=== PATIENT | female | born 1970 | race Caucasian/White ===

== ENCOUNTER 2018-02-20 07:12 | Inpatient (IN) ==
[2018-02-20 08:09] LABS: Baso % (Auto) 1.1 % (0.0-2.0); Eos # (Auto) 0.1 th/mm3 (0.0-0.4); Eos % (Auto) 3.6 % (0.0-4.0); Hematocrit 45.4 % (35.0-46.0); Hemoglobin 15.4 gm/dL (11.6-15.3); Lymph # (Auto) 0.9 th/mm3 (1.0-4.8); Lymph % (Auto) 21.7 % (9.0-44.0); Mean Corpuscular HGB Conc 33.8 % (32.0-36.0); Mean Corpuscular Hemoglobin 35.4 pg (27.0-34.0); Mean Corpuscular Volume 104.7 fL (80.0-100.0); Mean Platelet Volume 9.6 fL (7.0-11.0); Mono # (Auto) 0.4 th/mm3 (0.0-0.9); Mono % (Auto) 10.7 % (0.0-8.0); Neut # (Auto) 2.5 th/mm3 (1.8-7.7); Neut % (Auto) 62.9 % (16.0-70.0); Platelet Count 95 th/mm3 (150-450); Red Blood Count 4.33 mil/mm3 (4.00-5.30); Red Cell Distribution Width 14.7 % (11.6-17.2)
[2018-02-20 08:24] LABS: Alanine Aminotransferase 58 U/L (10-53); Albumin 4.2 g/dL (3.4-5.0); Anion Gap 7 meq/L (5-15); Aspartate Aminotransferase 69 U/L (15-37); Blood Urea Nitrogen 9 mg/dL (7-18); Calcium 9.2 mg/dL (8.5-10.1); Carbon Dioxide 29.7 meq/L (21.0-32.0); Chloride 99 meq/L (98-107); Glomerular Filtration Rate 82 mL/min (>89); Glucose,Random 209 mg/dL (74-106); Potassium 3.8 meq/L (3.5-5.1); Sodium 136 meq/L (136-145)
[2018-02-20 08:29] LABS: Alkaline Phosphatase 94 U/L (45-117); Total Protein 9.4 g/dL (6.4-8.2)
--- NOTE | 2018-02-20 08:37 | XR ---
EXAM DATE: 02/20/2018 8:19 AM EST AGE/SEX: 48 years / Female INDICATIONS: . Chest pain, shortness of breath, vertigo, nausea, vomiting, headache, and blurred vis ion all started last night CLINICAL DATA: This is the patient's initial encounter. Patient reports that signs and symptoms have been present for 1 day and indicates a pain score of 6/10. MEDICAL/SURGICAL HISTORY: None. Abdominal aortic aneurysm repair. COMPARISON: No prior exams available for comparison. FINDINGS: PA and lateral views of the chest demonstrate the lungs to be symmetrically aerated without evidence of mass, infiltrate or effusion. The cardiomediastinal contours are unremarkable. Osseous structures are intact. CONCLUSION: Negative examination. Electronically signed by: Siddharth Zambrano MD 02/20/2018 8:36 AM EST
[2018-02-20 09:09] LABS: Platelet Morphology Normal (Normal)
[2018-02-20] MEDS ORDERED: Morphine Inj 4 MG/ML Vial IV.PUSH ONE ×3 (09:23→15:00)
--- NOTE | 2018-02-20 09:23 | ED ---
HPI General Chief Complaint: Chest Pain Stated Complaint: Dizziness/tightness in chest/blurry vision Time Seen by Provider: 02/20/18 09:22 Source: patient Mode of arrival: ambulatory Limitations: no limitations History of Present Illness MD complaint: Reports chest pain STEMI Alert: No Onset (ago): day(s) (1) Duration: intermittent Onset: during exertion Pain location: Reports substernal Severity: mild Severity scale (1-10): 4 Quality: Reports tightness and heaviness Pain radiation: Reports none Relieving factors: nothing Exacerbating factors: exertion Associated symptoms: Reports nausea, vomiting and palpitations Treatments prior to arrival chest pain: Reports none Related Data On Oral Contraceptives: No Home Medications Medication Instructions Recorded Confirmed amitriptyline 10 mg PO HS 02/20/18 02/20/18 amlodipine 5 mg PO DAILY 02/20/18 02/20/18 duloxetine 30 mg PO DAILY 02/20/18 02/20/18 gabapentin 600 mg PO HS 02/20/18 02/20/18 glimepiride 4 mg PO BID 02/20/18 02/20/18 lisinopril 20 mg PO DAILY 02/20/18 02/20/18 metformin 500 mg PO BID 02/20/18 02/20/18 Allergies Allergy/AdvReac Type Severity Reaction Status Date / Time coconut Allergy Anaphylaxis Verified 02/20/18 09:26 Review of Systems ROS: all other systems reviewed are negative PMFSH History History Provided By: Patient Medical History Medical History Diabetes (Acute) HTN (hypertension) (Acute) Hypercholesterolemia (Acute) Surgical History Surgical History No history of previous surgery (Acute) Social History Social History Substance History: No History of Abuse Second Hand Smoke Exposure: No Smoking Status: Never smoker How Often Do You Have a Drink Containing Alcohol: 4 or more times a week Recent Travel in [facility] within the Last 8 Weeks: No Recent Out of Country Travel within the Last 8 Weeks: No Exam Narrative Exam Narrative: GENERAL: Well-nourished, well-developed patient in no apparent distress. SKIN: Warm and dry. HEAD: Atraumatic. Normocephalic. EYES: Pupils equal and round. No scleral icterus. No injection or drainage. ENT: No nasal bleeding or discharge. Mucous membranes pink and moist. NECK: Trachea midline. No JVD. CARDIOVASCULAR: Regular rate and rhythm. no rubs or gallops RESPIRATORY: No accessory muscle use. Clear to auscultation. Breath sounds equal bilaterally. GASTROINTESTINAL: Abdomen soft, non-tender, nondistended. No rebound or guarding MUSCULOSKELETAL: Extremities without clubbing, cyanosis, or edema. No obvious deformities. NEUROLOGICAL: Awake and alert. No obvious cranial nerve deficits. Motor grossly within normal limits. Five out of 5 muscle strength in the arms and legs. Normal speech. PSYCHIATRIC: Appropriate mood and affect; insight and judgment normal. Course Initial Documented Vital Signs Temperature 98.6 F 02/20/18 07:19 Pulse Rate 100 H 02/20/18 07:19 Respiratory Rate 18 02/20/18 07:19 Blood Pressure 198/102 H 02/20/18 07:19 Pulse Oximetry 96 02/20/18 07:19 Last Documented Vital Signs Temperature 97.9 F 02/25/18 04:00 Pulse Rate 70 02/25/18 06:00 Respiratory Rate 16 02/25/18 04:00 Blood Pressure 147/90 H 02/25/18 04:00 Pulse Oximetry 94 L 02/25/18 04:00 Medical Decision Making MDM Narrative Medical decision making narrative: Electrodes are within normal limits with exception of a random glucose 209. Kidney functions normal First set of troponin negative Mildly elevated total bilirubin 1.5 AST of 69 ALT of 58 No leukocytosis, hemoglobin 15 hematocrit 45, megaloblastic ptosis of 105 MCV, decreased platelet count of 95,000 no left shift Chest x-ray read as negative examination by radiologist Case discussed with Dr. Terry for [facility] who recommended chest pain center Medical Screen Exam Complete: Yes Emergency Medical Condition: Yes Differential Diagnosis Differential Diagnosis: nonstemi versus STEMI versus DKA versus pna Medical Records Medical records reviewed: Yes I reviewed the patient's medical records. Lab Data Result diagrams: 02/25/18 04:55 02/25/18 04:55 POC Results POC Urine Results Negative Lab Results 02/20/18 02/20/18 02/20/18 Range/Units 07:42 07:42 07:42 WBC 4.0 (4.0-11.0) th/mm3 RBC 4.33 (4.00-5.30) mil/mm3 Hgb 15.4 H (11.6-15.3) gm/dL Hct 45.4 (35.0-46.0) % MCV 104.7 H (80.0-100.0) fL MCH 35.4 H (27.0-34.0) pg MCHC 33.8 (32.0-36.0) % RDW 14.7 (11.6-17.2) % Plt Count 95 L (150-450) th/mm3 MPV 9.6 (7.0-11.0) fL Prelim Diff (Auto) Slide review pending Neut % (Auto) 62.9 (16.0-70.0) % Lymph % (Auto) 21.7 (9.0-44.0) % [place] % (Auto) 10.7 H (0.0-8.0) % Eos % (Auto) 3.6 (0.0-4.0) % Baso % (Auto) 1.1 (0.0-2.0) % Neut # (Auto) 2.5 (1.8-7.7) th/mm3 Lymph # (Auto) 0.9 L (1.0-4.8) th/mm3 [place] # (Auto) 0.4 (0.0-0.9) th/mm3 Eos # (Auto) 0.1 (0.0-0.4) th/mm3 Baso # (Auto) 0.0 (0.0-0.2) th/mm3 WBC Differential . Diff Scan Auto diff confirmed Seg Neuts % (Manual) (16-70) % Band Neuts % (Manual) (0-6) % Lymphocytes % (Manual) (9-44) % Monocytes % (Manual) (0-8) % Eosinophils % (Manual) (0-4) % Basophils % (Manual) (0-2) % Metamyelocytes % (Man) (0-1) % Blast Cells % (Manual) (0-0) % Abs Neuts (Manual) (1.8-7.7) th/mm3 Differential Comment . Platelet Estimate Low L (Normal) Platelet Morphology Normal (Normal) Smear Path Review Retic Count (0.4-3.0) % Absolute Retic (20.0-150.0) mil/L PT (9.8-11.6) sec INR Ratio APTT (23.4-31.7) sec Thrombin Time Fibrinogen (227-377) mg/dL D-Dimer Quant (PE/DVT) (0.00-0.50) mg/L FEU Lupus Anticoagulant (NOT DETECTED) Lupus Anticoag aPTT (< OR = 40) seconds Dil Sebastián Viper Venom (< OR = 45) seconds dRVVT Confirm Interp dRVVT Mix Pat/Norm 1:1 dRVVT Mix Interpret Hexagonal Phase Confirm Sodium 136 (136-145) meq/L Potassium 3.8 (3.5-5.1) meq/L Chloride 99 (98-107) meq/L Carbon Dioxide 29.7 (21.0-32.0) meq/L Anion Gap 7 (5-15) meq/L BUN 9 (7-18) mg/dL Creatinine 0.76 (0.50-1.00) mg/dL Estimated GFR 82 L (>89) mL/min POC Glucose (68-110) mg/dl Random Glucose 209 H (74-106) mg/dL Hemoglobin A1c (4.3-6.0) % Calcium 9.2 (8.5-10.1) mg/dL Total Bilirubin 1.5 H (0.2-1.0) mg/dL AST 69 H (15-37) U/L ALT 58 H (10-53) U/L Alkaline Phosphatase 94 (45-117) U/L Lactate Dehydrogenase (84-246) U/L Total Creatine Kinase (26-192) U/L CK-MB (CK-2) (0.5-3.6) ng/mL CK-MB (CK-2) % (0.0-4.0) % Troponin I Less than 0.02 L (0.02-0.05) ng/mL Total Protein 9.4 H (6.4-8.2) g/dL Albumin 4.2 (3.4-5.0) g/dL Triglycerides (42-150) mg/dL Cholesterol (120-200) mg/dL LDL Cholesterol, Calc (0-99) mg/dL HDL Cholesterol (40.0-60.0) mg/dL Cholesterol/HDL Ratio Ratio Lipase 242 (73-393) U/L Vitamin B12 (193-986) pg/mL Folate (3.1-17.5) ng/mL Beta HCG, Quant (0-5) mIU/mL Urine Color (Yellw/Straw) Urine Clarity (Clear) Urine pH (5.0-8.5) Ur Specific [place] (1.002-1.035) Urine Protein (Neg-Trace) mg/dL Urine Glucose (UA) (Negative) mg/dL Urine Ketones (Negative) mg/dL Urine Occult Blood (Negative) Urine Nitrate (Negative) Urine Bilirubin (Negative) Urine Urobilinogen (Less than 2) mg/dL Ur Leukocyte Esterase (Negative) Urine WBC (0-5) /hpf Ur Squamous Epith Cells (0-5) /hpf Micro UA Comment Ur Microscopic Review Urine Culture Comments Nasal Screen MRSA (PCR) (Negative) Beta-2-GPI IgG Ab (< OR = 20) SGU Beta-2-GPI IgA Ab (< OR = 20) ZENA Beta-2-GPI IgM Ab (< OR = 20) [facility] Heparin Dep Plt Ab OD (0.000-1.0) U/mL Hep-Induced Plt Ab Trisha (Negative) Anti-Cardiolipin IgG Ab (0-14) GPL U/mL Anti-Cardiolipin IgA Ab (0-11) APL U/mL Anti-Cardiolipin IgM Ab (0-12) MPL U/mL Blood Type Antibody Screen MTS Gel Crossmatch 02/20/18 02/20/18 02/20/18 Range/Units 07:42 11:55 12:01 WBC (4.0-11.0) th/mm3 RBC (4.00-5.30) mil/mm3 Hgb (11.6-15.3) gm/dL Hct (35.0-46.0) % MCV (80.0-100.0) fL MCH (27.0-34.0) pg MCHC (32.0-36.0) % RDW (11.6-17.2) % Plt Count (150-450) th/mm3 MPV (7.0-11.0) fL Prelim Diff (Auto) Neut % (Auto) (16.0-70.0) % Lymph % (Auto) (9.0-44.0) % [place] % (Auto) (0.0-8.0) % Eos % (Auto) (0.0-4.0) % Baso % (Auto) (0.0-2.0) % Neut # (Auto) (1.8-7.7) th/mm3 Lymph # (Auto) (1.0-4.8) th/mm3 [place] # (Auto) (0.0-0.9) th/mm3 Eos # (Auto) (0.0-0.4) th/mm3 Baso # (Auto) (0.0-0.2) th/mm3 WBC Differential Diff Scan Seg Neuts % (Manual) (16-70) % Band Neuts % (Manual) (0-6) % Lymphocytes % (Manual) (9-44) % Monocytes % (Manual) (0-8) % Eosinophils % (Manual) (0-4) % Basophils % (Manual) (0-2) % Metamyelocytes % (Man) (0-1) % Blast Cells % (Manual) (0-0) % Abs Neuts (Manual) (1.8-7.7) th/mm3 Differential Comment Platelet Estimate (Normal) Platelet Morphology (Normal) Smear Path Review Retic Count (0.4-3.0) % Absolute Retic (20.0-150.0) mil/L PT (9.8-11.6) sec INR Ratio APTT (23.4-31.7) sec Thrombin Time Fibrinogen (227-377) mg/dL D-Dimer Quant (PE/DVT) (0.00-0.50) mg/L FEU Lupus Anticoagulant (NOT DETECTED) Lupus Anticoag aPTT (< OR = 40) seconds Dil Sebastián Viper Venom (< OR = 45) seconds dRVVT Confirm Interp dRVVT Mix Pat/Norm 1:1 dRVVT Mix Interpret Hexagonal Phase Confirm Sodium (136-145) meq/L Potassium (3.5-5.1) meq/L Chloride (98-107) meq/L Carbon Dioxide (21.0-32.0) meq/L Anion Gap (5-15) meq/L BUN (7-18) mg/dL Creatinine (0.50-1.00) mg/dL Estimated GFR (>89) mL/min POC Glucose 178 H (68-110) mg/dl Random Glucose (74-106) mg/dL Hemoglobin A1c 10.1 H (4.3-6.0) % Calcium (8.5-10.1) mg/dL Total Bilirubin (0.2-1.0) mg/dL AST (15-37) U/L ALT (10-53) U/L Alkaline Phosphatase (45-117) U/L Lactate Dehydrogenase (84-246) U/L Total Creatine Kinase 176 (26-192) U/L CK-MB (CK-2) (0.5-3.6) ng/mL CK-MB (CK-2) % (0.0-4.0) % Troponin I Less than 0.02 L (0.02-0.05) ng/mL Total Protein (6.4-8.2) g/dL Albumin (3.4-5.0) g/dL Triglycerides (42-150) mg/dL Cholesterol (120-200) mg/dL LDL Cholesterol, Calc (0-99) mg/dL HDL Cholesterol (40.0-60.0) mg/dL Cholesterol/HDL Ratio Ratio Lipase (73-393) U/L Vitamin B12 (193-986) pg/mL Folate (3.1-17.5) ng/mL Beta HCG, Quant (0-5) mIU/mL Urine Color (Yellw/Straw) Urine Clarity (Clear) Urine pH (5.0-8.5) Ur Specific [place] (1.002-1.035) Urine Protein (Neg-Trace) mg/dL Urine Glucose (UA) (Negative) mg/dL Urine Ketones (Negative) mg/dL Urine Occult Blood (Negative) Urine Nitrate (Negative) Urine Bilirubin (Negative) Urine Urobilinogen (Less than 2) mg/dL Ur Leukocyte Esterase (Negative) Urine WBC (0-5) /hpf Ur Squamous Epith Cells (0-5) /hpf Micro UA Comment Ur Microscopic Review Urine Culture Comments Nasal Screen MRSA (PCR) (Negative) Beta-2-GPI IgG Ab (< OR = 20) SGU Beta-2-GPI IgA Ab (< OR = 20) ZENA Beta-2-GPI IgM Ab (< OR = 20) [facility] Heparin Dep Plt Ab OD (0.000-1.0) U/mL Hep-Induced Plt Ab Trisha (Negative) Anti-Cardiolipin IgG Ab (0-14) GPL U/mL Anti-Cardiolipin IgA Ab (0-11) APL U/mL Anti-Cardiolipin IgM Ab (0-12) MPL U/mL Blood Type Antibody Screen MTS Gel Crossmatch 02/20/18 02/20/18 02/21/18 Range/Units 14:10 17:49 08:14 WBC (4.0-11.0) th/mm3 RBC (4.00-5.30) mil/mm3 Hgb (11.6-15.3) gm/dL Hct (35.0-46.0) % MCV (80.0-100.0) fL MCH (27.0-34.0) pg MCHC (32.0-36.0) % RDW (11.6-17.2) % Plt Count (150-450) th/mm3 MPV (7.0-11.0) fL Prelim Diff (Auto) Neut % (Auto) (16.0-70.0) % Lymph % (Auto) (9.0-44.0) % [place] % (Auto) (0.0-8.0) % Eos % (Auto) (0.0-4.0) % Baso % (Auto) (0.0-2.0) % Neut # (Auto) (1.8-7.7) th/mm3 Lymph # (Auto) (1.0-4.8) th/mm3 [place] # (Auto) (0.0-0.9) th/mm3 Eos # (Auto) (0.0-0.4) th/mm3 Baso # (Auto) (0.0-0.2) th/mm3 WBC Differential Diff Scan Seg Neuts % (Manual) (16-70) % Band Neuts % (Manual) (0-6) % Lymphocytes % (Manual) (9-44) % Monocytes % (Manual) (0-8) % Eosinophils % (Manual) (0-4) % Basophils % (Manual) (0-2) % Metamyelocytes % (Man) (0-1) % Blast Cells % (Manual) (0-0) % Abs Neuts (Manual) (1.8-7.7) th/mm3 Differential Comment Platelet Estimate (Normal) Platelet Morphology (Normal) Smear Path Review Retic Count (0.4-3.0) % Absolute Retic (20.0-150.0) mil/L PT (9.8-11.6) sec INR Ratio APTT (23.4-31.7) sec Thrombin Time Fibrinogen (227-377) mg/dL D-Dimer Quant (PE/DVT) (0.00-0.50) mg/L FEU Lupus Anticoagulant (NOT DETECTED) Lupus Anticoag aPTT (< OR = 40) seconds Dil Sebastián Viper Venom (< OR = 45) seconds dRVVT Confirm Interp dRVVT Mix Pat/Norm 1:1 dRVVT Mix Interpret Hexagonal Phase Confirm Sodium (136-145) meq/L Potassium (3.5-5.1) meq/L Chloride (98-107) meq/L Carbon Dioxide (21.0-32.0) meq/L Anion Gap (5-15) meq/L BUN (7-18) mg/dL Creatinine (0.50-1.00) mg/dL Estimated GFR (>89) mL/min POC Glucose 154 H 162 H (68-110) mg/dl Random Glucose (74-106) mg/dL Hemoglobin A1c (4.3-6.0) % Calcium (8.5-10.1) mg/dL Total Bilirubin (0.2-1.0) mg/dL AST (15-37) U/L ALT (10-53) U/L Alkaline Phosphatase (45-117) U/L Lactate Dehydrogenase (84-246) U/L Total Creatine Kinase 196 H (26-192) U/L CK-MB (CK-2) 1.7 (0.5-3.6) ng/mL CK-MB (CK-2) % 0.9 (0.0-4.0) % Troponin I Less than 0.02 L (0.02-0.05) ng/mL Total Protein (6.4-8.2) g/dL Albumin (3.4-5.0) g/dL Triglycerides (42-150) mg/dL Cholesterol (120-200) mg/dL LDL Cholesterol, Calc (0-99) mg/dL HDL Cholesterol (40.0-60.0) mg/dL Cholesterol/HDL Ratio Ratio Lipase (73-393) U/L Vitamin B12 (193-986) pg/mL Folate (3.1-17.5) ng/mL Beta HCG, Quant (0-5) mIU/mL Urine Color (Yellw/Straw) Urine Clarity (Clear) Urine pH (5.0-8.5) Ur Specific [place] (1.002-1.035) Urine Protein (Neg-Trace) mg/dL Urine Glucose (UA) (Negative) mg/dL Urine Ketones (Negative) mg/dL Urine Occult Blood (Negative) Urine Nitrate (Negative) Urine Bilirubin (Negative) Urine Urobilinogen (Less than 2) mg/dL Ur Leukocyte Esterase (Negative) Urine WBC (0-5) /hpf Ur Squamous Epith Cells (0-5) /hpf Micro UA Comment Ur Microscopic Review Urine Culture Comments Nasal Screen MRSA (PCR) (Negative) Beta-2-GPI IgG Ab (< OR = 20) SGU Beta-2-GPI IgA Ab (< OR = 20) ZENA Beta-2-GPI IgM Ab (< OR = 20) [facility] Heparin Dep Plt Ab OD (0.000-1.0) U/mL Hep-Induced Plt Ab Trisha (Negative) Anti-Cardiolipin IgG Ab (0-14) GPL U/mL Anti-Cardiolipin IgA Ab (0-11) APL U/mL Anti-Cardiolipin IgM Ab (0-12) MPL U/mL Blood Type Antibody Screen MTS Gel Crossmatch 02/21/18 02/21/18 02/21/18 Range/Units 09:48 09:48 09:48 WBC 3.6 L (4.0-11.0) th/mm3 RBC 3.86 L (4.00-5.30) mil/mm3 Hgb 13.8 (11.6-15.3) gm/dL Hct 40.6 (35.0-46.0) % MCV 105.0 H (80.0-100.0) fL MCH 35.7 H (27.0-34.0) pg MCHC 34.0 (32.0-36.0) % RDW 14.0 (11.6-17.2) % Plt Count 69 L (150-450) th/mm3 MPV 9.9 (7.0-11.0) fL Prelim Diff (Auto) Slide review pending Neut % (Auto) 59.9 (16.0-70.0) % Lymph % (Auto) 20.7 (9.0-44.0) % [place] % (Auto) 11.5 H (0.0-8.0) % Eos % (Auto) 6.7 H (0.0-4.0) % Baso % (Auto) 1.2 (0.0-2.0) % Neut # (Auto) 2.1 (1.8-7.7) th/mm3 Lymph # (Auto) 0.7 L (1.0-4.8) th/mm3 [place] # (Auto) 0.4 (0.0-0.9) th/mm3 Eos # (Auto) 0.2 (0.0-0.4) th/mm3 Baso # (Auto) 0.0 (0.0-0.2) th/mm3 WBC Differential Manual diff final Diff Scan Seg Neuts % (Manual) 53 (16-70) % Band Neuts % (Manual) 3 (0-6) % Lymphocytes % (Manual) 23 (9-44) % Monocytes % (Manual) 7 (0-8) % Eosinophils % (Manual) 9 H (0-4) % Basophils % (Manual) 3 H (0-2) % Metamyelocytes % (Man) 1 (0-1) % Blast Cells % (Manual) 1 H (0-0) % Abs Neuts (Manual) 2.1 (1.8-7.7) th/mm3 Differential Comment . Platelet Estimate Low L (Normal) Platelet Morphology Normal (Normal) Smear Path Review Retic Count (0.4-3.0) % Absolute Retic (20.0-150.0) mil/L PT (9.8-11.6) sec INR Ratio APTT (23.4-31.7) sec Thrombin Time Fibrinogen (227-377) mg/dL D-Dimer Quant (PE/DVT) (0.00-0.50) mg/L FEU Lupus Anticoagulant (NOT DETECTED) Lupus Anticoag aPTT (< OR = 40) seconds Dil Sebastián Viper Venom (< OR = 45) seconds dRVVT Confirm Interp dRVVT Mix Pat/Norm 1:1 dRVVT Mix Interpret Hexagonal Phase Confirm Sodium 137 (136-145) meq/L Potassium 3.8 (3.5-5.1) meq/L Chloride 102 (98-107) meq/L Carbon Dioxide 27.2 (21.0-32.0) meq/L Anion Gap 8 (5-15) meq/L BUN 9 (7-18) mg/dL Creatinine 0.61 (0.50-1.00) mg/dL Estimated GFR Greater than 89 (>89) mL/min POC Glucose (68-110) mg/dl Random Glucose 173 H (74-106) mg/dL Hemoglobin A1c 10.1 H (4.3-6.0) % Calcium 8.2 L D (8.5-10.1) mg/dL Total Bilirubin 1.2 H (0.2-1.0) mg/dL AST 117 H (15-37) U/L ALT 64 H (10-53) U/L Alkaline Phosphatase 70 (45-117) U/L Lactate Dehydrogenase (84-246) U/L Total Creatine Kinase (26-192) U/L CK-MB (CK-2) (0.5-3.6) ng/mL CK-MB (CK-2) % (0.0-4.0) % Troponin I (0.02-0.05) ng/mL Total Protein 7.8 D (6.4-8.2) g/dL Albumin 3.5 D (3.4-5.0) g/dL Triglycerides 140 (42-150) mg/dL Cholesterol 209 H (120-200) mg/dL LDL Cholesterol, Calc 145 H (0-99) mg/dL HDL Cholesterol 36.5 L (40.0-60.0) mg/dL Cholesterol/HDL Ratio 5.72 Ratio Lipase (73-393) U/L Vitamin B12 (193-986) pg/mL Folate (3.1-17.5) ng/mL Beta HCG, Quant (0-5) mIU/mL Urine Color (Yellw/Straw) Urine Clarity (Clear) Urine pH (5.0-8.5) Ur Specific [place] (1.002-1.035) Urine Protein (Neg-Trace) mg/dL Urine Glucose (UA) (Negative) mg/dL Urine Ketones (Negative) mg/dL Urine Occult Blood (Negative) Urine Nitrate (Negative) Urine Bilirubin (Negative) Urine Urobilinogen (Less than 2) mg/dL Ur Leukocyte Esterase (Negative) Urine WBC (0-5) /hpf Ur Squamous Epith Cells (0-5) /hpf Micro UA Comment Ur Microscopic Review Urine Culture Comments Nasal Screen MRSA (PCR) (Negative) Beta-2-GPI IgG Ab (< OR = 20) [facility]U Beta-2-GPI IgA Ab (< OR = 20) ZENA Beta-2-GPI IgM Ab (< OR = 20) [facility] Heparin Dep Plt Ab OD (0.000-1.0) U/mL Hep-Induced Plt Ab Trisha (Negative) Anti-Cardiolipin IgG Ab (0-14) GPL U/mL Anti-Cardiolipin IgA Ab (0-11) APL U/mL Anti-Cardiolipin IgM Ab (0-12) MPL U/mL Blood Type Antibody Screen MTS Gel Crossmatch 02/21/18 02/21/18 02/21/18 Range/Units 12:06 13:45 13:55 WBC (4.0-11.0) th/mm3 RBC (4.00-5.30) mil/mm3 Hgb (11.6-15.3) gm/dL Hct (35.0-46.0) % MCV (80.0-100.0) fL MCH (27.0-34.0) pg MCHC (32.0-36.0) % RDW (11.6-17.2) % Plt Count (150-450) th/mm3 MPV (7.0-11.0) fL Prelim Diff (Auto) Neut % (Auto) (16.0-70.0) % Lymph % (Auto) (9.0-44.0) % [place] % (Auto) (0.0-8.0) % Eos % (Auto) (0.0-4.0) % Baso % (Auto) (0.0-2.0) % Neut # (Auto) (1.8-7.7) th/mm3 Lymph # (Auto) (1.0-4.8) th/mm3 [place] # (Auto) (0.0-0.9) th/mm3 Eos # (Auto) (0.0-0.4) th/mm3 Baso # (Auto) (0.0-0.2) th/mm3 WBC Differential Diff Scan Seg Neuts % (Manual) (16-70) % Band Neuts % (Manual) (0-6) % Lymphocytes % (Manual) (9-44) % Monocytes % (Manual) (0-8) % Eosinophils % (Manual) (0-4) % Basophils % (Manual) (0-2) % Metamyelocytes % (Man) (0-1) % Blast Cells % (Manual) (0-0) % Abs Neuts (Manual) (1.8-7.7) th/mm3 Differential Comment Platelet Estimate (Normal) Platelet Morphology (Normal) Smear Path Review Retic Count (0.4-3.0) % Absolute Retic (20.0-150.0) mil/L PT 13.7 H (9.8-11.6) sec INR 1.4 Ratio APTT 34.3 H (23.4-31.7) sec Thrombin Time Fibrinogen 272 (227-377) mg/dL D-Dimer Quant (PE/DVT) 0.93 H (0.00-0.50) mg/L FEU Lupus Anticoagulant (NOT DETECTED) Lupus Anticoag aPTT (< OR = 40) seconds Dil Sebastián Viper Venom (< OR = 45) seconds dRVVT Confirm Interp dRVVT Mix Pat/Norm 1:1 dRVVT Mix Interpret Hexagonal Phase Confirm Sodium (136-145) meq/L Potassium (3.5-5.1) meq/L Chloride (98-107) meq/L Carbon Dioxide (21.0-32.0) meq/L Anion Gap (5-15) meq/L BUN (7-18) mg/dL Creatinine (0.50-1.00) mg/dL Estimated GFR (>89) mL/min POC Glucose 214 H (68-110) mg/dl Random Glucose (74-106) mg/dL Hemoglobin A1c (4.3-6.0) % Calcium (8.5-10.1) mg/dL Total Bilirubin (0.2-1.0) mg/dL AST (15-37) U/L ALT (10-53) U/L Alkaline Phosphatase (45-117) U/L Lactate Dehydrogenase (84-246) U/L Total Creatine Kinase (26-192) U/L CK-MB (CK-2) (0.5-3.6) ng/mL CK-MB (CK-2) % (0.0-4.0) % Troponin I (0.02-0.05) ng/mL Total Protein (6.4-8.2) g/dL Albumin (3.4-5.0) g/dL Triglycerides (42-150) mg/dL Cholesterol (120-200) mg/dL LDL Cholesterol, Calc (0-99) mg/dL HDL Cholesterol (40.0-60.0) mg/dL Cholesterol/HDL Ratio Ratio Lipase (73-393) U/L Vitamin B12 (193-986) pg/mL Folate (3.1-17.5) ng/mL Beta HCG, Quant (0-5) mIU/mL Urine Color Yellow (Yellw/Straw) Urine Clarity Hazy H (Clear) Urine pH 6.0 (5.0-8.5) Ur Specific [place] Greater than 1.060 H (1.002-1.035) Urine Protein Negative (Neg-Trace) mg/dL Urine Glucose (UA) Negative (Negative) mg/dL Urine Ketones 20 (Negative) mg/dL Urine Occult Blood Negative (Negative) Urine Nitrate Negative (Negative) Urine Bilirubin Negative (Negative) Urine Urobilinogen 0.2 (Less than 2) mg/dL Ur Leukocyte Esterase Large H (Negative) Urine WBC 1 (0-5) /hpf Ur Squamous Epith Cells 16 (0-5) /hpf Micro UA Comment Culture not ind Ur Microscopic Review Not Reportable Urine Culture Comments Culture not ind Nasal Screen MRSA (PCR) (Negative) Beta-2-GPI IgG Ab (< OR = 20) [facility] Beta-2-GPI IgA Ab (< OR = 20) [facility] Beta-2-GPI IgM Ab (< OR = 20) [facility] Heparin Dep Plt Ab OD (0.000-1.0) U/mL Hep-Induced Plt Ab Trisha (Negative) Anti-Cardiolipin IgG Ab (0-14) GPL U/mL Anti-Cardiolipin IgA Ab (0-11) APL U/mL Anti-Cardiolipin IgM Ab (0-12) MPL U/mL Blood Type Antibody Screen MTS Gel Crossmatch 02/21/18 02/21/18 02/21/18 Range/Units 13:55 13:55 13:57 WBC (4.0-11.0) th/mm3 RBC (4.00-5.30) mil/mm3 Hgb (11.6-15.3) gm/dL Hct (35.0-46.0) % MCV (80.0-100.0) fL MCH (27.0-34.0) pg MCHC (32.0-36.0) % RDW (11.6-17.2) % Plt Count (150-450) th/mm3 MPV (7.0-11.0) fL Prelim Diff (Auto) Neut % (Auto) (16.0-70.0) % Lymph % (Auto) (9.0-44.0) % [place] % (Auto) (0.0-8.0) % Eos % (Auto) (0.0-4.0) % Baso % (Auto) (0.0-2.0) % Neut # (Auto) (1.8-7.7) th/mm3 Lymph # (Auto) (1.0-4.8) th/mm3 [place] # (Auto) (0.0-0.9) th/mm3 Eos # (Auto) (0.0-0.4) th/mm3 Baso # (Auto) (0.0-0.2) th/mm3 WBC Differential Diff Scan Seg Neuts % (Manual) (16-70) % Band Neuts % (Manual) (0-6) % Lymphocytes % (Manual) (9-44) % Monocytes % (Manual) (0-8) % Eosinophils % (Manual) (0-4) % Basophils % (Manual) (0-2) % Metamyelocytes % (Man) (0-1) % Blast Cells % (Manual) (0-0) % Abs Neuts (Manual) (1.8-7.7) th/mm3 Differential Comment Platelet Estimate (Normal) Platelet Morphology (Normal) Smear Path Review Retic Count (0.4-3.0) % Absolute Retic (20.0-150.0) mil/L PT (9.8-11.6) sec INR Ratio APTT (23.4-31.7) sec Thrombin Time Fibrinogen Cancelled (227-377) mg/dL D-Dimer Quant (PE/DVT) Cancelled (0.00-0.50) mg/L FEU Lupus Anticoagulant (NOT DETECTED) Lupus Anticoag aPTT (< OR = 40) seconds Dil Sebastián Viper Venom (< OR = 45) seconds dRVVT Confirm Interp dRVVT Mix Pat/Norm 1:1 dRVVT Mix Interpret Hexagonal Phase Confirm Sodium (136-145) meq/L Potassium (3.5-5.1) meq/L Chloride (98-107) meq/L Carbon Dioxide (21.0-32.0) meq/L Anion Gap (5-15) meq/L BUN (7-18) mg/dL Creatinine (0.50-1.00) mg/dL Estimated GFR (>89) mL/min POC Glucose (68-110) mg/dl Random Glucose (74-106) mg/dL Hemoglobin A1c (4.3-6.0) % Calcium (8.5-10.1) mg/dL Total Bilirubin (0.2-1.0) mg/dL AST (15-37) U/L ALT (10-53) U/L Alkaline Phosphatase (45-117) U/L Lactate Dehydrogenase (84-246) U/L Total Creatine Kinase (26-192) U/L CK-MB (CK-2) (0.5-3.6) ng/mL CK-MB (CK-2) % (0.0-4.0) % Troponin I (0.02-0.05) ng/mL Total Protein (6.4-8.2) g/dL Albumin (3.4-5.0) g/dL Triglycerides (42-150) mg/dL Cholesterol (120-200) mg/dL LDL Cholesterol, Calc (0-99) mg/dL HDL Cholesterol (40.0-60.0) mg/dL Cholesterol/HDL Ratio Ratio Lipase (73-393) U/L Vitamin B12 (193-986) pg/mL Folate (3.1-17.5) ng/mL Beta HCG, Quant Less than 1 (0-5) mIU/mL Urine Color (Yellw/Straw) Urine Clarity (Clear) Urine pH (5.0-8.5) Ur Specific [place] (1.002-1.035) Urine Protein (Neg-Trace) mg/dL Urine Glucose (UA) (Negative) mg/dL Urine Ketones (Negative) mg/dL Urine Occult Blood (Negative) Urine Nitrate (Negative) Urine Bilirubin (Negative) Urine Urobilinogen (Less than 2) mg/dL Ur Leukocyte Esterase (Negative) Urine WBC (0-5) /hpf Ur Squamous Epith Cells (0-5) /hpf Micro UA Comment Ur Microscopic Review Urine Culture Comments Nasal Screen MRSA (PCR) Not detected (Negative) Beta-2-GPI IgG Ab (< OR = 20) [facility] Beta-2-GPI IgA Ab (< OR = 20) [facility] Beta-2-GPI IgM Ab (< OR = 20) [facility] Heparin Dep Plt Ab OD (0.000-1.0) U/mL Hep-Induced Plt Ab Trisha (Negative) Anti-Cardiolipin IgG Ab (0-14) GPL U/mL Anti-Cardiolipin IgA Ab (0-11) APL U/mL Anti-Cardiolipin IgM Ab (0-12) MPL U/mL Blood Type Antibody Screen MTS Gel Crossmatch 02/21/18 02/21/18 02/21/18 Range/Units 15:01 18:57 21:31 WBC (4.0-11.0) th/mm3 RBC (4.00-5.30) mil/mm3 Hgb (11.6-15.3) gm/dL Hct (35.0-46.0) % MCV (80.0-100.0) fL MCH (27.0-34.0) pg MCHC (32.0-36.0) % RDW (11.6-17.2) % Plt Count (150-450) th/mm3 MPV (7.0-11.0) fL Prelim Diff (Auto) Neut % (Auto) (16.0-70.0) % Lymph % (Auto) (9.0-44.0) % [place] % (Auto) (0.0-8.0) % Eos % (Auto) (0.0-4.0) % Baso % (Auto) (0.0-2.0) % Neut # (Auto) (1.8-7.7) th/mm3 Lymph # (Auto) (1.0-4.8) th/mm3 [place] # (Auto) (0.0-0.9) th/mm3 Eos # (Auto) (0.0-0.4) th/mm3 Baso # (Auto) (0.0-0.2) th/mm3 WBC Differential Diff Scan Seg Neuts % (Manual) (16-70) % Band Neuts % (Manual) (0-6) % Lymphocytes % (Manual) (9-44) % Monocytes % (Manual) (0-8) % Eosinophils % (Manual) (0-4) % Basophils % (Manual) (0-2) % Metamyelocytes % (Man) (0-1) % Blast Cells % (Manual) (0-0) % Abs Neuts (Manual) (1.8-7.7) th/mm3 Differential Comment Platelet Estimate (Normal) Platelet Morphology (Normal) Smear Path Review Retic Count (0.4-3.0) % Absolute Retic (20.0-150.0) mil/L PT (9.8-11.6) sec INR Ratio APTT (23.4-31.7) sec Thrombin Time Fibrinogen (227-377) mg/dL D-Dimer Quant (PE/DVT) (0.00-0.50) mg/L FEU Lupus Anticoagulant (NOT DETECTED) Lupus Anticoag aPTT (< OR = 40) seconds Dil Sebastián Viper Venom (< OR = 45) seconds dRVVT Confirm Interp dRVVT Mix Pat/Norm 1:1 dRVVT Mix Interpret Hexagonal Phase Confirm Sodium (136-145) meq/L Potassium (3.5-5.1) meq/L Chloride (98-107) meq/L Carbon Dioxide (21.0-32.0) meq/L Anion Gap (5-15) meq/L BUN (7-18) mg/dL Creatinine (0.50-1.00) mg/dL Estimated GFR (>89) mL/min POC Glucose 195 H 191 H (68-110) mg/dl Random Glucose (74-106) mg/dL Hemoglobin A1c (4.3-6.0) % Calcium (8.5-10.1) mg/dL Total Bilirubin (0.2-1.0) mg/dL AST (15-37) U/L ALT (10-53) U/L Alkaline Phosphatase (45-117) U/L Lactate Dehydrogenase (84-246) U/L Total Creatine Kinase (26-192) U/L CK-MB (CK-2) (0.5-3.6) ng/mL CK-MB (CK-2) % (0.0-4.0) % Troponin I (0.02-0.05) ng/mL Total Protein (6.4-8.2) g/dL Albumin (3.4-5.0) g/dL Triglycerides (42-150) mg/dL Cholesterol (120-200) mg/dL LDL Cholesterol, Calc (0-99) mg/dL HDL Cholesterol (40.0-60.0) mg/dL Cholesterol/HDL Ratio Ratio Lipase (73-393) U/L Vitamin B12 (193-986) pg/mL Folate (3.1-17.5) ng/mL Beta HCG, Quant (0-5) mIU/mL Urine Color (Yellw/Straw) Urine Clarity (Clear) Urine pH (5.0-8.5) Ur Specific [place] (1.002-1.035) Urine Protein (Neg-Trace) mg/dL Urine Glucose (UA) (Negative) mg/dL Urine Ketones (Negative) mg/dL Urine Occult Blood (Negative) Urine Nitrate (Negative) Urine Bilirubin (Negative) Urine Urobilinogen (Less than 2) mg/dL Ur Leukocyte Esterase (Negative) Urine WBC (0-5) /hpf Ur Squamous Epith Cells (0-5) /hpf Micro UA Comment Ur Microscopic Review Urine Culture Comments Nasal Screen MRSA (PCR) (Negative) Beta-2-GPI IgG Ab (< OR = 20) [facility] Beta-2-GPI IgA Ab (< OR = 20) ZENA Beta-2-GPI IgM Ab (< OR = 20) [facility] Heparin Dep Plt Ab OD 0.484 (0.000-1.0) U/mL Hep-Induced Plt Ab Trisha Negative (Negative) Anti-Cardiolipin IgG Ab (0-14) GPL U/mL Anti-Cardiolipin IgA Ab (0-11) APL U/mL Anti-Cardiolipin IgM Ab (0-12) MPL U/mL Blood Type Antibody Screen MTS Gel Crossmatch 02/22/18 02/22/18 02/22/18 Range/Units 05:59 05:59 05:59 WBC 3.8 L (4.0-11.0) th/mm3 RBC 3.86 L (4.00-5.30) mil/mm3 Hgb 13.8 (11.6-15.3) gm/dL Hct 39.6 (35.0-46.0) % MCV 102.5 H (80.0-100.0) fL MCH 35.6 H (27.0-34.0) pg MCHC 34.8 (32.0-36.0) % RDW 14.0 (11.6-17.2) % Plt Count 73 L (150-450) th/mm3 MPV 10.3 (7.0-11.0) fL Prelim Diff (Auto) Neut % (Auto) (16.0-70.0) % Lymph % (Auto) (9.0-44.0) % [place] % (Auto) (0.0-8.0) % Eos % (Auto) (0.0-4.0) % Baso % (Auto) (0.0-2.0) % Neut # (Auto) (1.8-7.7) th/mm3 Lymph # (Auto) (1.0-4.8) th/mm3 [place] # (Auto) (0.0-0.9) th/mm3 Eos # (Auto) (0.0-0.4) th/mm3 Baso # (Auto) (0.0-0.2) th/mm3 WBC Differential Diff Scan Seg Neuts % (Manual) (16-70) % Band Neuts % (Manual) (0-6) % Lymphocytes % (Manual) (9-44) % Monocytes % (Manual) (0-8) % Eosinophils % (Manual) (0-4) % Basophils % (Manual) (0-2) % Metamyelocytes % (Man) (0-1) % Blast Cells % (Manual) (0-0) % Abs Neuts (Manual) (1.8-7.7) th/mm3 Differential Comment Platelet Estimate (Normal) Platelet Morphology (Normal) Smear Path Review Retic Count (0.4-3.0) % Absolute Retic (20.0-150.0) mil/L PT 12.7 H (9.8-11.6) sec INR 1.3 Ratio APTT 28.2 (23.4-31.7) sec Thrombin Time Fibrinogen (227-377) mg/dL D-Dimer Quant (PE/DVT) (0.00-0.50) mg/L FEU Lupus Anticoagulant (NOT DETECTED) Lupus Anticoag aPTT (< OR = 40) seconds Dil Sebastián Viper Venom (< OR = 45) seconds dRVVT Confirm Interp dRVVT Mix Pat/Norm 1:1 dRVVT Mix Interpret Hexagonal Phase Confirm Sodium 134 L (136-145) meq/L Potassium 3.7 (3.5-5.1) meq/L Chloride 101 (98-107) meq/L Carbon Dioxide 27.7 (21.0-32.0) meq/L Anion Gap 5 (5-15) meq/L BUN 11 (7-18) mg/dL Creatinine 0.69 (0.50-1.00) mg/dL Estimated GFR Greater than 89 (>89) mL/min POC Glucose (68-110) mg/dl Random Glucose 219 H (74-106) mg/dL Hemoglobin A1c (4.3-6.0) % Calcium 8.3 L (8.5-10.1) mg/dL Total Bilirubin 0.8 (0.2-1.0) mg/dL AST 72 H (15-37) U/L ALT 58 H (10-53) U/L Alkaline Phosphatase 90 (45-117) U/L Lactate Dehydrogenase 247 H (84-246) U/L Total Creatine Kinase (26-192) U/L CK-MB (CK-2) (0.5-3.6) ng/mL CK-MB (CK-2) % (0.0-4.0) % Troponin I (0.02-0.05) ng/mL Total Protein 7.7 (6.4-8.2) g/dL Albumin 3.4 (3.4-5.0) g/dL Triglycerides (42-150) mg/dL Cholesterol (120-200) mg/dL LDL Cholesterol, Calc (0-99) mg/dL HDL Cholesterol (40.0-60.0) mg/dL Cholesterol/HDL Ratio Ratio Lipase (73-393) U/L Vitamin B12 719 (193-986) pg/mL Folate 8.3 (3.1-17.5) ng/mL Beta HCG, Quant (0-5) mIU/mL Urine Color (Yellw/Straw) Urine Clarity (Clear) Urine pH (5.0-8.5) Ur Specific [place] (1.002-1.035) Urine Protein (Neg-Trace) mg/dL Urine Glucose (UA) (Negative) mg/dL Urine Ketones (Negative) mg/dL Urine Occult Blood (Negative) Urine Nitrate (Negative) Urine Bilirubin (Negative) Urine Urobilinogen (Less than 2) mg/dL Ur Leukocyte Esterase (Negative) Urine WBC (0-5) /hpf Ur Squamous Epith Cells (0-5) /hpf Micro UA Comment Ur Microscopic Review Urine Culture Comments Nasal Screen MRSA (PCR) (Negative) Beta-2-GPI IgG Ab (< OR = 20) [facility] Beta-2-GPI IgA Ab (< OR = 20) ZENA Beta-2-GPI IgM Ab (< OR = 20) [facility] Heparin Dep Plt Ab OD (0.000-1.0) U/mL Hep-Induced Plt Ab Trisha (Negative) Anti-Cardiolipin IgG Ab (0-14) GPL U/mL Anti-Cardiolipin IgA Ab (0-11) APL U/mL Anti-Cardiolipin IgM Ab (0-12) MPL U/mL Blood Type Antibody Screen MTS Gel Crossmatch 02/22/18 02/22/18 02/22/18 Range/Units 05:59 05:59 08:08 WBC (4.0-11.0) th/mm3 RBC (4.00-5.30) mil/mm3 Hgb (11.6-15.3) gm/dL Hct (35.0-46.0) % MCV (80.0-100.0) fL MCH (27.0-34.0) pg MCHC (32.0-36.0) % RDW (11.6-17.2) % Plt Count (150-450) th/mm3 MPV (7.0-11.0) fL Prelim Diff (Auto) Neut % (Auto) (16.0-70.0) % Lymph % (Auto) (9.0-44.0) % [place] % (Auto) (0.0-8.0) % Eos % (Auto) (0.0-4.0) % Baso % (Auto) (0.0-2.0) % Neut # (Auto) (1.8-7.7) th/mm3 Lymph # (Auto) (1.0-4.8) th/mm3 [place] # (Auto) (0.0-0.9) th/mm3 Eos # (Auto) (0.0-0.4) th/mm3 Baso # (Auto) (0.0-0.2) th/mm3 WBC Differential Diff Scan Seg Neuts % (Manual) (16-70) % Band Neuts % (Manual) (0-6) % Lymphocytes % (Manual) (9-44) % Monocytes % (Manual) (0-8) % Eosinophils % (Manual) (0-4) % Basophils % (Manual) (0-2) % Metamyelocytes % (Man) (0-1) % Blast Cells % (Manual) (0-0) % Abs Neuts (Manual) (1.8-7.7) th/mm3 Differential Comment Platelet Estimate (Normal) Platelet Morphology (Normal) Smear Path Review Retic Count 1.1 (0.4-3.0) % Absolute Retic 44.0 (20.0-150.0) mil/L PT (9.8-11.6) sec INR Ratio APTT (23.4-31.7) sec Thrombin Time ND Fibrinogen (227-377) mg/dL D-Dimer Quant (PE/DVT) (0.00-0.50) mg/L FEU Lupus Anticoagulant (NOT DETECTED) Lupus Anticoag aPTT 36.0 (< OR = 40) seconds Dil Sebastián Viper Venom 42.0 (< OR = 45) seconds dRVVT Confirm Interp ND dRVVT Mix Pat/Norm 1:1 ND dRVVT Mix Interpret ND Hexagonal Phase Confirm ND Sodium (136-145) meq/L Potassium (3.5-5.1) meq/L Chloride (98-107) meq/L Carbon Dioxide (21.0-32.0) meq/L Anion Gap (5-15) meq/L BUN (7-18) mg/dL Creatinine (0.50-1.00) mg/dL Estimated GFR (>89) mL/min POC Glucose 227 H (68-110) mg/dl Random Glucose (74-106) mg/dL Hemoglobin A1c (4.3-6.0) % Calcium (8.5-10.1) mg/dL Total Bilirubin (0.2-1.0) mg/dL AST (15-37) U/L ALT (10-53) U/L Alkaline Phosphatase (45-117) U/L Lactate Dehydrogenase (84-246) U/L Total Creatine Kinase (26-192) U/L CK-MB (CK-2) (0.5-3.6) ng/mL CK-MB (CK-2) % (0.0-4.0) % Troponin I (0.02-0.05) ng/mL Total Protein (6.4-8.2) g/dL Albumin (3.4-5.0) g/dL Triglycerides (42-150) mg/dL Cholesterol (120-200) mg/dL LDL Cholesterol, Calc (0-99) mg/dL HDL Cholesterol (40.0-60.0) mg/dL Cholesterol/HDL Ratio Ratio Lipase (73-393) U/L Vitamin B12 (193-986) pg/mL Folate (3.1-17.5) ng/mL Beta HCG, Quant (0-5) mIU/mL Urine Color (Yellw/Straw) Urine Clarity (Clear) Urine pH (5.0-8.5) Ur Specific [place] (1.002-1.035) Urine Protein (Neg-Trace) mg/dL Urine Glucose (UA) (Negative) mg/dL Urine Ketones (Negative) mg/dL Urine Occult Blood (Negative) Urine Nitrate (Negative) Urine Bilirubin (Negative) Urine Urobilinogen (Less than 2) mg/dL Ur Leukocyte Esterase (Negative) Urine WBC (0-5) /hpf Ur Squamous Epith Cells (0-5) /hpf Micro UA Comment Ur Microscopic Review Urine Culture Comments Nasal Screen MRSA (PCR) (Negative) Beta-2-GPI IgG Ab Less than 9.0 (< OR = 20) [facility] Beta-2-GPI IgA Ab Less than 9.0 (< OR = 20) ZENA Beta-2-GPI IgM Ab Less than 9.0 (< OR = 20) [facility] Heparin Dep Plt Ab OD (0.000-1.0) U/mL Hep-Induced Plt Ab Trisha (Negative) Anti-Cardiolipin IgG Ab Less than 14.0 (0-14) GPL U/mL Anti-Cardiolipin IgA Ab Less than 11.0 (0-11) APL U/mL Anti-Cardiolipin IgM Ab Less than 12.0 (0-12) MPL U/mL Blood Type Antibody Screen MTS Gel Crossmatch 02/22/18 02/22/18 02/22/18 Range/Units 11:37 16:39 21:41 WBC (4.0-11.0) th/mm3 RBC (4.00-5.30) mil/mm3 Hgb (11.6-15.3) gm/dL Hct (35.0-46.0) % MCV (80.0-100.0) fL MCH (27.0-34.0) pg MCHC (32.0-36.0) % RDW (11.6-17.2) % Plt Count (150-450) th/mm3 MPV (7.0-11.0) fL Prelim Diff (Auto) Neut % (Auto) (16.0-70.0) % Lymph % (Auto) (9.0-44.0) % [place] % (Auto) (0.0-8.0) % Eos % (Auto) (0.0-4.0) % Baso % (Auto) (0.0-2.0) % Neut # (Auto) (1.8-7.7) th/mm3 Lymph # (Auto) (1.0-4.8) th/mm3 [place] # (Auto) (0.0-0.9) th/mm3 Eos # (Auto) (0.0-0.4) th/mm3 Baso # (Auto) (0.0-0.2) th/mm3 WBC Differential Diff Scan Seg Neuts % (Manual) (16-70) % Band Neuts % (Manual) (0-6) % Lymphocytes % (Manual) (9-44) % Monocytes % (Manual) (0-8) % Eosinophils % (Manual) (0-4) % Basophils % (Manual) (0-2) % Metamyelocytes % (Man) (0-1) % Blast Cells % (Manual) (0-0) % Abs Neuts (Manual) (1.8-7.7) th/mm3 Differential Comment Platelet Estimate (Normal) Platelet Morphology (Normal) Smear Path Review Retic Count (0.4-3.0) % Absolute Retic (20.0-150.0) mil/L PT (9.8-11.6) sec INR Ratio APTT (23.4-31.7) sec Thrombin Time Fibrinogen (227-377) mg/dL D-Dimer Quant (PE/DVT) (0.00-0.50) mg/L FEU Lupus Anticoagulant (NOT DETECTED) Lupus Anticoag aPTT (< OR = 40) seconds Dil Sebastián Viper Venom (< OR = 45) seconds dRVVT Confirm Interp dRVVT Mix Pat/Norm 1:1 dRVVT Mix Interpret Hexagonal Phase Confirm Sodium (136-145) meq/L Potassium (3.5-5.1) meq/L Chloride (98-107) meq/L Carbon Dioxide (21.0-32.0) meq/L Anion Gap (5-15) meq/L BUN (7-18) mg/dL Creatinine (0.50-1.00) mg/dL Estimated GFR (>89) mL/min POC Glucose 226 H 207 H 191 H (68-110) mg/dl Random Glucose (74-106) mg/dL Hemoglobin A1c (4.3-6.0) % Calcium (8.5-10.1) mg/dL Total Bilirubin (0.2-1.0) mg/dL AST (15-37) U/L ALT (10-53) U/L Alkaline Phosphatase (45-117) U/L Lactate Dehydrogenase (84-246) U/L Total Creatine Kinase (26-192) U/L CK-MB (CK-2) (0.5-3.6) ng/mL CK-MB (CK-2) % (0.0-4.0) % Troponin I (0.02-0.05) ng/mL Total Protein (6.4-8.2) g/dL Albumin (3.4-5.0) g/dL Triglycerides (42-150) mg/dL Cholesterol (120-200) mg/dL LDL Cholesterol, Calc (0-99) mg/dL HDL Cholesterol (40.0-60.0) mg/dL Cholesterol/HDL Ratio Ratio Lipase (73-393) U/L Vitamin B12 (193-986) pg/mL Folate (3.1-17.5) ng/mL Beta HCG, Quant (0-5) mIU/mL Urine Color (Yellw/Straw) Urine Clarity (Clear) Urine pH (5.0-8.5) Ur Specific [place] (1.002-1.035) Urine Protein (Neg-Trace) mg/dL Urine Glucose (UA) (Negative) mg/dL Urine Ketones (Negative) mg/dL Urine Occult Blood (Negative) Urine Nitrate (Negative) Urine Bilirubin (Negative) Urine Urobilinogen (Less than 2) mg/dL Ur Leukocyte Esterase (Negative) Urine WBC (0-5) /hpf Ur Squamous Epith Cells (0-5) /hpf Micro UA Comment Ur Microscopic Review Urine Culture Comments Nasal Screen MRSA (PCR) (Negative) Beta-2-GPI IgG Ab (< OR = 20) [facility] Beta-2-GPI IgA Ab (< OR = 20) ZENA Beta-2-GPI IgM Ab (< OR = 20) [facility] Heparin Dep Plt Ab OD (0.000-1.0) U/mL Hep-Induced Plt Ab Trisha (Negative) Anti-Cardiolipin IgG Ab (0-14) GPL U/mL Anti-Cardiolipin IgA Ab (0-11) APL U/mL Anti-Cardiolipin IgM Ab (0-12) MPL U/mL Blood Type Antibody Screen MTS Gel Crossmatch 02/23/18 02/23/18 02/23/18 Range/Units 07:29 08:26 11:30 WBC 5.0 (4.0-11.0) th/mm3 RBC 4.09 (4.00-5.30) mil/mm3 Hgb 14.5 (11.6-15.3) gm/dL Hct 42.4 (35.0-46.0) % MCV 103.6 H (80.0-100.0) fL MCH 35.5 H (27.0-34.0) pg MCHC 34.2 (32.0-36.0) % RDW 14.1 (11.6-17.2) % Plt Count 85 L (150-450) th/mm3 MPV 10.4 (7.0-11.0) fL Prelim Diff (Auto) Neut % (Auto) (16.0-70.0) % Lymph % (Auto) (9.0-44.0) % [place] % (Auto) (0.0-8.0) % Eos % (Auto) (0.0-4.0) % Baso % (Auto) (0.0-2.0) % Neut # (Auto) (1.8-7.7) th/mm3 Lymph # (Auto) (1.0-4.8) th/mm3 [place] # (Auto) (0.0-0.9) th/mm3 Eos # (Auto) (0.0-0.4) th/mm3 Baso # (Auto) (0.0-0.2) th/mm3 WBC Differential Diff Scan Seg Neuts % (Manual) (16-70) % Band Neuts % (Manual) (0-6) % Lymphocytes % (Manual) (9-44) % Monocytes % (Manual) (0-8) % Eosinophils % (Manual) (0-4) % Basophils % (Manual) (0-2) % Metamyelocytes % (Man) (0-1) % Blast Cells % (Manual) (0-0) % Abs Neuts (Manual) (1.8-7.7) th/mm3 Differential Comment Platelet Estimate (Normal) Platelet Morphology (Normal) Smear Path Review Retic Count (0.4-3.0) % Absolute Retic (20.0-150.0) mil/L PT (9.8-11.6) sec INR Ratio APTT (23.4-31.7) sec Thrombin Time Fibrinogen (227-377) mg/dL D-Dimer Quant (PE/DVT) (0.00-0.50) mg/L FEU Lupus Anticoagulant (NOT DETECTED) Lupus Anticoag aPTT (< OR = 40) seconds Dil Sebastián Viper Venom (< OR = 45) seconds dRVVT Confirm Interp dRVVT Mix Pat/Norm 1:1 dRVVT Mix Interpret Hexagonal Phase Confirm Sodium (136-145) meq/L Potassium (3.5-5.1) meq/L Chloride (98-107) meq/L Carbon Dioxide (21.0-32.0) meq/L Anion Gap (5-15) meq/L BUN (7-18) mg/dL Creatinine (0.50-1.00) mg/dL Estimated GFR (>89) mL/min POC Glucose 206 H 276 H (68-110) mg/dl Random Glucose (74-106) mg/dL Hemoglobin A1c (4.3-6.0) % Calcium (8.5-10.1) mg/dL Total Bilirubin (0.2-1.0) mg/dL AST (15-37) U/L ALT (10-53) U/L Alkaline Phosphatase (45-117) U/L Lactate Dehydrogenase (84-246) U/L Total Creatine Kinase (26-192) U/L CK-MB (CK-2) (0.5-3.6) ng/mL CK-MB (CK-2) % (0.0-4.0) % Troponin I (0.02-0.05) ng/mL Total Protein (6.4-8.2) g/dL Albumin (3.4-5.0) g/dL Triglycerides (42-150) mg/dL Cholesterol (120-200) mg/dL LDL Cholesterol, Calc (0-99) mg/dL HDL Cholesterol (40.0-60.0) mg/dL Cholesterol/HDL Ratio Ratio Lipase (73-393) U/L Vitamin B12 (193-986) pg/mL Folate (3.1-17.5) ng/mL Beta HCG, Quant (0-5) mIU/mL Urine Color (Yellw/Straw) Urine Clarity (Clear) Urine pH (5.0-8.5) Ur Specific [place] (1.002-1.035) Urine Protein (Neg-Trace) mg/dL Urine Glucose (UA) (Negative) mg/dL Urine Ketones (Negative) mg/dL Urine Occult Blood (Negative) Urine Nitrate (Negative) Urine Bilirubin (Negative) Urine Urobilinogen (Less than 2) mg/dL Ur Leukocyte Esterase (Negative) Urine WBC (0-5) /hpf Ur Squamous Epith Cells (0-5) /hpf Micro UA Comment Ur Microscopic Review Urine Culture Comments Nasal Screen MRSA (PCR) (Negative) Beta-2-GPI IgG Ab (< OR = 20) [facility] Beta-2-GPI IgA Ab (< OR = 20) ZENA Beta-2-GPI IgM Ab (< OR = 20) [facility] Heparin Dep Plt Ab OD (0.000-1.0) U/mL Hep-Induced Plt Ab Trisha (Negative) Anti-Cardiolipin IgG Ab (0-14) GPL U/mL Anti-Cardiolipin IgA Ab (0-11) APL U/mL Anti-Cardiolipin IgM Ab (0-12) MPL U/mL Blood Type Antibody Screen MTS Gel Crossmatch 02/23/18 02/23/18 02/24/18 Range/Units 17:02 20:27 03:36 WBC 4.8 (4.0-11.0) th/mm3 RBC 4.09 (4.00-5.30) mil/mm3 Hgb 14.1 (11.6-15.3) gm/dL Hct 42.2 (35.0-46.0) % MCV 103.1 H (80.0-100.0) fL MCH 34.4 H (27.0-34.0) pg MCHC 33.4 (32.0-36.0) % RDW 13.9 (11.6-17.2) % Plt Count 92 L (150-450) th/mm3 MPV 10.6 (7.0-11.0) fL Prelim Diff (Auto) Neut % (Auto) (16.0-70.0) % Lymph % (Auto) (9.0-44.0) % [place] % (Auto) (0.0-8.0) % Eos % (Auto) (0.0-4.0) % Baso % (Auto) (0.0-2.0) % Neut # (Auto) (1.8-7.7) th/mm3 Lymph # (Auto) (1.0-4.8) th/mm3 [place] # (Auto) (0.0-0.9) th/mm3 Eos # (Auto) (0.0-0.4) th/mm3 Baso # (Auto) (0.0-0.2) th/mm3 WBC Differential Diff Scan Seg Neuts % (Manual) (16-70) % Band Neuts % (Manual) (0-6) % Lymphocytes % (Manual) (9-44) % Monocytes % (Manual) (0-8) % Eosinophils % (Manual) (0-4) % Basophils % (Manual) (0-2) % Metamyelocytes % (Man) (0-1) % Blast Cells % (Manual) (0-0) % Abs Neuts (Manual) (1.8-7.7) th/mm3 Differential Comment Platelet Estimate (Normal) Platelet Morphology (Normal) Smear Path Review Retic Count (0.4-3.0) % Absolute Retic (20.0-150.0) mil/L PT (9.8-11.6) sec INR Ratio APTT (23.4-31.7) sec Thrombin Time Fibrinogen (227-377) mg/dL D-Dimer Quant (PE/DVT) (0.00-0.50) mg/L FEU Lupus Anticoagulant (NOT DETECTED) Lupus Anticoag aPTT (< OR = 40) seconds Dil Sebastián Viper Venom (< OR = 45) seconds dRVVT Confirm Interp dRVVT Mix Pat/Norm 1:1 dRVVT Mix Interpret Hexagonal Phase Confirm Sodium (136-145) meq/L Potassium (3.5-5.1) meq/L Chloride (98-107) meq/L Carbon Dioxide (21.0-32.0) meq/L Anion Gap (5-15) meq/L BUN (7-18) mg/dL Creatinine (0.50-1.00) mg/dL Estimated GFR (>89) mL/min POC Glucose 180 H 174 H (68-110) mg/dl Random Glucose (74-106) mg/dL Hemoglobin A1c (4.3-6.0) % Calcium (8.5-10.1) mg/dL Total Bilirubin (0.2-1.0) mg/dL AST (15-37) U/L ALT (10-53) U/L Alkaline Phosphatase (45-117) U/L Lactate Dehydrogenase (84-246) U/L Total Creatine Kinase (26-192) U/L CK-MB (CK-2) (0.5-3.6) ng/mL CK-MB (CK-2) % (0.0-4.0) % Troponin I (0.02-0.05) ng/mL Total Protein (6.4-8.2) g/dL Albumin (3.4-5.0) g/dL Triglycerides (42-150) mg/dL Cholesterol (120-200) mg/dL LDL Cholesterol, Calc (0-99) mg/dL HDL Cholesterol (40.0-60.0) mg/dL Cholesterol/HDL Ratio Ratio Lipase (73-393) U/L Vitamin B12 (193-986) pg/mL Folate (3.1-17.5) ng/mL Beta HCG, Quant (0-5) mIU/mL Urine Color (Yellw/Straw) Urine Clarity (Clear) Urine pH (5.0-8.5) Ur Specific [place] (1.002-1.035) Urine Protein (Neg-Trace) mg/dL Urine Glucose (UA) (Negative) mg/dL Urine Ketones (Negative) mg/dL Urine Occult Blood (Negative) Urine Nitrate (Negative) Urine Bilirubin (Negative) Urine Urobilinogen (Less than 2) mg/dL Ur Leukocyte Esterase (Negative) Urine WBC (0-5) /hpf Ur Squamous Epith Cells (0-5) /hpf Micro UA Comment Ur Microscopic Review Urine Culture Comments Nasal Screen MRSA (PCR) (Negative) Beta-2-GPI IgG Ab (< OR = 20) [facility] Beta-2-GPI IgA Ab (< OR = 20) ZENA Beta-2-GPI IgM Ab (< OR = 20) [facility] Heparin Dep Plt Ab OD (0.000-1.0) U/mL Hep-Induced Plt Ab Trisha (Negative) Anti-Cardiolipin IgG Ab (0-14) GPL U/mL Anti-Cardiolipin IgA Ab (0-11) APL U/mL Anti-Cardiolipin IgM Ab (0-12) MPL U/mL Blood Type Antibody Screen MTS Gel Crossmatch 02/24/18 02/24/18 02/24/18 Range/Units 03:36 08:41 12:42 WBC (4.0-11.0) th/mm3 RBC (4.00-5.30) mil/mm3 Hgb (11.6-15.3) gm/dL Hct (35.0-46.0) % MCV (80.0-100.0) fL MCH (27.0-34.0) pg MCHC (32.0-36.0) % RDW (11.6-17.2) % Plt Count (150-450) th/mm3 MPV (7.0-11.0) fL Prelim Diff (Auto) Neut % (Auto) (16.0-70.0) % Lymph % (Auto) (9.0-44.0) % [place] % (Auto) (0.0-8.0) % Eos % (Auto) (0.0-4.0) % Baso % (Auto) (0.0-2.0) % Neut # (Auto) (1.8-7.7) th/mm3 Lymph # (Auto) (1.0-4.8) th/mm3 [place] # (Auto) (0.0-0.9) th/mm3 Eos # (Auto) (0.0-0.4) th/mm3 Baso # (Auto) (0.0-0.2) th/mm3 WBC Differential Diff Scan Seg Neuts % (Manual) (16-70) % Band Neuts % (Manual) (0-6) % Lymphocytes % (Manual) (9-44) % Monocytes % (Manual) (0-8) % Eosinophils % (Manual) (0-4) % Basophils % (Manual) (0-2) % Metamyelocytes % (Man) (0-1) % Blast Cells % (Manual) (0-0) % Abs Neuts (Manual) (1.8-7.7) th/mm3 Differential Comment Platelet Estimate (Normal) Platelet Morphology (Normal) Smear Path Review Retic Count (0.4-3.0) % Absolute Retic (20.0-150.0) mil/L PT (9.8-11.6) sec INR Ratio APTT (23.4-31.7) sec Thrombin Time Fibrinogen (227-377) mg/dL D-Dimer Quant (PE/DVT) (0.00-0.50) mg/L FEU Lupus Anticoagulant (NOT DETECTED) Lupus Anticoag aPTT (< OR = 40) seconds Dil Sebastián Viper Venom (< OR = 45) seconds dRVVT Confirm Interp dRVVT Mix Pat/Norm 1:1 dRVVT Mix Interpret Hexagonal Phase Confirm Sodium (136-145) meq/L Potassium (3.5-5.1) meq/L Chloride (98-107) meq/L Carbon Dioxide (21.0-32.0) meq/L Anion Gap (5-15) meq/L BUN (7-18) mg/dL Creatinine (0.50-1.00) mg/dL Estimated GFR (>89) mL/min POC Glucose 143 H 211 H (68-110) mg/dl Random Glucose (74-106) mg/dL Hemoglobin A1c (4.3-6.0) % Calcium (8.5-10.1) mg/dL Total Bilirubin (0.2-1.0) mg/dL AST (15-37) U/L ALT (10-53) U/L Alkaline Phosphatase (45-117) U/L Lactate Dehydrogenase (84-246) U/L Total Creatine Kinase (26-192) U/L CK-MB (CK-2) (0.5-3.6) ng/mL CK-MB (CK-2) % (0.0-4.0) % Troponin I (0.02-0.05) ng/mL Total Protein (6.4-8.2) g/dL Albumin (3.4-5.0) g/dL Triglycerides 175 H (42-150) mg/dL Cholesterol 209 H (120-200) mg/dL LDL Cholesterol, Calc 145 H (0-99) mg/dL HDL Cholesterol 28.8 L (40.0-60.0) mg/dL Cholesterol/HDL Ratio 7.25 Ratio Lipase (73-393) U/L Vitamin B12 (193-986) pg/mL Folate (3.1-17.5) ng/mL Beta HCG, Quant (0-5) mIU/mL Urine Color (Yellw/Straw) Urine Clarity (Clear) Urine pH (5.0-8.5) Ur Specific [place] (1.002-1.035) Urine Protein (Neg-Trace) mg/dL Urine Glucose (UA) (Negative) mg/dL Urine Ketones (Negative) mg/dL Urine Occult Blood (Negative) Urine Nitrate (Negative) Urine Bilirubin (Negative) Urine Urobilinogen (Less than 2) mg/dL Ur Leukocyte Esterase (Negative) Urine WBC (0-5) /hpf Ur Squamous Epith Cells (0-5) /hpf Micro UA Comment Ur Microscopic Review Urine Culture Comments Nasal Screen MRSA (PCR) (Negative) Beta-2-GPI IgG Ab (< OR = 20) [facility] Beta-2-GPI IgA Ab (< OR = 20) ZENA Beta-2-GPI IgM Ab (< OR = 20) [facility] Heparin Dep Plt Ab OD (0.000-1.0) U/mL Hep-Induced Plt Ab Trisha (Negative) Anti-Cardiolipin IgG Ab (0-14) GPL U/mL Anti-Cardiolipin IgA Ab (0-11) APL U/mL Anti-Cardiolipin IgM Ab (0-12) MPL U/mL Blood Type Antibody Screen MTS Gel Crossmatch 02/24/18 02/24/18 02/25/18 Range/Units 16:46 20:17 04:55 WBC (4.0-11.0) th/mm3 RBC (4.00-5.30) mil/mm3 Hgb (11.6-15.3) gm/dL Hct (35.0-46.0) % MCV (80.0-100.0) fL MCH (27.0-34.0) pg MCHC (32.0-36.0) % RDW (11.6-17.2) % Plt Count (150-450) th/mm3 MPV (7.0-11.0) fL Prelim Diff (Auto) Neut % (Auto) (16.0-70.0) % Lymph % (Auto) (9.0-44.0) % [place] % (Auto) (0.0-8.0) % Eos % (Auto) (0.0-4.0) % Baso % (Auto) (0.0-2.0) % Neut # (Auto) (1.8-7.7) th/mm3 Lymph # (Auto) (1.0-4.8) th/mm3 [place] # (Auto) (0.0-0.9) th/mm3 Eos # (Auto) (0.0-0.4) th/mm3 Baso # (Auto) (0.0-0.2) th/mm3 WBC Differential Diff Scan Seg Neuts % (Manual) (16-70) % Band Neuts % (Manual) (0-6) % Lymphocytes % (Manual) (9-44) % Monocytes % (Manual) (0-8) % Eosinophils % (Manual) (0-4) % Basophils % (Manual) (0-2) % Metamyelocytes % (Man) (0-1) % Blast Cells % (Manual) (0-0) % Abs Neuts (Manual) (1.8-7.7) th/mm3 Differential Comment Platelet Estimate (Normal) Platelet Morphology (Normal) Smear Path Review Retic Count (0.4-3.0) % Absolute Retic (20.0-150.0) mil/L PT (9.8-11.6) sec INR Ratio APTT (23.4-31.7) sec Thrombin Time Fibrinogen (227-377) mg/dL D-Dimer Quant (PE/DVT) (0.00-0.50) mg/L FEU Lupus Anticoagulant (NOT DETECTED) Lupus Anticoag aPTT (< OR = 40) seconds Dil Sebastián Viper Venom (< OR = 45) seconds dRVVT Confirm Interp dRVVT Mix Pat/Norm 1:1 dRVVT Mix Interpret Hexagonal Phase Confirm Sodium (136-145) meq/L Potassium (3.5-5.1) meq/L Chloride (98-107) meq/L Carbon Dioxide (21.0-32.0) meq/L Anion Gap (5-15) meq/L BUN (7-18) mg/dL Creatinine (0.50-1.00) mg/dL Estimated GFR (>89) mL/min POC Glucose 178 H 250 H (68-110) mg/dl Random Glucose (74-106) mg/dL Hemoglobin A1c (4.3-6.0) % Calcium (8.5-10.1) mg/dL Total Bilirubin (0.2-1.0) mg/dL AST (15-37) U/L ALT (10-53) U/L Alkaline Phosphatase (45-117) U/L Lactate Dehydrogenase (84-246) U/L Total Creatine Kinase (26-192) U/L CK-MB (CK-2) (0.5-3.6) ng/mL CK-MB (CK-2) % (0.0-4.0) % Troponin I (0.02-0.05) ng/mL Total Protein (6.4-8.2) g/dL Albumin (3.4-5.0) g/dL Triglycerides (42-150) mg/dL Cholesterol (120-200) mg/dL LDL Cholesterol, Calc (0-99) mg/dL HDL Cholesterol (40.0-60.0) mg/dL Cholesterol/HDL Ratio Ratio Lipase (73-393) U/L Vitamin B12 (193-986) pg/mL Folate (3.1-17.5) ng/mL Beta HCG, Quant (0-5) mIU/mL Urine Color (Yellw/Straw) Urine Clarity (Clear) Urine pH (5.0-8.5) Ur Specific [place] (1.002-1.035) Urine Protein (Neg-Trace) mg/dL Urine Glucose (UA) (Negative) mg/dL Urine Ketones (Negative) mg/dL Urine Occult Blood (Negative) Urine Nitrate (Negative) Urine Bilirubin (Negative) Urine Urobilinogen (Less than 2) mg/dL Ur Leukocyte Esterase (Negative) Urine WBC (0-5) /hpf Ur Squamous Epith Cells (0-5) /hpf Micro UA Comment Ur Microscopic Review Urine Culture Comments Nasal Screen MRSA (PCR) (Negative) Beta-2-GPI IgG Ab (< OR = 20) SGU Beta-2-GPI IgA Ab (< OR = 20) ZENA Beta-2-GPI IgM Ab (< OR = 20) [facility] Heparin Dep Plt Ab OD (0.000-1.0) U/mL Hep-Induced Plt Ab Trisha (Negative) Anti-Cardiolipin IgG Ab (0-14) GPL U/mL Anti-Cardiolipin IgA Ab (0-11) APL U/mL Anti-Cardiolipin IgM Ab (0-12) MPL U/mL Blood Type AB Positive Antibody Screen Negative MTS Gel Crossmatch See Detail 02/25/18 02/25/18 02/25/18 Range/Units 04:55 04:55 04:55 WBC 4.5 (4.0-11.0) th/mm3 RBC 3.90 L (4.00-5.30) mil/mm3 Hgb 14.0 (11.6-15.3) gm/dL Hct 39.4 (35.0-46.0) % MCV 101.1 H (80.0-100.0) fL MCH 35.8 H (27.0-34.0) pg MCHC 35.4 (32.0-36.0) % RDW 14.1 (11.6-17.2) % Plt Count 98 L (150-450) th/mm3 MPV 10.7 (7.0-11.0) fL Prelim Diff (Auto) Slide review pending Neut % (Auto) 53.9 (16.0-70.0) % Lymph % (Auto) 23.5 (9.0-44.0) % [place] % (Auto) 16.0 H (0.0-8.0) % Eos % (Auto) 5.8 H (0.0-4.0) % Baso % (Auto) 0.8 (0.0-2.0) % Neut # (Auto) 2.4 (1.8-7.7) th/mm3 Lymph # (Auto) 1.1 (1.0-4.8) th/mm3 [place] # (Auto) 0.7 (0.0-0.9) th/mm3 Eos # (Auto) 0.3 (0.0-0.4) th/mm3 Baso # (Auto) 0.0 (0.0-0.2) th/mm3 WBC Differential . Diff Scan Auto diff confirmed Seg Neuts % (Manual) (16-70) % Band Neuts % (Manual) (0-6) % Lymphocytes % (Manual) (9-44) % Monocytes % (Manual) (0-8) % Eosinophils % (Manual) (0-4) % Basophils % (Manual) (0-2) % Metamyelocytes % (Man) (0-1) % Blast Cells % (Manual) (0-0) % Abs Neuts (Manual) (1.8-7.7) th/mm3 Differential Comment . Platelet Estimate Low L (Normal) Platelet Morphology Enlarged H (Normal) Smear Path Review Retic Count (0.4-3.0) % Absolute Retic (20.0-150.0) mil/L PT 12.0 H (9.8-11.6) sec INR 1.2 Ratio APTT (23.4-31.7) sec Thrombin Time Fibrinogen (227-377) mg/dL D-Dimer Quant (PE/DVT) (0.00-0.50) mg/L FEU Lupus Anticoagulant (NOT DETECTED) Lupus Anticoag aPTT (< OR = 40) seconds Dil Sebastián Viper Venom (< OR = 45) seconds dRVVT Confirm Interp dRVVT Mix Pat/Norm 1:1 dRVVT Mix Interpret Hexagonal Phase Confirm Sodium 135 L (136-145) meq/L Potassium 4.0 (3.5-5.1) meq/L Chloride 101 (98-107) meq/L Carbon Dioxide 26.1 (21.0-32.0) meq/L Anion Gap 8 (5-15) meq/L BUN 12 (7-18) mg/dL Creatinine 0.61 (0.50-1.00) mg/dL Estimated GFR Greater than 89 (>89) mL/min POC Glucose (68-110) mg/dl Random Glucose 211 H (74-106) mg/dL Hemoglobin A1c (4.3-6.0) % Calcium 8.7 (8.5-10.1) mg/dL Total Bilirubin 0.5 (0.2-1.0) mg/dL AST 59 H (15-37) U/L ALT 65 H (10-53) U/L Alkaline Phosphatase 106 (45-117) U/L Lactate Dehydrogenase (84-246) U/L Total Creatine Kinase (26-192) U/L CK-MB (CK-2) (0.5-3.6) ng/mL CK-MB (CK-2) % (0.0-4.0) % Troponin I (0.02-0.05) ng/mL Total Protein 7.8 (6.4-8.2) g/dL Albumin 3.4 (3.4-5.0) g/dL Triglycerides (42-150) mg/dL Cholesterol (120-200) mg/dL LDL Cholesterol, Calc (0-99) mg/dL HDL Cholesterol (40.0-60.0) mg/dL Cholesterol/HDL Ratio Ratio Lipase (73-393) U/L Vitamin B12 (193-986) pg/mL Folate (3.1-17.5) ng/mL Beta HCG, Quant (0-5) mIU/mL Urine Color (Yellw/Straw) Urine Clarity (Clear) Urine pH (5.0-8.5) Ur Specific [place] (1.002-1.035) Urine Protein (Neg-Trace) mg/dL Urine Glucose (UA) (Negative) mg/dL Urine Ketones (Negative) mg/dL Urine Occult Blood (Negative) Urine Nitrate (Negative) Urine Bilirubin (Negative) Urine Urobilinogen (Less than 2) mg/dL Ur Leukocyte Esterase (Negative) Urine WBC (0-5) /hpf Ur Squamous Epith Cells (0-5) /hpf Micro UA Comment Ur Microscopic Review Urine Culture Comments Nasal Screen MRSA (PCR) (Negative) Beta-2-GPI IgG Ab (< OR = 20) SGU Beta-2-GPI IgA Ab (< OR = 20) ZENA Beta-2-GPI IgM Ab (< OR = 20) [facility] Heparin Dep Plt Ab OD (0.000-1.0) U/mL Hep-Induced Plt Ab Trisha (Negative) Anti-Cardiolipin IgG Ab (0-14) GPL U/mL Anti-Cardiolipin IgA Ab (0-11) APL U/mL Anti-Cardiolipin IgM Ab (0-12) MPL U/mL Blood Type Antibody Screen MTS Gel Crossmatch Imaging Data Radiologist's impression: Chest X-Ray 02/20/18 07:28 CONCLUSION: Negative examination. Gallbladder Ultrasound 02/20/18 11:54 CONCLUSION: Mild probable hepatic steatosis. Myocardial Perfusion Scan Nuc Med 02/20/18 14:59 CONCLUSION: Moderate sized moderate severity reversible anterior wall and apical perfusion abnormality. Carotid Doppler Study 02/21/18 13:57 CONCLUSION: 1. Right Internal Carotid Artery: Mild plaquing with no evidence of stenosis. 2. Left Internal Carotid Artery: Mild plaquing with no evidence of stenosis. Lower Extremity Ultrasound 02/21/18 13:57 CONCLUSION: 1. Venous mapping study as described. Venous Doppler Study 02/21/18 13:57 CONCLUSION: The study is negative for bilateral lower extremity deep venous thrombosis. Thoracic Aorta CT 02/22/18 00:00 CONCLUSION: Unremarkable CTA evaluation. Specifically no evidence of subclavian stenosis as questioned. Spleen Ultrasound 02/22/18 08:00 CONCLUSION: 1. The examination demonstrates normal echotexture with the spleen length of 12.8 cm. This is at the upper limits of normal in size. ECG Data EKG Prior to Arrival: No Attestation: I personally reviewed and interpreted this ECG as follows: Prior ECG tracings: not available for review Interpretation: Normal sinus rhythm, 79 bpm, normal intervals, normal as of any acute ST elevation TN pattern Discharge Plan Discharge Disposition Patient Disposition: 30 Still Patient Discharge Condition Condition: Stable Discharge Details Diagnosis: Chest pain, rule out acute myocardial infarction Physicians Team ED Provider: Roshan Watson Primary Care Provider: UNKNOWN, Attending Provider: Edy Mckeon Other Providers: Zay Bar ; Ashlie Velásquez ; Umm Alva Status ED Status: Left Department Discharge Information Discharge Date/Time: 02/20/18 14:05
[2018-02-20] MEDS ORDERED: Sod Chloride 0.9% Inj 1,000 ML IV.CONT SCH (10:30)
[2018-02-20] MEDS ORDERED: Dextrose 50% in Water 50 ML Vial IV.PUSH PRN ×2 (12:08→21:01)
[2018-02-20] MEDS: Insulin NovoLIN Regular Correctional Sugar Inj SQ SCH ×3 (12:15→21:14)
--- NOTE | 2018-02-20 12:25 | P.HPCA ---
History of Present Illness Primary Care Physician: UNKNOWN Chief Complaint: Chest pain History of Present Illness: This is a 48-year-old female with history of hypertension, diabetes, and family history of heart disease that presents to ED via private vehicle with complaint of chest discomfort. Patient states that she just has not been feeling well last approximately 3 weeks. States she has been vomiting quite often. States that it has been nonbloody and nonbilious. Out of the 3 weeks she has probably had 9 or 10 days of vomiting multiple times each of those days. When this occurs she may get but is not guaranteed to get a discomfort in the center/ right side of her chest radiating to the neck. The discomfort is described as a burning. She has not had the discomfort without episodes of emesis. Usually discomfort will last about 30 minutes. Resolves on its own. She at times becomes short of breath and diaphoretic. She has not taken any medication to help with it. Last night around 2 in the morning she was working with the same burning lasted about 2 hours which is longer than it has been lasting previously. She has found nothing in particular to bring on the emesis. She has had no diarrhea constipation. Denies blood in stools or black or tarry stools. Cannot recall prior cardiac workup. There is family history of heart disease. She states that her brother had stents at age 55. Both parents had MIs at age 52. Patient is diabetic and admits to not having her diabetes under the best control. Her primary care physician is Dr. Piedra. History of hypertension and diabetes. Denies known CAD. Denies hyperlipidemia. Was explained to her that she should be on statin therapy with her history of diabetes unless there is contraindication which she may need to discuss with her physician as she does have elevated LFTs. She also describes history of alcohol abuse. States she is drinking on average 4 triple margaritas per night 5-7 nights a week. Patient is a non-smoker. She drinks on average 4 triple margaritas on evenings 5-7 evenings a week. Denies illicit drug use. She is with a child. She is a schoolteacher. Family history include beginning: Her brother had stents at age 55. Both parents had MIs at age 52. - Diagnosis (1) Chest pain (2) Hypertension (3) Diabetes (4) Elevated LFTs (5) Thrombocytopenia (6) Alcohol abuse Review of Systems General: Patient denies fevers, chills, and recent travel. HEENT: Patient denies headache, sore throat, difficulty swallowing. Cardiovascular: Has the chest discomfort as mentioned above. Denies sensation of heart beating rapidly or irregularly. No syncope. Intermittent diaphoresis. Respiratory: Intermittent shortness of breath. Denies inspirational chest discomfort. Denies coughing wheezing or hemoptysis. GI: Planes of nausea and vomiting. Denies hematemesis. Patient denies diarrhea , constipation, abdominal pain, black, tarry, or bloody stools. Musculoskeletal: Patient denies joint pain or edema. Denies calf pain or edema. Neurovascular: Patient denies numbness, tingling, weakness in extremities. Denies headache. Endocrine: Denies polyuria and polydipsia. Hematologic: Denies easy bruising. Skin: Denies rash or itching. [facility] - History History Provided By: Patient - Medical History Medical History: Medical History (Last Reviewed 02/20/18 @ 09:55 by Roshan Watson) Diabetes HTN (hypertension) Hypercholesterolemia - Surgical History Surgical History: Surgical History (Last Reviewed 02/20/18 @ 09:55 by Roshan Watson) No history of previous surgery - Tobacco History Smoking Status: Never smoker - Alcohol History How Often Do You Have a Drink Containing Alcohol: 4 or more times a week - Substance Use History Substance History: No History of Abuse - Travel History Recent Travel in the [place] Within the Last 8 Weeks: No Recent Travel Out of the Country Within the Last 8 Weeks: No - Immunization History Tetanus Immunization: <5 Years Tetanus Immunization Year if Known: 2013 Medications and Allergies Active Medications: Active Medications Albuterol (Duoneb Neb (Prn)) 1 ampul NEB Q4HR NEB PRN PRN Reason: SHORTNESS OF BREATH/WHEEZING Amitriptyline HCl (Elavil) 10 mg PO HS KAMRYN Amlodipine Besylate (Norvasc) 5 mg PO DAILY KAMRYN Aspirin (Aspirin) 325 mg PO DAILY KAMRYN Dextrose (D50w Vial) 50 ml IV.PUSH UNSCH PRN PRN Reason: PER HYPOGLYCEMIA PROTOCOL Duloxetine HCl (Cymbalta) 30 mg PO DAILY KAMRYN Gabapentin (Neurontin) 600 mg PO HS KAMRYN Glucagon (Glucagon Inj) 1 mg OTHER PRN PRN PRN Reason: for Hypoglycemia Protocol Sodium Chloride (Ns Inj) 1,000 mls @ 125 mls/hr IV.CONT .Q8H KAMRYN Stop: 02/20/18 18:29 Last Admin: 02/20/18 10:49 Dose: 125 mls/hr Insulin Human Regular (Novolin R Correctional Sugar Inj) 0 units SQ ACHS KAMRYN; Protocol Lisinopril (Prinivil) 20 mg PO DAILY [facility] Ondansetron HCl (Zofran Inj) 4 mg IV.PUSH Q6H PRN PRN Reason: NAUSEA Sodium Chloride (Ns Flush) 2 ml IV.FLUSH PRN PRN PRN Reason: FLUSH AFTER USING IV ACCESS Sodium Chloride (Ns Flush) 2 ml IV.FLUSH BID [facility] Allergies Allergy/AdvReac Type Severity Reaction Status Date / Time coconut Allergy Anaphylaxis Verified 02/20/18 09:26 Home Medications Medication Instructions Recorded Confirmed Type amitriptyline 10 mg PO HS 02/20/18 02/20/18 History amlodipine 5 mg PO DAILY 02/20/18 02/20/18 History duloxetine 30 mg PO DAILY 02/20/18 02/20/18 History gabapentin 600 mg PO HS 02/20/18 02/20/18 History glimepiride 4 mg PO BID 02/20/18 02/20/18 History lisinopril 20 mg PO DAILY 02/20/18 02/20/18 History metformin 500 mg PO BID 02/20/18 02/20/18 History Exam Vital signs: Vital Signs 02/20/18 07:19 02/20/18 09:20 02/20/18 09:45 Temperature 98.6 F Pulse Rate 100 H 101 H 77 Respiratory Rate 18 18 18 Blood Pressure 198/102 H 192/91 H 162/85 H Pulse Oximetry 96 98 100 Intake & Output 02/19/18 02/20/18 02/20/18 18:59 06:59 18:59 Weight 76.204 kg Narrative: GENERAL: This is a well-nourished, well-developed patient, in no apparent distress. Patient speaks in clear complete sentences. Patient is pleasant. HEENT: Head is atraumatic and normocephalic. Neck is supple without lymphadenopathy and trachea is midline. No JVD or carotid bruits. CARDIOVASCULAR: Regular rate and rhythm without murmurs, gallops, or rubs. RESPIRATORY: Clear to auscultation. Breath sounds equal bilaterally. No wheezes , rales, or rhonchi. Chest wall is nontender. No use of accessory muscles. GASTROINTESTINAL: There is some mild right upper quadrant tenderness as well as having some comfort epigastric region. Abdomen is nondistended. Abdomen soft. No obvious pulsatile mass or bruit. No CVA tenderness. Strong femoral pulses bilaterally. Normal bowel sounds in all quadrants. MUSCULOSKELETAL: Patient is moving upper and lower extremities freely. No calf tenderness or edema, no Homans sign. Strong pulses in upper and lower extremities. NEUROLOGICAL: Patient is alert and oriented. Cranial nerves 2-12 are grossly intact. No focal deficits and speech is clear. SKIN: No rash and turgor is normal. Results 02/20/18 07:42 02/20/18 07:42 Cardiac Enzymes 02/20/18 Range/Units 07:42 AST 69 H (15-37) U/L Troponin I Less than 0.02 L (0.02-0.05) ng/mL CBC 02/20/18 Range/Units 07:42 WBC 4.0 (4.0-11.0) th/mm3 RBC 4.33 (4.00-5.30) mil/mm3 Hgb 15.4 H (11.6-15.3) gm/dL Hct 45.4 (35.0-46.0) % Plt Count 95 L (150-450) th/mm3 Neut # (Auto) 2.5 (1.8-7.7) th/mm3 Lymph # (Auto) 0.9 L (1.0-4.8) th/mm3 [place] # (Auto) 0.4 (0.0-0.9) th/mm3 Eos # (Auto) 0.1 (0.0-0.4) th/mm3 Baso # (Auto) 0.0 (0.0-0.2) th/mm3 Comprehensive Metabolic Panel 02/20/18 Range/Units 07:42 Sodium 136 (136-145) meq/L Potassium 3.8 (3.5-5.1) meq/L Chloride 99 (98-107) meq/L Carbon Dioxide 29.7 (21.0-32.0) meq/L BUN 9 (7-18) mg/dL Creatinine 0.76 (0.50-1.00) mg/dL Calcium 9.2 (8.5-10.1) mg/dL AST 69 H (15-37) U/L ALT 58 H (10-53) U/L Alkaline Phosphatase 94 (45-117) U/L Total Protein 9.4 H (6.4-8.2) g/dL Albumin 4.2 (3.4-5.0) g/dL Intake and Output 02/19/18 02/20/18 02/20/18 22:59 06:59 14:59 Other: Weight 76.204 kg Patient Weight 02/21/18 06:59 Weight 76.204 kg - Imaging and Cardiology Imaging: Impressions Chest X-Ray 02/20/18 07:28 CONCLUSION: Negative examination. EKG interpretations - EKG EKG shows: sinus rhythm (Initial EKG is sinus rhythm without significant ST segment depressions or elevations.) Caprini VTE Risk Assessment Caprini VTE Risk Assessment: No/Low Risk (score <= 1) Caprini Risk Assessment Model: Point Value = 1 Point Value = 2 Point Value = 3 Point Value = 5 Age 41-60 Minor surgery BMI > 25 kg/m2 Swollen legs Varicose veins or History of unexplained or recurrent spontaneous Oral contraceptives or hormone replacement Sepsis (< 1 month) Serious lung disease, including pneumonia (< 1 month) Abnormal pulmonary function Acute myocardial infarction Congestive heart failure (< 1 month) History of inflammatory bowel disease Medical patient at bed rest Age 61-74 Arthroscopic surgery Major open surgery (> 45 min) Laparoscopic surgery (> 45 min) Malignancy Confined to bed (> 72 hours) Immobilizing plaster cast Central venous access Age >= 75 History of VTE Family history of VTE Factor V Leiden Prothrombin [id number] Lupus anticoagulant Anticardiolipin antibodies Elevated serum homocysteine Heparin-induced thrombocytopenia Other congenital or acquired thrombophilia Stroke (< 1 month) Elective arthroplasty Hip, pelvis, or leg fracture Acute spinal cord injury (< 1 month) Prophylaxis Regimen: Total Risk Factor Score Risk Level Prophylaxis Regimen 0-1 Low Early ambulation 2 Moderate Order ONE of the following: *Sequential Compression Device (SCD) *Heparin 5000 units SQ BID 3-4 Higher Order ONE of the following medications: *Heparin 5000 units SQ TID *Enoxaparin/Lovenox 40 mg SQ daily (WT < 150 kg, CrCl > 30 mL/min) *Enoxaparin/Lovenox 30 mg SQ daily (WT < 150 kg, CrCl > 10-29 mL/min) *Enoxaparin/Lovenox 30 mg SQ BID (WT < 150 kg, CrCl > 30 mL/min) AND/OR *Sequential Compression Device (SCD) 5 or more Highest Order ONE of the following medications: *Heparin 5000 units SQ TID (Preferred with Epidurals) *Enoxaparin/Lovenox 40 mg SQ daily (WT < 150 kg, CrCl > 30 mL/min) *Enoxaparin/Lovenox 30 mg SQ daily (WT < 150 kg, CrCl > 10-29 mL/min) *Enoxaparin/Lovenox 30 mg SQ BID (WT < 150 kg, CrCl > 30 mL/min) AND *Sequential Compression Device (SCD) Assessment and Plan - Assessment (1) Chest pain Code(s): R07.9 - Chest pain, unspecified Status: Acute (2) Hypertension Code(s): I10 - Essential (primary) hypertension Status: Acute (3) Diabetes Code(s): E11.9 - Type 2 diabetes mellitus without complications Status: Acute (4) Elevated LFTs Code(s): R94.5 - Abnormal results of liver function studies Status: Acute (5) Thrombocytopenia Code(s): D69.6 - Thrombocytopenia, unspecified Status: Acute (6) Alcohol abuse Code(s): F10.10 - Alcohol abuse, uncomplicated Status: Acute - Plan * Chest pain: Her symptoms seem atypical. She will have serial cardiac enzymes and EKGs for ruling out purposes and will be seen by Dr. Ceballos of cardiology and the chest pain center. We will get a gallbladder ultrasound. Patient likely to have a stress test afterwards. She would like to be discharged home if her tests are unremarkable. She went to follow with her PCP. Return to ED for interval issues. * Hypertension: Her blood pressure was elevated however she has not taken amlodipine for a couple weeks, she starts to pick the prescription up from the pharmacy. We will restart medications. She will need follow-up with her physician. * Diabetes: Diabetic diet. She needs to discuss her diabetes with her physician as it does not sound like it is trolled which could likely be related to her diet. Sliding scale insulin coverage while in chest pain center. Resume her medication at discharge. She denies hyperlipidemia however she should be on statin therapy with history of diabetes unless contraindication and her LFTs are elevated mildly at this time. She is discussed this with her PCP. * Thrombocytopenia: Patient needs to have this follow-up with her PCP. She is to discuss her medications as some of the medications may have something to her thrombus cytopenia further evaluation will be needed by her PCP. * Alcohol abuse: Patient has been counseled importance of significantly reducing her alcohol intake if not completely discontinuing it. Patient is stable at this time. She is agreeable to this plan.
--- NOTE | 2018-02-20 13:00 | US ---
EXAM DATE: 02/20/2018 12:46 PM EST AGE/SEX: 48 years / Female INDICATIONS: Nausea and vomiting. CLINICAL DATA: This is the patient's initial encounter. Patient reports that signs and symptoms have been present for 3 weeks and indicates a pain score of 8/10. MEDICAL/SURGICAL HISTORY: Diabetes. Hypertension. Hypercholesterolemia. None. COMPARISON: No prior exams available for comparison. MEASUREMENTS: Liver:__ 18.4 cm. Common Bile Duct:__ 5mm. FINDINGS: Liver: Increased echotexture without focal lesion or ductal dilation. Portal Vein: Hepatopedal flow seen in portal vein. Common Duct: No intraluminal mass or stone visualized. Gallbladder: Demonstrates no wall thickening or pericholecystic fluid. No stones visualized. Pancreas: The visualized portions are within normal limits Right Kidney: Normal echotexture and cortical thickness. No mass or hydronephrosis. Other: None. CONCLUSION: Mild probable hepatic steatosis. Electronically signed by: Siddharth Zambrano MD 02/20/2018 12:58 PM EST
[2018-02-20] MEDS: amLODIPine 5 MG Tablet PO SCH (13:08)
[2018-02-20 13:12] LABS: Creatine Kinase 176 U/L (26-192)
[2018-02-20] MEDS ORDERED: Atropine/Scopolamine/Hyoscyamine/Phenobarb 10 ML Liq UDC PO STA (13:51)
[2018-02-20] MEDS ORDERED: Aluminum/Magnesium/Simethacone Susp 30 ML UDC PO STA (13:51)
[2018-02-20 14:46] LABS: Creatine Kinase 196 U/L (26-192)
[2018-02-20 14:58] LABS: CKMB Percent 0.9 % (0.0-4.0); Creatine Kinase MB 1.7 ng/mL (0.5-3.6)
[2018-02-20] MEDS ORDERED: Regadenoson Inj 0.4 MG/5 ML Syringe IV.PUSH ONE (15:45)
--- NOTE | 2018-02-20 16:45 | ECG ---
Date Performed: 02/20/2018 Time Performed: 12:07:44 PTAGE: 48 years EKG: Sinus rhythm NORMAL ECG Since PREVIOUS TRACING , no significant change noted PREVIOUS TRACIN02/20/2018 07.29 DOCTOR: Lawanda Ceballos Interpretating Date/Time 02/20/2018 16:45:02
--- NOTE | 2018-02-20 16:48 | TR ---
Date Performed: 02/20/2018 Time Performed: 16:05:41 DOCTOR: Lawadna Ceballos DRUG LIST: CLINICAL HISTORY: REASON FOR TEST: REASON FOR ENDING: OBSERVATION: CONCLUSION: Lexiscan stress test was performed under standard four minute protocol. Radionuclid e was injected one minute prior to ending the test. No electrocardiographic abormalities were present to suggest ischemia. Nuclear imaging and interpretation are pending. COMMENTS: Lexiscan stress test was performed under standard four minute protocol. Radionuclide was injected one minute prior to ending the test. No electrocardiographic abormalities were present t o suggest ischemia. Nuclear imaging and interpretation are pending.
--- NOTE | 2018-02-20 16:54 | ECG ---
Date Performed: 02/20/2018 Time Performed: 07:29:52 PTAGE: 48 years EKG: Sinus rhythm NORMAL ECG NO PREVIOUS TRACING DOCTOR: Lawanda Ceballos Interpretating Date/Time 02/20/2018 16:53:31
--- NOTE | 2018-02-20 17:21 | NM ---
EXAM DATE: 02/20/2018 4:46 PM EST AGE/SEX: 48 years / Female INDICATIONS:Angina. . Chest pain. CLINICAL DATA: This is the patient's initial encounter. Patient reports that signs and symptoms have been present for 3 weeks and indicates a pain score of 9/10. MEDICAL/SURGICAL HISTORY: Hypertension. Diabetes mellitus type II. None. COMPARISON: No prior exams available for comparison. DOSE: 8.2 mCi Tc 99m Myoview at rest 26.4 mCi [id number] at stress 0.4 mg Lexiscan STRESS SYMPTOMS: None. EJECTION FRACTION: >70 % TECHNIQUE: The patient underwent pharmacologic stress with infusion of prescribed dose. Continuous ECG tracing was monitored during stress. Gated SPECT imaging was performed after stress and conventi onal SPECT imaging was performed at rest. The examination was performed on a SPECT/CT scanner, both attenuation and non-corrected datasets were reviewed. FINDINGS: Distribution: The maximum perfused segment at stress is in the posterior basal wall. Perfusion Study: There is an intermediate sized area of moderately diminished relative perfusion in volving the anterior wall extending to the cardiac apex and at least mild-moderate redistribution dat dent. Gated Study: There are intact wall motion and wall thickening without hypokinetic or dyskinetic segm ents. The ejection fraction is calculated at >70%. RISK CATEGORY: Intermediate (1-3 % Annual Mortality Rate) CONCLUSION: Moderate sized moderate severity reversible anterior wall and apical perfusion abnormality. Electronically signed by: Siddharth Zambrano MD 02/20/2018 5:20 PM EST
[2018-02-20] MEDS: Metoprolol Tartrate 25 MG Tablet PO SCH (20:23)
[2018-02-20] MEDS: Amitriptyline 10 MG Tablet PO SCH (20:23)
[2018-02-20] MEDS: Gabapentin 300 MG Capsule PO SCH (20:23)
[2018-02-20] MEDS: Morphine Inj 4 MG/ML Vial IV.PUSH PRN (20:25)
--- NOTE | 2018-02-20 21:10 | P.PN ---
Subjective Interval history: [facility] regarding positive nuclear stress test. Patient reports she has been having nausea and vomiting dry. She noted some chest pain in the midsternal area which seemed to be worse last night. Chest pain was ongoing most of the night per her report. She had her 16 -year-old son drive her to the ER this morning. Cardiac enzymes were negative and no obvious ST elevation was noted on EKGs. She subsequently underwent nuclear stress test which revealed moderate sized moderate severity reversible defect in the apical and anterior myocardial rosario. Cardiology was consulted and Mr. Randell Bell spoke with Dr. Valdo Bar who agreed to see the patient in consultation but requested the patient be admitted to the medicine service. Plan is for heart catheterization tomorrow morning. It is noted the patient has poorly controlled diabetes and I have instructed her on appropriate diet and medication compliance. Patient reports that she was able to eat food earlier today and has had no vomiting since her nuclear stress test was administered. She is chest pain-free currently. Physical Exam Vital signs: Vital Signs 02/20/18 07:19 02/20/18 09:20 02/20/18 09:45 Temperature 98.6 F Pulse Rate 100 H 101 H 77 Respiratory Rate 18 18 18 Blood Pressure 198/102 H 192/91 H 162/85 H Pulse Oximetry 96 98 100 02/20/18 12:00 02/20/18 16:00 Temperature Pulse Rate 69 83 Respiratory Rate 12 16 Blood Pressure 140/81 166/95 H Pulse Oximetry 97 98 Intake & Output 02/20/18 02/20/18 02/21/18 06:59 18:59 06:59 Intake Total 1000 / 1000 Balance 1000 / 1000 Weight 76.204 kg Intake: IV 1000 / 1000 NS Inj 1,000 ML @ 125 mls/hr IV 1000 / 1000 .CONT .Q8H [facility] Rx#:[id number] Other: Weight On Admission 76.204 kg Narrative: GENERAL: Awake alert. No acute distress. Cooperative. SKIN: Warm and dry. Slightly hyperemic upper torso and face. HEAD: Normocephalic. EYES: No scleral icterus. No injection or drainage. NECK: Supple, trachea midline. No JVD or lymphadenopathy. CARDIOVASCULAR: Regular rate and rhythm without murmurs, gallops, or rubs. RESPIRATORY: Breath sounds equal bilaterally. No accessory muscle use. GASTROINTESTINAL: Abdomen soft, non-tender, nondistended. MUSCULOSKELETAL: No cyanosis, or edema. BACK: Nontender without obvious deformity. No CVA tenderness. Results - Labs CBC & Chem 7: 02/20/18 07:42 02/20/18 07:42 Laboratory Results - last 24 hr 02/20/18 02/20/18 02/20/18 07:42 07:42 07:42 WBC 4.0 RBC 4.33 Hgb 15.4 H Hct 45.4 MCV 104.7 H MCH 35.4 H MCHC 33.8 RDW 14.7 Plt Count 95 L MPV 9.6 Prelim Diff (Auto) Slide review pending Neut % (Auto) 62.9 Lymph % (Auto) 21.7 [place] % (Auto) 10.7 H Eos % (Auto) 3.6 Baso % (Auto) 1.1 Neut # (Auto) 2.5 Lymph # (Auto) 0.9 L [place] # (Auto) 0.4 Eos # (Auto) 0.1 Baso # (Auto) 0.0 WBC Differential . Diff Scan Auto diff confirmed Differential Comment . Platelet Estimate Low L Platelet Morphology Normal Sodium 136 Potassium 3.8 Chloride 99 Carbon Dioxide 29.7 Anion Gap 7 BUN 9 Creatinine 0.76 Estimated GFR 82 L POC Glucose Random Glucose 209 H Calcium 9.2 Total Bilirubin 1.5 H AST 69 H ALT 58 H Alkaline Phosphatase 94 Total Creatine Kinase CK-MB (CK-2) CK-MB (CK-2) % Troponin I Less than 0.02 L Total Protein 9.4 H Albumin 4.2 Lipase 242 02/20/18 02/20/18 02/20/18 11:55 12:01 14:10 WBC RBC Hgb Hct MCV MCH MCHC RDW Plt Count MPV Prelim Diff (Auto) Neut % (Auto) Lymph % (Auto) [place] % (Auto) Eos % (Auto) Baso % (Auto) Neut # (Auto) Lymph # (Auto) [place] # (Auto) Eos # (Auto) Baso # (Auto) WBC Differential Diff Scan Differential Comment Platelet Estimate Platelet Morphology Sodium Potassium Chloride Carbon Dioxide Anion Gap BUN Creatinine Estimated GFR POC Glucose 178 H Random Glucose Calcium Total Bilirubin AST ALT Alkaline Phosphatase Total Creatine Kinase 176 196 H CK-MB (CK-2) 1.7 CK-MB (CK-2) % 0.9 Troponin I Less than 0.02 L Less than 0.02 L Total Protein Albumin Lipase 02/20/18 17:49 WBC RBC Hgb Hct MCV MCH MCHC RDW Plt Count MPV Prelim Diff (Auto) Neut % (Auto) Lymph % (Auto) [place] % (Auto) Eos % (Auto) Baso % (Auto) Neut # (Auto) Lymph # (Auto) [place] # (Auto) Eos # (Auto) Baso # (Auto) WBC Differential Diff Scan Differential Comment Platelet Estimate Platelet Morphology Sodium Potassium Chloride Carbon Dioxide Anion Gap BUN Creatinine Estimated GFR POC Glucose 154 H Random Glucose Calcium Total Bilirubin AST ALT Alkaline Phosphatase Total Creatine Kinase CK-MB (CK-2) CK-MB (CK-2) % Troponin I Total Protein Albumin Lipase - Imaging Impressions Chest X-Ray 02/20/18 07:28 CONCLUSION: Negative examination. Gallbladder Ultrasound 02/20/18 11:54 CONCLUSION: Mild probable hepatic steatosis. Myocardial Perfusion Scan Nuc Med 02/20/18 14:59 CONCLUSION: Moderate sized moderate severity reversible anterior wall and apical perfusion abnormality. Assessment and Plan - Assessment (1) Chest pain, rule out acute myocardial infarction Code(s): R07.9 - Chest pain, unspecified Status: Acute Plan: Positive nuclear stress test as noted above. She does have poorly controlled diabetes and also has underlying hypertension. Plan for heart catheterization tomorrow morning. Dr. Bar is aware. (2) Diabetes Code(s): E11.9 - Type 2 diabetes mellitus without complications Status: Chronic Plan: Seems to have been relatively poorly controlled. A1c was 11.3 in [facility] of this year. A1c currently pending for this hospitalization. I started on Accu-Cheks and sliding scale insulin. (3) Alcohol abuse Code(s): F10.10 - Alcohol abuse, uncomplicated Status: Chronic Plan: We will monitor for any signs of withdrawal. Monitor CBC and LFTs (4) Thrombocytopenia Code(s): D69.6 - Thrombocytopenia, unspecified Status: Acute Plan: As above. - Plan Code Status: Full Discussed Condition With: Patient and Mr. Bell. (2) Diabetes Qualifiers: Diabetes mellitus type: type 2
[2018-02-20] MEDS ORDERED: Haloperidol Inj 5 MG/ML Ampul IV.PUSH PRN (21:11)
[2018-02-21] MEDS ORDERED: Metoprolol Tartrate 25 MG Tablet PO SCH (05:00)
[2018-02-21] MEDS: Insulin NovoLOG Aspart Correctional Sugar Inj SQ SCH ×4 (08:19→21:42)
[2018-02-21] MEDS: amLODIPine 5 MG Tablet PO SCH (08:20)
[2018-02-21] MEDS: Metoprolol Tartrate 25 MG Tablet PO SCH ×2 (08:20→21:20)
--- NOTE | 2018-02-21 08:21 | P.CONCA ---
History of Present Illness Service: cardiology Consult date: 02/21/18 Reason for Consult: chest pain ,abnormal lexiscan Primary Care Provider: UNKNOWN Chief Complaint: Chest pain History of Present Illness: 48 yo F with hypertension, diabetes, and family history of heart disease that presents to ED via private vehicle with complaint of chest discomfort. Patient states that she just has not been feeling well last approximately 3 weeks. States she has been vomiting quite often. Out of the 3 weeks she has probably had 9 or 10 days of vomiting multiple times each of those days. When this occurs she has a discomfort in the center/right side of her chest radiating to the neck. The discomfort is described as a burning. Usually discomfort will last about 30 minutes. Resolves on its own. She at times becomes short of breath and diaphoretic. Night before last around 2am she was working with the same burning lasted about 2 hours which is longer than it has been lasting previously. There is family history of heart disease. She states that her brother had stents at age 55. Both parents had MIs at age 52. Patient is diabetic and admits to not having her diabetes under the best control. Her primary care physician is Dr. Piedra. Patient is a non-smoker. She drinks on average 4 triple margaritas on evenings 5-7 evenings a week. Denies illicit drug use. She is with a child. She is a schoolteacher. Family history include beginning: Her brother had stents at age 55. Both parents had MIs at age 52. Review of Systems All other systems reviewed negative except as stated in HPI [facility] - History History Provided By: Patient - Medical History Medical History: Medical History (Last Reviewed 02/20/18 @ 09:55 by Roshan Watson) Diabetes HTN (hypertension) Hypercholesterolemia - Surgical History Surgical History: Surgical History (Last Reviewed 02/20/18 @ 12:25 by ARIELLE Knott) No history of previous surgery - Tobacco History Second Hand Smoke Exposure: No Tobacco Use In Past 30 Days: No Smoking Status: Never smoker - Alcohol History How Often Do You Have a Drink Containing Alcohol: 4 or more times a week - Substance Use History Substance History: No History of Abuse - Travel History Recent Travel in the [place] Within the Last 8 Weeks: No Recent Travel Out of the Country Within the Last 8 Weeks: No - Immunization History Tetanus Immunization: <5 Years Tetanus Immunization Year if Known: 2013 Medications and Allergies Allergies Allergy/AdvReac Type Severity Reaction Status Date / Time coconut Allergy Anaphylaxis Verified 02/20/18 09:26 Home Medications Medication Instructions Recorded Confirmed Type amitriptyline 10 mg PO HS 02/20/18 02/20/18 History amlodipine 5 mg PO DAILY 02/20/18 02/20/18 History duloxetine 30 mg PO DAILY 02/20/18 02/20/18 History gabapentin 600 mg PO HS 02/20/18 02/20/18 History glimepiride 4 mg PO BID 02/20/18 02/20/18 History lisinopril 20 mg PO DAILY 02/20/18 02/20/18 History metformin 500 mg PO BID 02/20/18 02/20/18 History Active Medications: Active Medications Albuterol (Duoneb Neb (Prn)) 1 ampul NEB Q4HR NEB PRN PRN Reason: SHORTNESS OF BREATH/WHEEZING Amitriptyline HCl (Elavil) 10 mg PO HS [facility] Last Admin: 02/20/18 20:23 Dose: 10 mg Amlodipine Besylate (Norvasc) 5 mg PO DAILY [facility] Last Admin: 02/20/18 13:08 Dose: 5 mg Aspirin (Aspirin) 325 mg PO DAILY [facility] Dextrose (D50w Vial) 50 ml IV.PUSH UNSCH PRN PRN Reason: PER HYPOGLYCEMIA PROTOCOL Duloxetine HCl (Cymbalta) 30 mg PO DAILY [facility] Flumazenil (Romazecon Inj) 0.2 mg IV.PUSH Q1M PRN PRN Reason: OVERSEDATION Gabapentin (Neurontin) 600 mg PO HS [facility] Last Admin: 02/20/18 20:23 Dose: 600 mg Glucagon (Glucagon Inj) 1 mg OTHER PRN PRN PRN Reason: for Hypoglycemia Protocol Haloperidol Lactate (Haldol Inj) 1 mg IV.PUSH Q15M PRN PRN Reason: for severe agitation Insulin Aspart (Novolog Insulin Correctional Sugar Inj) 0 unit SQ ACHS [facility]; Protocol Lisinopril (Prinivil) 20 mg PO DAILY [facility] Lorazepam (Ativan) 1 mg PO Q4H PRN PRN Reason: for CIWA 8-10 Lorazepam (Ativan) 2 mg PO Q2H PRN PRN Reason: for CIWA 11-14 Lorazepam (Ativan Inj) 2 mg IV.PUSH Q2H PRN PRN Reason: for CIWA 11-14 Lorazepam (Ativan Inj) 2 mg IV.PUSH Q1H PRN PRN Reason: for CIWA 15-20 Lorazepam (Ativan Inj) 2 mg IV.PUSH Q15M PRN PRN Reason: for CIWA > 20 Lorazepam (Ativan Inj) 1 mg IV.PUSH Q4H PRN PRN Reason: for CIWA 8-10 Metoprolol Tartrate (Lopressor) 25 mg PO BID [facility] Last Admin: 02/20/18 20:23 Dose: 25 mg Morphine Sulfate (Morphine Inj) 2 mg IV.PUSH Q4H PRN PRN Reason: PAIN SCALE 6 TO 10 Last Admin: 02/20/18 20:25 Dose: 2 mg Ondansetron HCl (Zofran Inj) 4 mg IV.PUSH Q6H PRN PRN Reason: NAUSEA Last Admin: 02/20/18 14:30 Dose: 4 mg Pantoprazole Sodium (Protonix) 40 mg PO DAILY [facility] Last Admin: 02/20/18 19:04 Dose: 40 mg Sodium Chloride (Ns Flush) 2 ml IV.FLUSH PRN PRN PRN Reason: FLUSH AFTER USING IV ACCESS Sodium Chloride (Ns Flush) 2 ml IV.FLUSH BID [facility] Last Admin: 02/20/18 20:24 Dose: 2 ml Exam Vital signs: Vital Signs 02/20/18 09:20 02/20/18 09:45 02/20/18 12:00 Temperature Pulse Rate 101 H 77 69 Respiratory Rate 18 18 12 Blood Pressure 192/91 H 162/85 H 140/81 Pulse Oximetry 98 100 97 02/20/18 16:00 02/20/18 20:00 02/20/18 20:15 Temperature 98.3 F Pulse Rate 83 76 72 Respiratory Rate 16 20 Blood Pressure 166/95 H 152/91 H Pulse Oximetry 98 95 02/20/18 20:30 02/21/18 00:00 02/21/18 03:31 Temperature 98.7 F 98.4 F Pulse Rate 68 69 Respiratory Rate 16 18 18 Blood Pressure 139/77 169/89 H Pulse Oximetry 67 L 94 L 02/21/18 08:03 02/21/18 08:11 Temperature 99.1 F Pulse Rate 71 Respiratory Rate 20 Blood Pressure 149/92 H Pulse Oximetry 96 97 Intake & Output 02/20/18 02/21/18 02/21/18 18:59 06:59 18:59 Intake Total 1000 / 1000 480 / 480 Balance 1000 / 1000 480 / 480 Weight 76.204 kg Intake: IV 1000 / 1000 NS Inj 1,000 ML @ 125 mls/hr IV 1000 / 1000 .CONT .Q8H [facility] Rx#:[id number] Oral 480 / 480 Other: # Voids 2 Date of Last Bowel Movement 02/20/18 Weight On Admission 76.204 kg Narrative: GENERAL: SKIN: Warm and dry. HEAD: Normocephalic. EYES: No scleral icterus. No injection or drainage. NECK: Supple, trachea midline. No JVD or lymphadenopathy. CARDIOVASCULAR: Regular rate and rhythm without murmurs, gallops, or rubs. RESPIRATORY: Breath sounds equal bilaterally. No accessory muscle use. GASTROINTESTINAL: Abdomen soft, non-tender, nondistended. MUSCULOSKELETAL: No cyanosis, or edema. Results 02/21/18 09:48 02/21/18 09:48 Cardiac Enzymes 02/20/18 02/20/18 02/20/18 Range/Units 07:42 11:55 14:10 AST 69 H (15-37) U/L CK-MB (CK-2) 1.7 (0.5-3.6) ng/mL Troponin I Less than 0.02 L Less than 0.02 L Less than 0.02 L (0.02-0.05) ng/mL CBC 02/20/18 Range/Units 07:42 WBC 4.0 (4.0-11.0) th/mm3 RBC 4.33 (4.00-5.30) mil/mm3 Hgb 15.4 H (11.6-15.3) gm/dL Hct 45.4 (35.0-46.0) % Plt Count 95 L (150-450) th/mm3 Neut # (Auto) 2.5 (1.8-7.7) th/mm3 Lymph # (Auto) 0.9 L (1.0-4.8) th/mm3 [place] # (Auto) 0.4 (0.0-0.9) th/mm3 Eos # (Auto) 0.1 (0.0-0.4) th/mm3 Baso # (Auto) 0.0 (0.0-0.2) th/mm3 Comprehensive Metabolic Panel 02/20/18 Range/Units 07:42 Sodium 136 (136-145) meq/L Potassium 3.8 (3.5-5.1) meq/L Chloride 99 (98-107) meq/L Carbon Dioxide 29.7 (21.0-32.0) meq/L BUN 9 (7-18) mg/dL Creatinine 0.76 (0.50-1.00) mg/dL Calcium 9.2 (8.5-10.1) mg/dL AST 69 H (15-37) U/L ALT 58 H (10-53) U/L Alkaline Phosphatase 94 (45-117) U/L Total Protein 9.4 H (6.4-8.2) g/dL Albumin 4.2 (3.4-5.0) g/dL Intake and Output 02/20/18 02/21/18 02/21/18 22:59 06:59 14:59 Intake Total 480 / 480 Balance 480 / 480 Intake: Oral 480 / 480 Other: # Voids 2 Date of Last Bowel Movement 02/20/18 Weight 76.204 kg Weight On Admission 76.204 kg - Imaging and Cardiology Imaging: Impressions Chest X-Ray 02/20/18 07:28 CONCLUSION: Negative examination. Gallbladder Ultrasound 02/20/18 11:54 CONCLUSION: Mild probable hepatic steatosis. Myocardial Perfusion Scan Nuc Med 02/20/18 14:59 CONCLUSION: Moderate sized moderate severity reversible anterior wall and apical perfusion abnormality. Assessment and Plan - Assessment (1) Chest pain Code(s): R07.9 - Chest pain, unspecified Status: Acute - Plan 48 yo F with hypertension, diabetes, and family history of heart disease that presents to ED via private vehicle with complaint of chest discomfort. Patient states that she just has not been feeling well last approximately 3 weeks. States she has been vomiting quite often. Out of the 3 weeks she has probably had 9 or 10 days of vomiting multiple times each of those days. When this occurs she has a discomfort in the center/right side of her chest radiating to the neck. The discomfort is described as a burning. Usually discomfort will last about 30 minutes. Resolves on its own. She at times becomes short of breath and diaphoretic. atypical chest pain- feeling mild chest pressure this morning while laying supine. telemetry unremarkable. troponin levels x 3 negative, EKG shows T wave inversion to V1, V2 lexisccan abnormal showing moderate sized area of reversible ischemia to anterior wall and apical regions. Plan for cardiac catheterization this morning. keep npo - Attending Attestation Agree with above Left heart catheterization showed multivessel coronary artery disease. We will consult cardiothoracic surgery.
[2018-02-21] MEDS ORDERED: Aspirin 325 MG Tablet PO SCH (09:00)
[2018-02-21] MEDS ORDERED: Lisinopril 20 MG Tablet PO SCH ×2 (09:00→10:54)
--- NOTE | 2018-02-21 09:51 | P.PNIM ---
Subjective Interval history: Pt denies any chest pain currently She reports that she has been having issues with intermittent chest pain with nausea/vomiting and diaphoresis for a few weeks. She also complains of neuropathy in her feet which has been an ongoing issue for some time. She does note feel that the Gabapentin has been helping much with this. Physical Exam Vital signs: Last Vital Signs Temp 99.1 F 02/21/18 08:03 Pulse 71 02/21/18 08:03 Resp 20 02/21/18 08:03 BP 149/92 H 02/21/18 08:03 Pulse Ox 97 02/21/18 08:11 Narrative: General: NAD, AAOx3 Chest: CTA Cardiac: Regular Abd: +BS, soft ND/NT Ext: No edema Results Labs CBC & Chem 7: 02/27/18 04:00 02/27/18 04:00 Imaging Chest X-Ray 02/20/18 07:28 CONCLUSION: Negative examination. Gallbladder Ultrasound 02/20/18 11:54 CONCLUSION: Mild probable hepatic steatosis. Myocardial Perfusion Scan Nuc Med 02/20/18 14:59 CONCLUSION: Moderate sized moderate severity reversible anterior wall and apical perfusion abnormality. Assessment and Plan Assessment (1) Chest pain: Code(s): R07.9 - Chest pain, unspecified Status: Acute Plan Chest pain Abnormal stress test - Pt is a 48 y/o female with hypertension, diabetes, and family history of heart disease that was admitted to the [facility] on 02/20/18 with complaints of chest discomfort. Patient states that she just has not been feeling well last approximately 3 weeks. States she has been vomiting quite often. Out of the 3 weeks she has probably had 9 or 10 days of vomiting multiple times each of those days. When this occurs she has a discomfort in the center/right side of her chest radiating to the neck. The discomfort is described as a burning, lasting about 30 minutes and will typically resolve on its own. At times she has become short of breath and diaphoretic. The night prior to admission she developed the same burning pain which lasted longer than it had previously. - In the [facility] she had three sets of CE which were negative - Nuclear stress test (02/20/18) - Moderate sized moderate severity reversible anterior wall and apical perfusion abnormality. - Cardiology was consulted and pt was transferred to the Hospitalist team - Pt is currently planned for [facility] this afternoon. - Cont. ASA 325mg daily - She is on Metoprolol 25mg BID, Lisinopril 20mg daily and Norvasc 5mg daily - Monitor vitals closely - Further recommendations following [facility] - Awaiting repeat labs for today. Diabetes mellitus, type 2 Peripheral neuropathy - At home pt is on Amaryl 4mg po BID and Metformin 500mg BID, which are recent increases in her doses - Her last Hgb A1C in August 2017 was 11.3% but has been as high as 13% in 2017. - She has been noncompliant with referrals to Endocrinology. - Currently she is on NovoLog SSI - Add Levemir 5 units BID - She takes Gabapentin 600mg HS and Cymbalta 30mg daily for her neuropathy which she does not feel helps much. The source of her neuropathy is unclear. She is supposed to be having EMG studies done as an outpt which she missed her appt for that. Per Dr. French outpt notes pt will liekly require doses of Gabapentin upwards of 1800mg to get effect. - Add Gabapentin 300mg BID @ 0900, 1400 and continue her evening dose. - In review of outpt records she had been prescribed Lyrica 50mg TID in the past but she could not afford this. Alcohol abuse - [facility] protocol - Start Librium 25mg BID, pts last alcoholic beverage was on Monday, . - Monitor for DTs Progress Note: Quality VTE Deep Vein Thrombosis/Pulmonary Embolism Present on Admission: No _ (1) Chest pain Qualifiers: Chest pain type: Ischemic chest pain type:
[2018-02-21] MEDS ORDERED: Iohexol 350 MG/ML 50 ML Vial (for Cath Lab) IVCONTRAST ONE (09:57)
[2018-02-21] MEDS ORDERED: Lidocaine PF 1% Inj 30 ML Vial ONE (10:00)
[2018-02-21 10:28] LABS: Baso % (Auto) 1.2 % (0.0-2.0); Eos # (Auto) 0.2 th/mm3 (0.0-0.4); Eos % (Auto) 6.7 % (0.0-4.0); Hematocrit 40.6 % (35.0-46.0); Hemoglobin 13.8 gm/dL (11.6-15.3); Lymph # (Auto) 0.7 th/mm3 (1.0-4.8); Lymph % (Auto) 20.7 % (9.0-44.0); Mean Corpuscular Hemoglobin 35.7 pg (27.0-34.0); Mean Platelet Volume 9.9 fL (7.0-11.0); Mono # (Auto) 0.4 th/mm3 (0.0-0.9); Mono % (Auto) 11.5 % (0.0-8.0); Neut # (Auto) 2.1 th/mm3 (1.8-7.7); Neut % (Auto) 59.9 % (16.0-70.0); Platelet Count 69 th/mm3 (150-450); Red Blood Count 3.86 mil/mm3 (4.00-5.30); White Blood Count 3.6 th/mm3 (4.0-11.0)
[2018-02-21] MEDS ORDERED: Heparin/NS PF Inj 1,000 ML ONE (10:32)
[2018-02-21] MEDS ORDERED: fentaNYL Citrate Inj 100 MCG/2 ML Ampul ONE (10:33)
[2018-02-21] MEDS ORDERED: Heparin 10,000 UNITS/10 ML Vial (for IV use) ONE (10:33)
--- NOTE | 2018-02-21 10:59 | CATHPROC ---
[employer] HIS Report Study Information Study Number Admission Scheduled Start Study Start [id number] Feb 20 2018 9:56AM 02/21/2018 Feb 21 2018 10:14AM [facility] Service STR Admit Source Facility Department Emergency department [facility] - Drug Abuse Social Worker Physician and Clinical Staff Initial Zay Mart Biomedical Service Engineer Zayda Farnsworth,JOSE Recorder Jessica Romero,RT(R) Scrub Kenneth Junior,RT(R) Procedures Performed Procedure Location (Site) Vessel Name Coronary Angiograms LCA Left Coronary Coronary Angiograms RCA Right Coronary Coronary Angiograms MELO MELO L Heart Cath Equipment Time Electronic Heat Seal Operator Description Size Mfg Part Number Used/Scraped TRANSDUCER, TRUWAVE [id number] 10:40 WEBBER ALEX * Used W/STOCKCOCK *[id number] *[id number] *[id number] 10:40 [employer] BLANKET,WARM AIR CCL * Used *[id number] 10:40 [employer] PACK, CCL CUSTOM * Used *[id number] 10:40 [employer] SUPPORT, ARTERIAL ADULT [id number] *[id number] Used BAND, RADIAL COMPRESSION TR [id number] 10:51 [employer] 24CM Used SHORT 24 *[id number] SHEATH, FR6 RADIAL PRELUDE 10:40 [employer] FR 6 [id number] Used EASE 11CM [id number] 10:40 [employer] WIRE, EXCHANGE 260CM 3MMJ 260CM Used *[id number] 10:40 NAMIC MANIFOLD, 4 PORT * Used *[id number] 10:40 NYCOMED OMNIPAQUE, 350 MG, 150ML 150ML [id number] Used History: Allergies Allergy Reaction coconut Anaphylaxis History: Risk Factors Family History of Hypertension Dyslipidemia Premature CAD Yes Yes Yes Peripheral Artery Diabetes Diabetes Therapy Disease History: Stress Tests Stress or Imaging Studies Performed Yes Standard Exercise Stress Test No Stress Echo No Stress Test SPECT Stress Test SPECT Result Yes Positive Stress Test CMR No Cardiac CTA Coronary Calcium Score No No History: Other Current Smoker Method No Cigarettes Labs Hgb (g/dl) Hct (%) WBC (l/cumm) Platelets (thousands) 11.60-17.00 35.00-51.00 4.00-11.00 150.00-450.00 15.4 45.4 4 95 Glucose (mg/dl) BUN (mg/dl) Creatinine (mg/dl) BUN:Creatinine (1:x) 74.00-106.00 7.00-18.00 0.50-1.30 10.00-20.00 209 9 0.7 12.9 Na (meq/l) K (meq/l) 136.00-145.00 3.50-5.10 136 3.8 Troponin I (ng/ml) CPK (u/l) CPK-MB (ng/ML) 0.02-0.05 26.00-308.00 0.50-3.60 0.02 196 1.7 Medication Medication Total Dose (Bolus/Oral) Medication Total Dosage/Unit 1% XYLOCAINE 5 mL FENTANYL 50 mcg HEPARIN 5000 units NTG (IC) 200 mcg VERSED 2 mg Medications (Bolus/Oral) Medication Time Given Dosage/Unit Administered By Reason 02/21/2018 10:35:40 VERSED 2 mg Zayda Farnsworth AM 2 mg VERSED given in lab by Zayda Farnsworth RN in Right Antecubital via Peripheral IV. Ordered by Zay Ledbetter. 02/21/2018 10:36:24 FENTANYL 50 mcg Zayda Farnsworth AM 50 mcg FENTANYL given in lab by Zayda Farnsworth RN in Right Antecubital via Peripheral IV. Ordered b Zay Weston. 02/21/2018 10:39:35 1% XYLOCAINE 5 mL Zay Bar AM 5 mL 1% XYLOCAINE given in lab by Zay Bar in Right Radial via Subcutaneous. 02/21/2018 10:40:54 NTG (IC) 200 mcg Zay Bar AM 200 mcg NTG (IC) given in lab by Zay Bar in Right Radial via Intra-arterial. 02/21/2018 10:41:50 HEPARIN 5000 units Zayda Farnsworth AM 5000 units HEPARIN given in lab by Zayda Farnsworth RN in Right Antecubital via Peripheral IV. Ordere d by Zay Bar. Medication (Drip) Medication Time Given Dosage/Unit Concentration/Unit Diluent (ml) Solution 02/21/2018 10:15:59 IV Solutions 50 mL (IV) NaCl .9 AM IV Solutions given in lab by Zayda Farnsworth RN in Right Antecubital via Peripheral IV. Pump/Drip Fl ow using NaCl .9. Initial Case Assessment Cardiovascular Chest Pain 0 Edema Present Skin color Skin None Normal Warm Dry Circulatory - Right Pulses Dorsalis Pedis Femoral Radial 2 2 2 Scale (0,1,2,3,4,d) Circulatory - Left Pulses Dorsalis Pedis Femoral Radial 2 2 Scale (0,1,2,3,4,d) Neurological State Oriented to time-place- Alert Moves all extremities person Chronological Log Time Study Chronological Log 10:14:24 Patient arrived via Bed. 10:15:29 Patient Name, D.O.B, / Armband Verified By R.N. 10:15:30 Consent signed by the physician and the patient and verified by the Drug Abuse Social Worker staff. 10:15:31 Pre-op and post- op instructions given; patient acknowledges understanding of instructions . 10:15:36 Presedation assessment performed by Drug Abuse Social Worker RN. 10:15:36 Allens test performed on the right radial and ulnar artery. 10:15:43 Patient has been NPO for More than 6Hrs. 10:15:44 Skin Breakdown- 10:15:45 Patient Warmer Placed on the Table. 10:15:47 Anya Prominences Protected 10:15:48 A # 20 IV was noted in the Antecubital (right). Grade = 0 10:15:59 IV Solutions given in lab by Zayda Farnsworth, RN in Right Antecubital via Peripheral IV. P ump/Drip Flow using NaCl .9. 10:16:00 History and physical on the chart or being dictated. Assessment: Initial Case, Chest Pain=0, Edema=None, Color=Normal, Skin = Warm, Dry Right Pulses: Rony Ped=2, Femoral=2, Radial=2 10:16:04 Left Pulses: Rony Ped=2, Femoral=2 Neurological: State=Alert, Ox3, RETANA Vitals capture started with the following parameters, Patient=Adult, Interval=5 min, Initial P ppmcuvu=221 mmHg, 10:20:52 Deflation Rate=5 mmHg, Cuff placed on Left Arm 10:21:28 HR=71 bpm, OSIY=111/95 mmhg, SpO2=97.0 %, Resp=11 B/min 10:24:33 Reference ECG taken 10:26:07 Right Radial and groin(s) prepped with 2% chlorhexidine, and draped after a 3 min. waiting time. 10:26:29 HR=69 bpm, IZBQ=314/100 mmhg, SpO2=96.0 %, Resp=14 B/min 10:31:30 HR=72 bpm, UIBI=432/100 mmhg, SpO2=95 %, Resp=9 B/min 10:33:21 MD paged 10:34:44 MD arrived. 10:35:40 2 mg VERSED given in lab by Zayda Farnsworth, RN in Right Antecubital via Peripheral IV. Ord ered by Zay Bar. 50 mcg FENTANYL given in lab by Zayda Farnsworth, JOSE in Right Antecubital via Peripheral IV. Ord ered by Yosvany, 10:36:24 Zay. 10:37:08 HR=72 bpm, FWIT=755/101 mmhg, SpO2=97.0 %, Resp=16 B/min 10:38:03 Pressure channel 1 zeroed. Time Out. Correct patient, correct procedure, correct physician, labs, allergies, and equipment verified with slabber 10:38:50 team present. Fire risk assesment completed (see hard stop sheet for coding). Time Out Conc urred by and individual staff in procedure. 10:39:33 Case Start 10:39:35 5 mL 1% XYLOCAINE given in lab by Zay Bar in Right Radial via Subcutaneous. 10:40:07 Access site was Right Radial Artery . A SHEATH, FR6 RADIAL PRELUDE EASE 11CM FR 6 was advanced into the Radial (right) using the Perc utaneous 10:40:15 technique. 10:40:54 200 mcg NTG (IC) given in lab by Zay Bar in Right Radial via Intra-arterial. 10:41:32 HR=79 bpm, NHWO=315/80 mmhg, SpO2=97.0 %, Resp=10 B/min 5000 units HEPARIN given in lab by Zayda Farnsworth, JOSE in Right Antecubital via Peripheral IV. Ordered by Yosvany, 10:41:50 Zay. A JR 5.0 INFINITI CATHETER FR 5 was advanced over a wire. OMNIPAQUE, 350 MG, 150ML 150ML was us ed for 10:41:50 injections. 10:43:15 The RCA was injected and visualized at various angles. OMNIPAQUE, 350 MG, 150ML 150ML used . After removing the current catheter a JL 3.5 INFINITI CATHETER FR 5 was advanced over a WIRE, E XCHANGE 260CM 10:43:37 3MMJ 260CM. 10:44:58 The LCA was injected and visualized at various angles. OMNIPAQUE, 350 MG, 150ML 150ML used . Recorded Pressure: Ao, HR=79, Condition=Condition 1 10:45:07 (Aorta) Ao 142/92/114 10:46:27 HR=78 bpm, BPQD=288/87 mmhg, SpO2=90 %, Resp=14 B/min 10:47:06 The MELO was injected and visualized at various angles. OMNIPAQUE, 350 MG, 150ML 150ML used . 10:48:00 Catheter was removed 10:48:15 NIBP STAT measurement started. 10:48:18 Case End (Physician broke scrub) 10:48:48 HR=79 bpm, JUXK=363/74 mmhg, SpO2=90 %, Resp=14 B/min Radial Compression Device Used. 13 mLs of air placed in BAND, RADIAL COMPRESSION TR SHORT 24 24 CM. Affected 10:51:03 hand 96 % O2 saturation. 10:51:26 HR=76 bpm, FRKB=615/89 mmhg, SpO2=90 %, Resp=13 B/min 10:56:12 Vitals capture stopped. 10:59:29 No case complications noted. 10:59:30 Cine recording checked. 10:59:34 Bedside Report will be given. 10:59:35 A Left Heart Cath was performed. 10:59:36 Patient moved to [facility] End Study - Contrast Media Used In Study Contrast Total Opened (mL) Total Used (mL) Total Wasted (mL) Omnipaque 350 150 25 125 End Study - Maximum Contrast Load Max Contrast Load (mL) 544.2 End Study - Radiation Exposure Fluoro Time (minutes) 1.8 End Study - Patient Disposition Complications Transferred To Interventional Outcome No Telemetry Bed successful
--- NOTE | 2018-02-21 11:03 | P.PCN ---
Date of procedure: 02/21/18 Pre-op diagnosis: Unstable angina Procedure: quencher operator: Valdo Bar MD Procedures performed: 1. Fluoroscopy with interpretation 2. Coronary angiography 3. Left subclavian artery angiography Methods: Risks, benefits, and alternatives were discussed with the patient. Patient understood and consented to the procedure. Patient was brought into the cardiac catheterization lab and placed on the catheterization table. The patient's right wrist was prepped and draped in a sterile fashion. The right wrist was anesthetized with 1% lidocaine. Right wrist was cannulated and a 6 Nicaraguan 11 cm sheath was placed without difficulty. 200 mcg of intra-arterial nitroglycerin was administered and 5000 units of intravenous heparin. Coronary angiography: The left main coronary artery was selectively engaged with a 5 Nicaraguan JL 3.5 Alexia catheter. The right coronary circulation was selectively engaged with a 5 [place]araguan JR 5 Alexia catheter. 1. Left main coronary artery has minor luminal irregularities 2. Left anterior descending coronary artery gives rise to a high first diagonal branch which has only minor luminal irregularities. The mid left anterior descending coronary artery has a 90% tubular stenosis at the bifurcation of a moderate size second diagonal branch. The second diagonal branch has a 95-99% subtotal occlusion. There is minor luminal irregularities in the proximal left anterior descending coronary artery. 3. Left circumflex coronary artery gives rise to an obtuse marginal branch with minor luminal irregularities 4. Right coronary is a dominant vessel giving rise to the posterior descending branch. The right coronary artery has an 80% rather diffuse stenosis through the entire mid segment. The posterior descending coronary artery is widely patent. Left subclavian artery angiography: Left subclavian was selected engaged with a 6 Nicaraguan JL 3.5 catheter. There appeared to be a napkin ring stenosis of approximately 50% in the left subclavian artery. The left internal mammary artery was visualized. Due to the approach from the right wrist visualization was difficult and we could not do a pullback gradient. We will further evaluate with CT scan of the chest. Conclusions: 1. Severe mid left anterior descending and diagonal branch bifurcation stenosis 2. Severe mid right coronary artery stenosis Plan: We will continue with guideline directed medical therapy. Given the severity of stenosis at the bifurcation left anterior descending and diagonal branches, re-creating that coronary anatomy would be difficult and jeopardized the loss of a moderate sized diagonal branch. There is also involvement of the mid right coronary artery. There is very good distal targets. We will consider cardiothoracic surgical consultation for coronary artery bypass grafting. We will need to obtain a CT of the chest and further evaluate the left subclavian artery to determine whether that is a hemodynamically significant stenosis or not. Given her age, would ideally like to use the left internal mammary artery. Whether a percutaneous intervention would be necessary for the subclavian artery will be determined at a later time. Anesthesia: MAC Surgeon: Zay Bar
[2018-02-21 11:06] LABS: Alanine Aminotransferase 64 U/L (10-53); Albumin 3.5 g/dL (3.4-5.0); Alkaline Phosphatase 70 U/L (45-117); Anion Gap 8 meq/L (5-15); Aspartate Aminotransferase 117 U/L (15-37); Blood Urea Nitrogen 9 mg/dL (7-18); Calcium 8.2 mg/dL (8.5-10.1); Carbon Dioxide 27.2 meq/L (21.0-32.0); Chloride 102 meq/L (98-107); Chol/HDL Ratio 5.72 Ratio; Cholesterol 209 mg/dL (120-200); Glomerular Filtration Rate Greater Than 89 mL/min (>89); Glucose,Random 173 mg/dL (74-106); HDL Cholesterol 36.5 mg/dL (40.0-60.0); LDL Cholesterol,Calculated 145 mg/dL (0-99); Potassium 3.8 meq/L (3.5-5.1); Sodium 137 meq/L (136-145); Total Protein 7.8 g/dL (6.4-8.2); Triglycerides 140 mg/dL (42-150)
[2018-02-21 11:48] LABS: Blast Cells 1 % (0-0); Eosinophils 9 % (0-4); Lymphocytes 23 % (9-44); Metamyelocytes 1 % (0-1); Monocytes 7 % (0-8); Platelet Morphology Normal (Normal)
[2018-02-21] MEDS ORDERED: chlordiazePOXIDE 25 MG Capsule PO SCH (12:15)
[2018-02-21 13:04] LABS: Hemoglobin A1c 10.1 % (4.3-6.0)
[2018-02-21] MEDS ORDERED: Dextrose 50% in Water 50 ML Vial IV.PUSH PRN (13:56)
[2018-02-21] MEDS ORDERED: Chlorhexidine 4% Topical 120 APPLIC/120 ML Bottle TOPICAL SCH (14:00)
[2018-02-21] MEDS ORDERED: ceFAZolin Inj 2,000 MG in Sodium Chlor 0.9% Inj 80 ML IV.SIG SCH (14:00)
[2018-02-21] MEDS ORDERED: Sodium Chlor 0.9% Inj 77.5 ML, Papaverine Inj 60 MG, Nitroglycerin Inj 100 MCG, dilTIAZ... IRRIGATION SCH ×3 (14:00)
[2018-02-21] MEDS ORDERED: Sodium Chloride 0.9% Irr Bot 500 ML, ceFAZolin Inj 500 MG IRRIGATION SCH ×2 (14:00)
--- NOTE | 2018-02-21 14:09 | P.PNCV ---
- Note Subjective/Hospital Course: pt seen and evaluated, full consult to follow sts data discussed with pt RISK SCORES Procedure: Isolated CAB CALCULATE Risk of Mortality: 0.675% Renal Failure: 0.548% Permanent Stroke: 0.685% Prolonged Ventilation: 2.910% DSW Infection: 0.102% Reoperation: 2.475% Morbidity or Mortality: 5.531% Short Length of Stay: 68.024% Long Length of Stay: 1.763% Objective: Vital Signs - 24 hr 02/20/18 16:00 02/20/18 20:00 02/20/18 20:15 Temperature 98.3 F Pulse Rate 83 76 72 Respiratory Rate 16 20 Blood Pressure 166/95 H 152/91 H Pulse Oximetry 98 95 02/20/18 20:30 02/21/18 00:00 02/21/18 03:31 Temperature 98.7 F 98.4 F Pulse Rate 68 69 Respiratory Rate 16 18 18 Blood Pressure 139/77 169/89 H Pulse Oximetry 67 L 94 L 02/21/18 08:03 02/21/18 08:11 02/21/18 11:10 Temperature 99.1 F Pulse Rate 71 Respiratory Rate 20 Blood Pressure 149/92 H Pulse Oximetry 96 97 92 L Labs: Laboratory Results - last 12 hr 02/21/18 02/21/18 02/21/18 08:14 09:48 09:48 WBC 3.6 L RBC 3.86 L Hgb 13.8 Hct 40.6 MCV 105.0 H MCH 35.7 H MCHC 34.0 RDW 14.0 Plt Count 69 L MPV 9.9 Prelim Diff (Auto) Slide review pending Neut % (Auto) 59.9 Lymph % (Auto) 20.7 Morrow % (Auto) 11.5 H Eos % (Auto) 6.7 H Baso % (Auto) 1.2 Neut # (Auto) 2.1 Lymph # (Auto) 0.7 L Morrow # (Auto) 0.4 Eos # (Auto) 0.2 Baso # (Auto) 0.0 WBC Differential Manual diff final Seg Neuts % (Manual) 53 Band Neuts % (Manual) 3 Lymphocytes % (Manual) 23 Monocytes % (Manual) 7 Eosinophils % (Manual) 9 H Basophils % (Manual) 3 H Metamyelocytes % (Man) 1 Blast Cells % (Manual) 1 H Abs Neuts (Manual) 2.1 Differential Comment . Platelet Estimate Low L Platelet Morphology Normal Sodium 137 Potassium 3.8 Chloride 102 Carbon Dioxide 27.2 Anion Gap 8 BUN 9 Creatinine 0.61 Estimated GFR Greater than 89 POC Glucose 162 H Random Glucose 173 H Calcium 8.2 L D Total Bilirubin 1.2 H AST 117 H ALT 64 H Alkaline Phosphatase 70 Total Protein 7.8 D Albumin 3.5 D Triglycerides 140 Cholesterol 209 H LDL Cholesterol, Calc 145 H HDL Cholesterol 36.5 L Cholesterol/HDL Ratio 5.72 02/21/18 13:45 WBC RBC Hgb Hct MCV MCH MCHC RDW Plt Count MPV Prelim Diff (Auto) Neut % (Auto) Lymph % (Auto) Morrow % (Auto) Eos % (Auto) Baso % (Auto) Neut # (Auto) Lymph # (Auto) Morrow # (Auto) Eos # (Auto) Baso # (Auto) WBC Differential Seg Neuts % (Manual) Band Neuts % (Manual) Lymphocytes % (Manual) Monocytes % (Manual) Eosinophils % (Manual) Basophils % (Manual) Metamyelocytes % (Man) Blast Cells % (Manual) Abs Neuts (Manual) Differential Comment Platelet Estimate Platelet Morphology Sodium Potassium Chloride Carbon Dioxide Anion Gap BUN Creatinine Estimated GFR POC Glucose 214 H Random Glucose Calcium Total Bilirubin AST ALT Alkaline Phosphatase Total Protein Albumin Triglycerides Cholesterol LDL Cholesterol, Calc HDL Cholesterol Cholesterol/HDL Ratio Result Diagrams: 02/21/18 09:48 02/21/18 09:48
[2018-02-21] MEDS ORDERED: Heparin Drip 25,000 UNIT/250 ML BAG IV.CONT PRN (14:30)
[2018-02-21 14:35] LABS: Activated Partial Thrombo Time 34.3 sec (23.4-31.7); INR 1.4 Ratio; Prothrombin Time 13.7 sec (9.8-11.6)
[2018-02-21 14:37] LABS: D-Dimer 0.93 mg/L FEU (0.00-0.50)
[2018-02-21] MEDS ORDERED: Insulin Regular (For Infusion) 100 UNIT in Sodium Chlor 0.9% Inj 99 ML IV.CONT PRN (15:00)
[2018-02-21] MEDS ORDERED: ceFAZolin 2 GM Premix Inj 2 GM/50 ML PIGGYBACK IV.SIG SCH (15:15)
[2018-02-21 16:49] LABS: Bilirubin,Urine Negative (Negative); Clarity,Urine Hazy (Clear); Color,Urine Yellow (Yellw/Straw); Glucose,Urine (UA) Negative (Negative); Leukocyte Esterase,Urine Large (Negative); Nitrite,Urine Negative (Negative); Squamous Epithelial Cell,Urine 16 /hpf (0-5)
[2018-02-21 16:52] LABS: Urobilinogen,Urine 0.2 mg/dL (Less than 2)
--- NOTE | 2018-02-21 17:04 | MB ---
cc: Judy Meraz APRN DATE: 02/21/2018 HISTORY OF PRESENT ILLNESS: A 48-year-old female, patient of Dr. Montez Piedra, patient of Dr. Bar, presented to the emergency room with chest pain. She apparently had not been feeling well for the last couple of weeks. She has had some nausea. On the evening that she presented, she woke up with some burning in her chest. It lasted a couple of hours. She underwent workup in the chest pain center. Troponins were negative; however, her nuclear stress test showed moderate-sized severe irreversible anterior wall apical perfusion abnormality. She underwent cardiac catheterization by Dr. Bar this morning, which showed an ejection fraction of 70%, proximal LAD 20%, mid distal LAD 90%, the diagonal 95% and the RCA 80%. We were consulted to evaluate for coronary artery bypass grafting. PAST MEDICAL HISTORY: Includes hypertension and diabetes. PAST SURGICAL HISTORY: No past surgical history. GYNECOLOGY HISTORY: Her last menstrual period was over a year ago. ALLERGIES: INCLUDE COCONUT. HOME MEDICATIONS: Include: 1. Glyburide. 2. Metformin. 3. Amitriptyline. 4. Amlodipine. 5. Prozac. 6. Gabapentin 7. Lisinopril. FAMILY HISTORY: Mother from cancer. Father had heart disease, of heart attack at age 52. Has an older sister with heart disease and an older brother with a recent coronary artery bypass grafting. SOCIAL HISTORY: She is nonsmoker, , 1 child. She drinks approximately 3-4 triple Margaritas per night. states it is almost a bottle of tequila each evening. REVIEW OF SYSTEMS: GENERAL: No night sweats, fever, heat and cold intolerance. SKIN: No psoriasis, itching or hives. HEENT: No blurred vision, hearing loss. RESPIRATORY: Positive for recent shortness of breath. CARDIOVASCULAR: As above in the HPI. GASTROINTESTINAL: No diarrhea, vomiting. GENITOURINARY: No burning, frequency, urgency. CENTRAL NERVOUS SYSTEM: No history of TIA, CVA, seizure disorder. ENDOCRINOLOGY: Positive for diabetes. PHYSICAL EXAMINATION: VITAL SIGNS: Blood pressure 140/90, heart rate of 70, temperature max 99.1, O2 saturation 92% on room air. GENERAL: Awake, alert, in no acute distress. HEENT: Head is normocephalic, atraumatic. Pupils equal and reactive. Oral mucosa pink, moist. NECK: Supple. No JVD. HEART: Sounds S1, S2. Regular rate and rhythm. No audible rubs or gallops. LUNGS: Clear to auscultation. No wheezes, rales or rhonchi. ABDOMEN: Soft, nontender. No masses or organomegaly. EXTREMITIES: No cyanosis, clubbing, or edema. LABORATORY DATA: Shows hemoglobin of 13, hematocrit of 40, white cell count of 3.6, platelet count of 69, was 95 on admission. INR of 1.4. Fibrinogen 272. D-dimer of 0.93. HIT panel is pending. IMPRESSION: 1. This is a 48-year-old female who presented with chest pain, positive nuclear stress test, underwent cardiac catheterization with 3-vessel coronary artery disease, normal ejection fraction. 2. Hypertension. 3. ETOH abuse. 4. Elevated liver function tests, probably related to her alcoholism. 5. She has thrombocytopenia. 6. Depression and anxiety. At this time, we will need to get hematology evaluation in regards to her low platelet count. Also pending is a HIT panel since she did receive heparin during her course of admission. Will plan accordingly for surgery. Concern is also for withdrawal symptoms, for which he is on CIWA protocol and Librium. I did discuss this in length with Dr. Mckeon. Pending further plan per Dr. Velásquez and timing for surgery. FRANKLYN Brown , 04:32 PM , 04:41 PM
--- NOTE | 2018-02-21 19:18 | US ---
EXAM DATE: 02/21/2018 7:12 PM EST AGE/SEX: 48 years / Female INDICATIONS: Preop cardiac surgery. CLINICAL DATA: This is the patient's initial encounter. Patient reports that signs and symptoms have been present for 1 day and indicates a pain score of 0/10. MEDICAL/SURGICAL HISTORY: Diabetes. Hypercholesterolemia. Hypertension. . Cardiac cath. COMPARISON: No prior exams available for comparison. TECHNIQUE: Venous ultrasound of both lower extremities was performed from the inguinal ligament to t he proximal calf. Real-time, color Doppler and spectral tracing, compression and augmentation techni ques were used. FINDINGS: Right Leg: Normal compression of the deep venous system from the inguinal region to the proximal taylor f. No echogenic clot is seen. Normal response of the venous system to augmentation and respiration. Left Leg: Normal compression of the deep venous system from the inguinal region to the proximal calf . No echogenic clot is seen. Normal response of the venous system to augmentation and respiration. Other: None. CONCLUSION: The study is negative for bilateral lower extremity deep venous thrombosis. Electronically signed by: Siddharth Zambrano MD 02/21/2018 7:16 PM EST
--- NOTE | 2018-02-21 19:26 | US ---
EXAM DATE: 02/21/2018 7:14 PM EST AGE/SEX: 48 years / Female INDICATIONS: Preop cardiac surgery. CLINICAL DATA: This is the patient's initial encounter. Patient reports that signs and symptoms have been present for 1 day and indicates a pain score of 0/10. MEDICAL/SURGICAL HISTORY: Diabetes. Hypercholesterolemia. Hypertension. . Cardiac cath. COMPARISON: [facility] [place], VENOUS DOPPLER LEG BI, 02/21/2018. . MEASUREMENTS: RIGHT THIGH: Proximal:__6 mm Mid:__ 2 mm Distal:__3 mm LEFT THIGH: Proximal:__7 mm Mid:__3 mm Distal:__3 mm RIGHT CALF: Proximal:__2 mm Mid:__2 mm Distal:__2 mm LEFT CALF: Proximal:__2 mm Mid:__2 mm Distal:__2 mm FINDINGS: The venous system of the lower extremities are patent by color Doppler imaging. Measurements of the leg veins (in mm) are listed above. CONCLUSION: 1. Venous mapping study as described. Electronically signed by: Jhony Gregory MD 02/21/2018 7:24 PM EST
--- NOTE | 2018-02-21 19:31 | US ---
EXAM DATE: 02/21/2018 7:14 PM EST AGE/SEX: 48 years / Female INDICATIONS: Preop cardiac surgery. CLINICAL DATA: This is the patient's initial encounter. Patient reports that signs and symptoms have been present for 1 day and indicates a pain score of 0/10. MEDICAL/SURGICAL HISTORY: Diabetes. Hypercholesterolemia. Hypertension. . Cardiac cath. COMPARISON: No prior exams available for comparison. VELOCITY PARAMETERS: ICA/CCA Ratio: Right 59.9 , Left 71.1 ICA: Right 45.3 cm/sec, Left 88.1 cm/sec CCA: Right 59.9 cm/sec, Left 71.1 cm/sec ECA: Right 85.3 cm/sec, Left 71.3 cm/sec Vertebral: Right 27.4 cm/sec antegrade, Left 37.4 cm/sec antegrade FINDINGS: Right Carotid: Mild arteriosclerotic plaque is visualized.The waveforms are within normal limits. Left Carotid: Mild arteriosclerotic plaque is visualized. The waveforms are within normal limits. Other: None. CONCLUSION: 1. Right Internal Carotid Artery: Mild plaquing with no evidence of stenosis. 2. Left Internal Carotid Artery: Mild plaquing with no evidence of stenosis. Electronically signed by: Jhony Gregory MD 02/21/2018 7:29 PM EST
[2018-02-21] MEDS ORDERED: Phytonadione 5 MG/SWFI 5 ML Oral Syringe PO ONE (20:00)
[2018-02-21] MEDS ORDERED: Heparin 10,000 UNITS/10 ML Vial (for IV use) IV.PUSH PRN ×2 (20:08)
[2018-02-21] MEDS ORDERED: Gabapentin 300 MG Capsule PO SCH (21:00)
--- NOTE | 2018-02-21 21:07 | MB ---
cc: Umm Alva MD, Jacqueline R ARNP DATE: 02/21/2018 PRIMARY PHYSICIAN: Montez Piedra MD REFERRING PHYSICIAN: Edy Mckeon MD REFERRING PROVIDER: KELVIN Vaughn CHIEF COMPLAINT: Judy Mariya requests a consultation for Mrs. Leiva regarding thrombocytopenia in a patient with coronary artery disease. HISTORY OF PRESENT ILLNESS: Mrs. Leiva is a 48-year-old postmenopausal woman with significant past history of diabetes, hypertension, hypercholesterolemia, and family history of coronary artery disease. Her father of coronary artery disease at age 52. She presented with chest pain, dizziness, blurry vision. She reports that the pain was substernal in nature, some tightness and heaviness. There is exacerbating factor with exertion. She reports some nausea, vomiting, and palpitations. Workup included a gallbladder ultrasound on 02/20/2018 that shows mild probable hepatic steatosis. She gives a history of heavy drinking prior to her admission. She denies prior knowledge of the fatty liver or thrombocytopenia. On admission, her hemoglobin was elevated at 15.4, MCV 104.7, platelet count of 95,000. Mean platelet volume was normal. White count is in the lower limits of normal. Repeat CBC shows a white count of 3.6, hemoglobin 13.8, platelet count of 69,000. Mean platelet volume is normal. There are some immature cells. Manual differential confirms a decreased platelet count. No platelet clumps were identified. She had additional workup including troponins that were negative. Her nuclear stress test showed a moderate sized severe irreversible anterior wall apical perfusion abnormality. Cardiac catheterization revealed 3-vessel disease. She is seen by cardiothoracic surgery for coronary artery bypass grafting. Hematology/Oncology is consulted because of the thrombocytopenia in light of the possible coronary artery bypass grafting. She denies any chest pain at present. She has no nausea. She admits to the increased alcohol intake. She denies any bleeding. No melena, no bright red blood per rectum. No epistaxis or easy bruising. She denies any menopausal symptoms, but she has been amenorrheic for over a year. PAST MEDICAL HISTORY: Diabetes, hypertension, hypercholesterolemia, fatty liver, coronary artery disease, thrombocytopenia. Liver function abnormality with AST higher than ALT. PAST SURGICAL HISTORY: None. SOCIAL HISTORY: She is a nonsmoker. She is . Her son is 16 years old. She drinks 3-4 triple margaritas per night. Her reports a higher amount of alcohol than the patient reports. FAMILY HISTORY: Significant for mother who of blood cancer. Father of heart disease at the age of 52. ALLERGIES: COCONUT. CURRENT MEDICATIONS: 1. Albuterol. 2. Elavil. 3. Ecotrin. 4. Cefazolin. 5. Librium. 6. Hibiclens 7. Cymbalta. 8. Romazicon. 9. Neurontin. 10. NovoLog. 11. Lopressor. 12. Morphine. 13. Zofran p.r.n. 14. Protonix. PHYSICAL EXAMINATION: VITAL SIGNS: Temperature 99.1, heart rate 71, respiratory rate 20, blood pressure 149/92, saturation 92-97%. GENERAL: Ms. Leiva is a well-developed, well-nourished woman in no acute distress. HEENT: Her pupils are round, reactive to light and accommodation. Conjunctivae are pink. Oropharynx is clear. NECK: Supple with no adenopathy. LUNGS: Clear. CARDIOVASCULAR: Reveals normal rate and rhythm. ABDOMEN: Large but benign. No hepatosplenomegaly appreciated. EXTREMITIES: No edema. Good pulses. NEUROLOGIC: Nonfocal. LABORATORY DATA: AST 117, ALT 64, alkaline phosphatase 70, total bilirubin of 1.2. Renal function is normal. CBC as described above. PT, PTT are prolonged. Fibrinogen 272. D-dimer is elevated. ASSESSMENT AND PLAN: Mrs. Leiva is a 48-year-old woman with multiple medical problems including diabetes, hypertension, hypercholesterolemia. She presents with chest pain and diagnosed with coronary artery disease requiring coronary artery bypass grafting. Hematology/Oncology is consulted for thrombocytopenia. Her course is complicated by fatty liver secondary to alcohol use. I had a lengthy discussion about the diagnosis of thrombocytopenia and plan to exclude other causes of thrombocytopenia. HIT antibodies are pending. I will check for lupus anticoagulant and anticardiolipin antibody panel. PT, PTT are prolonged which I suspect is due to her liver disease rather than a lupus anticoagulant. Nonetheless, a lupus anticoagulant will be checked. Empiric oral vitamin K is offered. The coagulation studies will be repeated tomorrow. We discussed that immune thrombocytopenic purpura is a diagnosis of exclusion. 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 We discussed the bone marrow suppression associated with the alcohol. B12 and folate will be checked. Empiric B12 and folate will be given. Recommend to cardiothoracic surgery to administer platelets as needed for platelet count less than 50,000 or acute bleeding. I suspect, however, that she will achieve good hemostasis despite the mild thrombocytopenia. I expect also that thrombocytopenia would improve the further away she is from her last dose of alcohol. We had a lengthy discussion about the diagnosis of fatty liver and ultimately she should follow up with gastroenterology. She has liver function abnormalities in addition to imaging study consistent with fatty liver. She would be considered for additional testing and defer to Gastroenterology if a liver biopsy is needed. Ultrasound of the spleen will be coordinated. Noted Doppler ultrasound of lower extremities negative for deep vein thromboses. A thrombotic event is unlikely at least on clinical grounds. Noted is the D-dimer is elevated. MD TATYANA Bolivar/lizz , 07:40 PM , 07:55 PM
[2018-02-21] MEDS: Gabapentin 300 MG Capsule PO SCH (21:20)
[2018-02-21] MEDS: Amitriptyline 10 MG Tablet PO SCH (21:20)
[2018-02-21] MEDS: chlordiazePOXIDE 25 MG Capsule PO SCH (21:20)
[2018-02-21] MEDS: Insulin Detemir Inj 1,000 UNIT/10 ML Vial SQ SCH (21:41)
[2018-02-22] MEDS: Morphine Inj 4 MG/ML Vial IV.PUSH PRN ×4 (00:50→23:00)
[2018-02-22 06:14] LABS: Reticulocyte Percent 1.1 % (0.4-3.0)
[2018-02-22 06:15] LABS: Hematocrit 39.6 % (35.0-46.0); Hemoglobin 13.8 gm/dL (11.6-15.3); Mean Corpuscular HGB Conc 34.8 % (32.0-36.0); Mean Corpuscular Hemoglobin 35.6 pg (27.0-34.0); Mean Corpuscular Volume 102.5 fL (80.0-100.0); Mean Platelet Volume 10.3 fL (7.0-11.0); Platelet Count 73 th/mm3 (150-450); Red Blood Count 3.86 mil/mm3 (4.00-5.30); White Blood Count 3.8 th/mm3 (4.0-11.0)
[2018-02-22 06:27] LABS: Activated Partial Thrombo Time 28.2 sec (23.4-31.7); INR 1.3 Ratio; Prothrombin Time 12.7 sec (9.8-11.6)
[2018-02-22 06:45] LABS: Albumin 3.4 g/dL (3.4-5.0); Anion Gap 5 meq/L (5-15); Aspartate Aminotransferase 72 U/L (15-37); Blood Urea Nitrogen 11 mg/dL (7-18); Calcium 8.3 mg/dL (8.5-10.1); Carbon Dioxide 27.7 meq/L (21.0-32.0); Chloride 101 meq/L (98-107); Glomerular Filtration Rate Greater Than 89 mL/min (>89); Glucose,Random 219 mg/dL (74-106); Potassium 3.7 meq/L (3.5-5.1); Sodium 134 meq/L (136-145)
[2018-02-22 07:12] LABS: Alanine Aminotransferase 58 U/L (10-53); Alkaline Phosphatase 90 U/L (45-117); Folate 8.3 ng/mL (3.1-17.5); Lactate Dehydrogenase 247 U/L (84-246); Total Protein 7.7 g/dL (6.4-8.2); Vitamin B12 719 pg/mL (193-986)
[2018-02-22] MEDS: Gabapentin 300 MG Capsule PO SCH ×3 (08:09→21:39)
[2018-02-22] MEDS: Metoprolol Tartrate 25 MG Tablet PO SCH ×2 (08:09→21:39)
[2018-02-22] MEDS: chlordiazePOXIDE 25 MG Capsule PO SCH ×2 (08:10→21:39)
[2018-02-22] MEDS: Insulin NovoLOG Aspart Correctional Sugar Inj SQ SCH ×4 (08:19→22:07)
[2018-02-22] MEDS: Insulin Detemir Inj 1,000 UNIT/10 ML Vial SQ SCH ×2 (08:20→22:07)
--- NOTE | 2018-02-22 08:53 | P.PNCA ---
Subjective Interval history: Currently undergoing hematologic workup for thrombocytopenia prior to probable CABG. She had some chest discomfort with deep breathing this morning, that was not similar to the chest pain she had been having. Medications and Allergies Active Medications: Active Medications Albuterol (Duoneb Neb (Prn)) 1 ampul NEB Q4HR NEB PRN PRN Reason: SHORTNESS OF BREATH/WHEEZING Amitriptyline HCl (Elavil) 10 mg PO HS [facility] Last Admin: 02/21/18 21:20 Dose: 10 mg Aspirin (Ecotrin) 81 mg PO DAILY [facility] Last Admin: 02/22/18 08:10 Dose: 81 mg Chlordiazepoxide (Librium) 25 mg PO BID [facility] Last Admin: 02/22/18 08:10 Dose: 25 mg Chlorhexidine Gluconate (Hibiclens 4% Topical) 1 applicatio TOPICAL [employer] [facility] Stop: 02/27/18 13:57 Sodium Chloride 77.5 ml/Papaverine HCl 60 mg/Nitroglycerin 100 mcg/Diltiazem HCl 100 mg 0 ml IRRIGATION [employer]UTR[employer] [facility] Stop: 02/27/18 13:57 Sodium Chloride 500 ml/ (Cefazolin Sodium 500 mg) 0 ml [employer]ATION [employer] [facility] Stop: 02/27/18 13:59 Dextrose (D50w Vial) 50 ml IV.PUSH UNSCH PRN PRN Reason: PER HYPOGLYCEMIA PROTOCOL Duloxetine HCl (Cymbalta) 30 mg PO DAILY [facility] Last Admin: 02/22/18 08:10 Dose: 30 mg Flumazenil (Romazecon Inj) 0.2 mg IV.PUSH Q1M PRN PRN Reason: OVERSEDATION Gabapentin (Neurontin) 600 mg PO [facility] Last Admin: 02/21/18 21:20 Dose: 600 mg Gabapentin (Neurontin) 300 mg PO BID@0900,1400 [facility] Last Admin: 02/22/18 08:09 Dose: 300 mg Glucagon (Glucagon Inj) 1 mg OTHER PRN PRN PRN Reason: for Hypoglycemia Protocol Haloperidol Lactate (Haldol Inj) 1 mg IV.PUSH Q15M PRN PRN Reason: for severe agitation Insulin Human Regular 100 unit (/ Sodium Chloride) 100 mls @ 3 mls/hr IV.CONT TITRATE PRN; Protocol PRN Reason: See Protocol Cefazolin Sodium/Dextrose (Ancef 2 Gm Premix Inj) 2 gm in 50 mls @ 200 mls/hr IV.SIG [employer] [facility] Stop: 02/22/18 14:59 Insulin Aspart (Novolog Insulin Correctional Sugar Inj) 0 unit SQ ACHS [facility]; Protocol Last Admin: 02/22/18 08:19 Dose: 4 unit Insulin Detemir (Levemir Inj) 5 unit SQ BID [facility] Last Admin: 02/22/18 08:20 Dose: 5 unit Lisinopril (Prinivil) 40 mg PO DAILY [facility] Lorazepam (Ativan) 1 mg PO Q4H PRN PRN Reason: for CIWA 8-10 Lorazepam (Ativan) 2 mg PO Q2H PRN PRN Reason: for CIWA 11-14 Lorazepam (Ativan Inj) 2 mg IV.PUSH Q2H PRN PRN Reason: for CIWA 11-14 Lorazepam (Ativan Inj) 2 mg IV.PUSH Q1H PRN PRN Reason: for CIWA 15-20 Lorazepam (Ativan Inj) 2 mg IV.PUSH Q15M PRN PRN Reason: for CIWA > 20 Lorazepam (Ativan Inj) 1 mg IV.PUSH Q4H PRN PRN Reason: for CIWA 8-10 Metoprolol Tartrate (Lopressor) 25 mg PO BID [facility] Last Admin: 02/22/18 08:09 Dose: 25 mg Metoprolol Tartrate (Lopressor) 12.5 mg PO [employer] [facility] Stop: 02/27/18 13:59 Morphine Sulfate (Morphine Inj) 2 mg IV.PUSH Q4H PRN PRN Reason: PAIN SCALE 6 TO 10 Last Admin: 02/22/18 00:50 Dose: 2 mg Ondansetron HCl (Zofran Inj) 4 mg IV.PUSH Q6H PRN PRN Reason: NAUSEA Last Admin: 02/20/18 14:30 Dose: 4 mg Oxycodone/Acetaminophen (Percocet 5/325 Mg) 1 tab PO Q6H PRN PRN Reason: pain 2-10 Last Admin: 02/22/18 08:10 Dose: 1 tab Pantoprazole Sodium (Protonix) 40 mg PO DAILY [facility] Last Admin: 02/22/18 08:09 Dose: 40 mg Sodium Chloride (Ns Flush) 2 ml IV.FLUSH BID [facility] Last Admin: 02/22/18 08:20 Dose: 2 ml Sodium Chloride (Ns Flush) 2 ml IV.FLUSH PRN PRN PRN Reason: FLUSH AFTER USING IV ACCESS Allergies Allergy/AdvReac Type Severity Reaction Status Date / Time coconut Allergy Anaphylaxis Verified 02/20/18 09:26 Home Medications Medication Instructions Recorded Confirmed Type amitriptyline 10 mg PO HS 02/20/18 02/20/18 History amlodipine 5 mg PO DAILY 02/20/18 02/20/18 History duloxetine 30 mg PO DAILY 02/20/18 02/20/18 History gabapentin 600 mg PO HS 02/20/18 02/20/18 History glimepiride 4 mg PO BID 02/20/18 02/20/18 History lisinopril 20 mg PO DAILY 02/20/18 02/20/18 History metformin 500 mg PO BID 02/20/18 02/20/18 History Physical Exam Vital signs: Vital Signs 02/21/18 11:10 02/21/18 20:00 02/21/18 21:00 Temperature 98.7 F Pulse Rate 85 81 Respiratory Rate 18 Blood Pressure 169/99 H Pulse Oximetry 92 L 98 02/21/18 21:18 02/21/18 22:00 02/21/18 23:00 Temperature Pulse Rate 70 69 Respiratory Rate 18 Blood Pressure Pulse Oximetry 02/22/18 00:00 02/22/18 00:59 02/22/18 01:00 Temperature 98 F Pulse Rate 75 74 Respiratory Rate 20 18 Blood Pressure 152/96 H Pulse Oximetry 93 L 02/22/18 02:00 02/22/18 03:00 02/22/18 04:00 Temperature 98.9 F Pulse Rate 71 71 74 Respiratory Rate 17 Blood Pressure 128/78 Pulse Oximetry 97 02/22/18 05:00 02/22/18 06:00 Temperature Pulse Rate 70 71 Respiratory Rate Blood Pressure Pulse Oximetry Intake & Output 02/21/18 02/22/18 02/22/18 18:59 06:59 18:59 Intake Total 210 / 210 350 / 350 Balance 210 / 210 350 / 350 Weight 167 lb 1.766 oz Intake: IV 10 / 10 Heparin/NS PF Inj 1,000 ML @ 0 10 / 10 mls/hr .ROUTE .STK-MED ONE Rx#: [id number] Oral 350 / 350 Anesthesia Amount 200 / 200 Other: # Voids 2 Date of Last Bowel Movement 02/21/18 Narrative: GENERAL: Well-developed well-nourished. In no acute distress. NECK: No carotid bruits. No JVD. CARDIOVASCULAR: Regular rate and rhythm. No murmur appreciated. RESPIRATORY: No accessory muscle use. Clear to auscultation. Breath sounds equal bilaterally. MUSCULOSKELETAL: No clubbing or cyanosis. No edema. Right radial access site with minimal swelling, no ecchymosis, intact radial and ulnar pulses. NEUROLOGICAL: Awake and alert. Normal speech. Results 02/22/18 05:59 02/22/18 05:59 Cardiac Enzymes 02/20/18 02/20/18 02/21/18 Range/Units 11:55 14:10 09:48 AST 117 H (15-37) U/L Lactate Dehydrogenase (84-246) U/L CK-MB (CK-2) 1.7 (0.5-3.6) ng/mL Troponin I Less than 0.02 L Less than 0.02 L (0.02-0.05) ng/mL 02/22/18 Range/Units 05:59 AST 72 H (15-37) U/L Lactate Dehydrogenase 247 H (84-246) U/L CK-MB (CK-2) (0.5-3.6) ng/mL Troponin I (0.02-0.05) ng/mL Coagulation 02/21/18 02/22/18 Range/Units 13:55 05:59 PT 13.7 H 12.7 H (9.8-11.6) sec APTT 34.3 H 28.2 (23.4-31.7) sec Lipids 02/21/18 Range/Units 09:48 Triglycerides 140 (42-150) mg/dL Cholesterol 209 H (120-200) mg/dL HDL Cholesterol 36.5 L (40.0-60.0) mg/dL Cholesterol/HDL Ratio 5.72 Ratio CBC 02/21/18 02/22/18 Range/Units 09:48 05:59 WBC 3.6 L 3.8 L (4.0-11.0) th/mm3 RBC 3.86 L 3.86 L (4.00-5.30) mil/mm3 Hgb 13.8 13.8 (11.6-15.3) gm/dL Hct 40.6 39.6 (35.0-46.0) % Plt Count 69 L 73 L (150-450) th/mm3 Neut # (Auto) 2.1 (1.8-7.7) th/mm3 Lymph # (Auto) 0.7 L (1.0-4.8) th/mm3 [place] # (Auto) 0.4 (0.0-0.9) th/mm3 Eos # (Auto) 0.2 (0.0-0.4) th/mm3 Baso # (Auto) 0.0 (0.0-0.2) th/mm3 Comprehensive Metabolic Panel 02/21/18 02/22/18 Range/Units 09:48 05:59 Sodium 137 134 L (136-145) meq/L Potassium 3.8 3.7 (3.5-5.1) meq/L Chloride 102 101 (98-107) meq/L Carbon Dioxide 27.2 27.7 (21.0-32.0) meq/L BUN 9 11 (7-18) mg/dL Creatinine 0.61 0.69 (0.50-1.00) mg/dL Calcium 8.2 L D 8.3 L (8.5-10.1) mg/dL AST 117 H 72 H (15-37) U/L ALT 64 H 58 H (10-53) U/L Alkaline Phosphatase 70 90 (45-117) U/L Total Protein 7.8 D 7.7 (6.4-8.2) g/dL Albumin 3.5 D 3.4 (3.4-5.0) g/dL Intake and Output 02/21/18 02/22/18 02/22/18 22:59 06:59 14:59 Intake Total 350 / 350 Balance 350 / 350 Intake: Oral 350 / 350 Other: # Voids 2 Date of Last Bowel Movement 02/21/18 02/21/18 Weight 167 lb 1.766 oz - Imaging and Cardiology Imaging: Impressions Gallbladder Ultrasound 02/20/18 11:54 CONCLUSION: Mild probable hepatic steatosis. Myocardial Perfusion Scan Nuc Med 02/20/18 14:59 CONCLUSION: Moderate sized moderate severity reversible anterior wall and apical perfusion abnormality. Carotid Doppler Study 02/21/18 13:57 CONCLUSION: 1. Right Internal Carotid Artery: Mild plaquing with no evidence of stenosis. 2. Left Internal Carotid Artery: Mild plaquing with no evidence of stenosis. Lower Extremity Ultrasound 02/21/18 13:57 CONCLUSION: 1. Venous mapping study as described. Venous Doppler Study 02/21/18 13:57 CONCLUSION: The study is negative for bilateral lower extremity deep venous thrombosis. Assessment and Plan - Assessment (1) Chest pain Code(s): R07.9 - Chest pain, unspecified Status: Acute - Plan 48 yo F with hypertension, diabetes, and family history of heart disease that presented with complaint of chest discomfort. CAD with angina: [facility] 02/22 showed severe LAD and diagonal branch bifurcation stenosis and severe RCA stenosis. CT surgery consulted for CABG, preoperative workup in progress. Continue aspirin and beta-lilia. LFT elevation possibly due to alcohol use or hepatic steatosis, statin on hold. Subclavian stenosis: Seen on [facility]. Aorta CT ordered for further eval. Thrombocytopenia: Possibly due to splenomegaly. Hematology on board.
--- NOTE | 2018-02-22 09:58 | US ---
EXAM DATE: 02/22/2018 9:53 AM EST AGE/SEX: 48 years / Female INDICATIONS: Thrombocytopenia. Evaluate size. CLINICAL DATA: This is the patient's initial encounter. Patient reports that signs and symptoms have been present for 1 day and indicates a pain score of 8/10. MEDICAL/SURGICAL HISTORY: Diabetes. Hypercholesterolemia. Hypertension. . Cardiac cath. [place] [facility] [place] 02/20/2018. . MEASUREMENTS: Spleen: 12.8 cm. FINDINGS: Spleen: No focal lesion. Other: None. CONCLUSION: 1. The examination demonstrates normal echotexture with the spleen length of 12.8 cm. This is at the upper limits of normal in size. Electronically signed by: Tadeo Gunderson MD 02/22/2018 9:57 AM EST
--- NOTE | 2018-02-22 14:03 | P.PNCV ---
- Note Subjective/Hospital Course: A 48-year-old female, patient of Dr. Montez Piedra, patient of Dr. Bar, presented to the emergency room with chest pain. She apparently had not been feeling well for the last couple of weeks. She has had some nausea. On the evening that she presented, she woke up with some burning in her chest. It lasted a couple of hours. She underwent workup in the chest pain center. Troponins were negative; however, her nuclear stress test showed moderate-sized severe irreversible anterior wall apical perfusion abnormality. She underwent cardiac catheterization by Dr. Bar this morning, which showed an ejection fraction of 70%, proximal LAD 20%, mid distal LAD 90%, the diagonal 95% and the RCA 80%. We were consulted to evaluate for coronary artery bypass grafting. She was also found to have a diagnosis of thrombocytopenia, fatty liver secondary to alcohol use. Hematology has been consulted, recommendation to administer platelets as needed for platelet count less than 50,000 or acute bleeding. PMH: DM HTN 02/22 HIT panel and trisha neg PLT improved to 73 on scheduled Librium, no signs of withdrawal await results fo CT chest aorta , eval for left subclavian stenosis if stable , will eval for surgery monday or monday I Objective: Vital Signs - 24 hr 02/21/18 20:00 02/21/18 21:00 02/21/18 21:18 Temperature 98.7 F Pulse Rate 85 81 Respiratory Rate 18 18 Blood Pressure 169/99 H Pulse Oximetry 98 02/21/18 22:00 02/21/18 23:00 02/22/18 00:00 Temperature 98 F Pulse Rate 70 69 75 Respiratory Rate 20 Blood Pressure 152/96 H Pulse Oximetry 93 L 02/22/18 00:59 02/22/18 01:00 02/22/18 02:00 Temperature Pulse Rate 74 71 Respiratory Rate 18 Blood Pressure Pulse Oximetry 02/22/18 03:00 02/22/18 04:00 02/22/18 05:00 Temperature 98.9 F Pulse Rate 71 74 70 Respiratory Rate 17 Blood Pressure 128/78 Pulse Oximetry 97 02/22/18 06:00 02/22/18 07:00 02/22/18 08:00 Temperature 98.2 F Pulse Rate 71 79 71 Respiratory Rate 16 Blood Pressure 134/83 Pulse Oximetry 97 02/22/18 09:00 02/22/18 09:58 02/22/18 10:58 Temperature Pulse Rate 62 64 Respiratory Rate 16 Blood Pressure Pulse Oximetry 02/22/18 11:00 Temperature Pulse Rate 62 Respiratory Rate Blood Pressure Pulse Oximetry GENERAL: SKIN: Warm and dry. HEAD: Normocephalic. EYES: No scleral icterus. No injection or drainage. NECK: Supple, trachea midline. No JVD or lymphadenopathy. CARDIOVASCULAR: Regular rate and rhythm without murmurs, gallops, or rubs. RESPIRATORY: Breath sounds equal bilaterally. No accessory muscle use. GASTROINTESTINAL: Abdomen soft, non-tender, nondistended. MUSCULOSKELETAL: No cyanosis, or edema. BACK: Nontender without obvious deformity. No CVA tenderness. Labs: Laboratory Results - last 12 hr 02/21/18 02/22/18 02/22/18 15:01 05:59 05:59 WBC 3.8 L RBC 3.86 L Hgb 13.8 Hct 39.6 MCV 102.5 H MCH 35.6 H MCHC 34.8 RDW 14.0 Plt Count 73 L MPV 10.3 Smear Path Review Retic Count Absolute Retic PT INR APTT Sodium 134 L Potassium 3.7 Chloride 101 Carbon Dioxide 27.7 Anion Gap 5 BUN 11 Creatinine 0.69 Estimated GFR Greater than 89 POC Glucose Random Glucose 219 H Calcium 8.3 L Total Bilirubin 0.8 AST 72 H ALT 58 H Alkaline Phosphatase 90 Lactate Dehydrogenase 247 H Total Protein 7.7 Albumin 3.4 Vitamin B12 719 Folate 8.3 Heparin Dep Plt Ab OD 0.484 Hep-Induced Plt Ab Trisha Negative 02/22/18 02/22/18 02/22/18 05:59 05:59 08:08 WBC RBC Hgb Hct MCV MCH MCHC RDW Plt Count MPV Smear Path Review Retic Count 1.1 Absolute Retic 44.0 PT 12.7 H INR 1.3 APTT 28.2 Sodium Potassium Chloride Carbon Dioxide Anion Gap BUN Creatinine Estimated GFR POC Glucose 227 H Random Glucose Calcium Total Bilirubin AST ALT Alkaline Phosphatase Lactate Dehydrogenase Total Protein Albumin Vitamin B12 Folate Heparin Dep Plt Ab OD Hep-Induced Plt Ab Trisha 02/22/18 11:37 WBC RBC Hgb Hct MCV MCH MCHC RDW Plt Count MPV Smear Path Review Retic Count Absolute Retic PT INR APTT Sodium Potassium Chloride Carbon Dioxide Anion Gap BUN Creatinine Estimated GFR POC Glucose 226 H Random Glucose Calcium Total Bilirubin AST ALT Alkaline Phosphatase Lactate Dehydrogenase Total Protein Albumin Vitamin B12 Folate Heparin Dep Plt Ab OD Hep-Induced Plt Ab Trisha Result Diagrams: 02/22/18 05:59 02/22/18 05:59 - Plan (3) Diabetes on low dose ASA hold for now await CT chest continue CIWA protocol , scheduled Librium for now FEV1 2.24 carotid ok eval for surgery in am second case or Monday (3) Diabetes Qualifiers: Diabetes mellitus type: type 2
--- NOTE | 2018-02-22 14:17 | P.PNIM ---
Subjective Interval history: Pt reports that she is no longer having chest pain She is tolerating oral intake Physical Exam Vital signs: Last Vital Signs Temp 98.2 F 02/22/18 08:00 Pulse 62 02/22/18 11:00 Resp 16 02/22/18 10:58 BP 134/83 02/22/18 08:00 Pulse Ox 97 02/22/18 08:00 Narrative: General: NAD, AAOx3 Chest: CTA Cardiac: Regular Abd: +BS, soft ND/NT Ext: No edema Results Labs CBC & Chem 7: 02/27/18 04:00 02/27/18 04:00 Imaging Chest X-Ray 02/20/18 07:28 CONCLUSION: Negative examination. Gallbladder Ultrasound 02/20/18 11:54 CONCLUSION: Mild probable hepatic steatosis. Myocardial Perfusion Scan Nuc Med 02/20/18 14:59 CONCLUSION: Moderate sized moderate severity reversible anterior wall and apical perfusion abnormality. Carotid Doppler Study 02/21/18 13:57 CONCLUSION: 1. Right Internal Carotid Artery: Mild plaquing with no evidence of stenosis. 2. Left Internal Carotid Artery: Mild plaquing with no evidence of stenosis. Lower Extremity Ultrasound 02/21/18 13:57 CONCLUSION: 1. Venous mapping study as described. Venous Doppler Study 02/21/18 13:57 CONCLUSION: The study is negative for bilateral lower extremity deep venous thrombosis. Spleen Ultrasound 02/22/18 08:00 CONCLUSION: 1. The examination demonstrates normal echotexture with the spleen length of 12.8 cm. This is at the upper limits of normal in size. Assessment and Plan Assessment (1) Chest pain: Code(s): R07.9 - Chest pain, unspecified Status: Acute (2) Hypertension: Code(s): I10 - Essential (primary) hypertension Status: Chronic (3) Diabetes: Code(s): E11.9 - Type 2 diabetes mellitus without complications Status: Chronic (4) Alcohol abuse: Code(s): F10.10 - Alcohol abuse, uncomplicated Status: Chronic (5) Elevated LFTs: Code(s): R94.5 - Abnormal results of liver function studies Status: Acute (6) Thrombocytopenia: Code(s): D69.6 - Thrombocytopenia, unspecified Status: Acute (7) CAD (coronary artery disease), [place] coronary artery: Code(s): I25.10 - Atherosclerotic heart disease of [place] coronary artery without angina pectoris Status: Acute Plan Chest pain Abnormal stress test - Pt is a 48 y/o female with hypertension, diabetes, and family history of heart disease that was admitted to the [facility] on 02/20/18 with complaints of chest discomfort. Patient states that she just has not been feeling well last approximately 3 weeks. States she has been vomiting quite often. Out of the 3 weeks she has probably had 9 or 10 days of vomiting multiple times each of those days. When this occurs she has a discomfort in the center/right side of her chest radiating to the neck. The discomfort is described as a burning, lasting about 30 minutes and will typically resolve on its own. At times she has become short of breath and diaphoretic. The night prior to admission she developed the same burning pain which lasted longer than it had previously. - In the [facility] she had three sets of CE which were negative - Nuclear stress test (02/20/18) - Moderate sized moderate severity reversible anterior wall and apical perfusion abnormality. - Cardiology was consulted and pt was transferred to the Hospitalist team - Pt underwent LHC (02/21/18) --> Ejection fraction of 70%, proximal LAD 20%, mid distal LAD 90%, the diagonal 95% and the RCA 80%. - CTS was consulted and pt is tentatively planned for CABG either tomorrow or Monday - Carotid Doppler Study (02/21/18) 1. Right Internal Carotid Artery: Mild plaquing with no evidence of stenosis. 2. Left Internal Carotid Artery: Mild plaquing with no evidence of stenosis. - Cont. ASA 325mg daily - She is on Metoprolol 25mg BID, Lisinopril 20mg daily and Norvasc 5mg daily - Monitor vitals closely Diabetes mellitus, type 2 Peripheral neuropathy - At home pt is on Amaryl 4mg po BID and Metformin 500mg BID, which are recent increases in her doses - Her last Hgb A1C in August 2017 was 11.3% but has been as high as 13% in 2017. - She has been noncompliant with referrals to Endocrinology. - Currently she is on NovoLog SSI - Levemir 5 units BID added on 02/21. This is being held for NPO after MN for possible surgery on 02/23 - She takes Gabapentin 600mg HS and Cymbalta 30mg daily for her neuropathy which she does not feel helps much. The source of her neuropathy is unclear. She is supposed to be having EMG studies done as an outpt which she missed her appt for that. Per Dr. French outpt notes pt will likely require doses of Gabapentin upwards of 1800mg to get effect. - Gabapentin 300mg BID @ 0900, 1400 and continue her evening dose 600mg HS. - Added Percocet 5/325 Q6H PRN on 02/21 but this is not providing adequate pain control. Frequency increased to Q4H PRN and she has Morphine 2mg IV Q4H PRN as well. - In review of outpt records she had been prescribed Lyrica 50mg TID in the past but she could not afford this. Alcohol abuse - [facility] protocol - Librium 25mg BID, pts last alcoholic beverage was on 02/18/18. - Monitor for DTs Thrombocytopenia Fatty liver likely secondary to alcohol use Splenomegaly - Gallbladder Ultrasound (02/20/18) --> Mild probable hepatic steatosis - Spleen Ultrasound (02/22/18) --> The examination demonstrates normal echotexture with the spleen length of 12.8 cm. This is at the upper limits of normal in size. - Labs at admission noted Platelet count of 95,000. Repeat labs on 02/21 with Platelet count of 69,000 --> 73,000 (02/22/18) - Hematology was consulted for further recommendations regarding the thrombocytopenia which was felt to most likely be related to her fatty liver secondary to alcohol abuse - HIT antibodies are pending - Lupus anticoagulant and anticardiolipin antibody panel are pending. - PT, PTT are prolonged which is suspected to be due to her liver disease Attending Attestation The exam, history, and the medical decision-making described in the above note were completed with the assistance of the mid-level provider. I reviewed and agree with the findings presented. I attest that I had a [id number] encounter with the patient on the same day, and personally performed and documented my assessment and findings in the medical record. Patient examined. Assessment and plan formulated with Deborah Townsend PA-C. I agree with the above. Case d/w [facility], Dr. Carolyn Velásquez. CABG will be deferred to February 26. This should give time for the pt's platelet count to recover & for the pt to be medically maximized prior to surgery. Progress Note: Quality VTE Deep Vein Thrombosis/Pulmonary Embolism Present on Admission: No _ (1) Diabetes Qualifiers: Chronic kidney disease stage: Diabetes mellitus complication detail: Diabetes mellitus complication status: Diabetes mellitus marine oil terminal superintendent insulin use : Diabetes mellitus macular edema: Diabetes mellitus type: type 2 Diabetic retinopathy severity: Laterality: Proliferative retinopathy type: (2) CAD (coronary artery disease), [place] coronary artery Qualifiers: Associated angina: [place] vs. transplanted heart: (3) Chest pain Qualifiers: Chest pain type: Ischemic chest pain type: (4) Hypertension Qualifiers: Hypertension type:
--- NOTE | 2018-02-22 14:27 | ECG ---
Date Performed: 02/20/2018 Time Performed: 14:37:28 PTAGE: 48 years EKG: Sinus rhythm NORMAL ECG PREVIOUS TRACING : 02/20/2018 12.07 Since previous tracing, no significant change noted DOCTOR: Adarsh Peters Interpretating Date/Time 02/22/2018 14:26:06
--- NOTE | 2018-02-22 15:33 | P.PNONC ---
Subjective Interval history: Patient lying in bed in no acute distress. Her is at the bedside. She is anxious to leave the hospital. She states she has not a patient person. She denies any chest pain, shortness of breath or bleeding. Denies leg pain. Objective Vital Signs/Intake & Output: Vital Signs 02/21/18 20:00 02/21/18 21:00 02/21/18 21:18 Temperature 98.7 F Pulse Rate 85 81 Respiratory Rate 18 18 Blood Pressure 169/99 H Pulse Oximetry 98 02/21/18 22:00 02/21/18 23:00 02/22/18 00:00 Temperature 98 F Pulse Rate 70 69 75 Respiratory Rate 20 Blood Pressure 152/96 H Pulse Oximetry 93 L 02/22/18 00:59 02/22/18 01:00 02/22/18 02:00 Temperature Pulse Rate 74 71 Respiratory Rate 18 Blood Pressure Pulse Oximetry 02/22/18 03:00 02/22/18 04:00 02/22/18 05:00 Temperature 98.9 F Pulse Rate 71 74 70 Respiratory Rate 17 Blood Pressure 128/78 Pulse Oximetry 97 02/22/18 06:00 02/22/18 07:00 02/22/18 08:00 Temperature 98.2 F Pulse Rate 71 79 71 Respiratory Rate 16 Blood Pressure 134/83 Pulse Oximetry 97 02/22/18 09:00 02/22/18 09:58 02/22/18 10:58 Temperature Pulse Rate 62 64 Respiratory Rate 16 Blood Pressure Pulse Oximetry 02/22/18 11:00 02/22/18 12:00 02/22/18 13:00 Temperature 98.1 F Pulse Rate 62 72 70 Respiratory Rate 16 Blood Pressure 136/83 Pulse Oximetry 96 02/22/18 14:00 02/22/18 14:39 Temperature Pulse Rate 78 72 Respiratory Rate Blood Pressure Pulse Oximetry Intake & Output 02/21/18 02/22/18 02/22/18 18:59 06:59 18:59 Intake Total 210 / 210 350 / 350 Balance 210 / 210 350 / 350 Weight 75.8 kg Intake: IV 10 / 10 Heparin/NS PF Inj 1,000 ML @ 0 10 / 10 mls/hr .ROUTE .[facility] Rx#: [id number] Oral 350 / 350 Anesthesia Amount 200 / 200 Other: # Voids 2 Date of Last Bowel Movement 02/21/18 02/21/18 Result Diagrams: 02/22/18 05:59 02/22/18 05:59 Laboratory Results: Laboratory Results - last 24 hr 02/20/18 02/21/18 02/21/18 07:42 12:06 13:57 WBC RBC Hgb Hct MCV MCH MCHC RDW Plt Count MPV Smear Path Review Retic Count Absolute Retic PT INR APTT Sodium Potassium Chloride Carbon Dioxide Anion Gap BUN Creatinine Estimated GFR POC Glucose Random Glucose Hemoglobin A1c 10.1 H Calcium Total Bilirubin AST ALT Alkaline Phosphatase Lactate Dehydrogenase Total Protein Albumin Vitamin B12 Folate Urine Color Yellow Urine Clarity Hazy H Urine pH 6.0 Ur Specific [place] Greater than 1.060 H Urine Protein Negative Urine Glucose (UA) Negative Urine Ketones 20 Urine Occult Blood Negative Urine Nitrate Negative Urine Bilirubin Negative Urine Urobilinogen 0.2 Ur Leukocyte Esterase Large H Urine WBC 1 Ur Squamous Epith Cells 16 Micro UA Comment Culture not ind Ur Microscopic Review Not Reportable Urine Culture Comments Culture not ind Nasal Screen MRSA (PCR) Not detected Heparin Dep Plt Ab OD Hep-Induced Plt Ab Trisha 02/21/18 02/21/18 02/21/18 15:01 18:57 21:31 WBC RBC Hgb Hct MCV MCH MCHC RDW Plt Count MPV Smear Path Review Retic Count Absolute Retic PT INR APTT Sodium Potassium Chloride Carbon Dioxide Anion Gap BUN Creatinine Estimated GFR POC Glucose 195 H 191 H Random Glucose Hemoglobin A1c Calcium Total Bilirubin AST ALT Alkaline Phosphatase Lactate Dehydrogenase Total Protein Albumin Vitamin B12 Folate Urine Color Urine Clarity Urine pH Ur Specific [place] Urine Protein Urine Glucose (UA) Urine Ketones Urine Occult Blood Urine Nitrate Urine Bilirubin Urine Urobilinogen Ur Leukocyte Esterase Urine WBC Ur Squamous Epith Cells Micro UA Comment Ur Microscopic Review Urine Culture Comments Nasal Screen MRSA (PCR) Heparin Dep Plt Ab OD 0.484 Hep-Induced Plt Ab Trisha Negative 02/22/18 02/22/18 02/22/18 05:59 05:59 05:59 WBC 3.8 L RBC 3.86 L Hgb 13.8 Hct 39.6 MCV 102.5 H MCH 35.6 H MCHC 34.8 RDW 14.0 Plt Count 73 L MPV 10.3 Smear Path Review Retic Count Absolute Retic PT 12.7 H INR 1.3 APTT 28.2 Sodium 134 L Potassium 3.7 Chloride 101 Carbon Dioxide 27.7 Anion Gap 5 BUN 11 Creatinine 0.69 Estimated GFR Greater than 89 POC Glucose Random Glucose 219 H Hemoglobin A1c Calcium 8.3 L Total Bilirubin 0.8 AST 72 H ALT 58 H Alkaline Phosphatase 90 Lactate Dehydrogenase 247 H Total Protein 7.7 Albumin 3.4 Vitamin B12 719 Folate 8.3 Urine Color Urine Clarity Urine pH Ur Specific [place] Urine Protein Urine Glucose (UA) Urine Ketones Urine Occult Blood Urine Nitrate Urine Bilirubin Urine Urobilinogen Ur Leukocyte Esterase Urine WBC Ur Squamous Epith Cells Micro UA Comment Ur Microscopic Review Urine Culture Comments Nasal Screen MRSA (PCR) Heparin Dep Plt Ab OD Hep-Induced Plt Ab Trisha 02/22/18 02/22/18 02/22/18 05:59 08:08 11:37 WBC RBC Hgb Hct MCV MCH MCHC RDW Plt Count MPV Smear Path Review Retic Count 1.1 Absolute Retic 44.0 PT INR APTT Sodium Potassium Chloride Carbon Dioxide Anion Gap BUN Creatinine Estimated GFR POC Glucose 227 H 226 H Random Glucose Hemoglobin A1c Calcium Total Bilirubin AST ALT Alkaline Phosphatase Lactate Dehydrogenase Total Protein Albumin Vitamin B12 Folate Urine Color Urine Clarity Urine pH Ur Specific [place] Urine Protein Urine Glucose (UA) Urine Ketones Urine Occult Blood Urine Nitrate Urine Bilirubin Urine Urobilinogen Ur Leukocyte Esterase Urine WBC Ur Squamous Epith Cells Micro UA Comment Ur Microscopic Review Urine Culture Comments Nasal Screen MRSA (PCR) Heparin Dep Plt Ab OD Hep-Induced Plt Ab Trisha Imaging Studies: Impressions Carotid Doppler Study 02/21/18 13:57 CONCLUSION: 1. Right Internal Carotid Artery: Mild plaquing with no evidence of stenosis. 2. Left Internal Carotid Artery: Mild plaquing with no evidence of stenosis. Lower Extremity Ultrasound 02/21/18 13:57 CONCLUSION: 1. Venous mapping study as described. Venous Doppler Study 02/21/18 13:57 CONCLUSION: The study is negative for bilateral lower extremity deep venous thrombosis. Spleen Ultrasound 02/22/18 08:00 CONCLUSION: 1. The examination demonstrates normal echotexture with the spleen length of 12.8 cm. This is at the upper limits of normal in size. Medications: Active Medications Generic Name Dose Route Start Last Admin Trade Name Freq PRN Reason Stop Dose Admin Amitriptyline HCl 10 mg 02/20/18 21:00 02/21/18 21:20 Elavil PO 10 mg HS KAMRYN Administration Aspirin 81 mg 02/21/18 10:54 02/22/18 08:10 Ecotrin PO 81 mg DAILY KAMRYN Administration Chlordiazepoxide 25 mg 02/21/18 21:00 02/22/18 08:10 Librium PO 25 mg BID KAMRYN Administration Duloxetine HCl 30 mg 02/21/18 09:00 02/22/18 08:10 Cymbalta PO 30 mg DAILY KAMRYN Administration Gabapentin 600 mg 02/20/18 21:00 02/21/18 21:20 Neurontin PO 600 mg HS KAMRYN Administration Gabapentin 300 mg 02/22/18 09:00 02/22/18 14:12 Neurontin PO 300 mg BID@0900,1400 KAMRYN Administration Insulin Aspart 0 unit 02/21/18 08:00 02/22/18 12:32 Novolog Insulin Correctional Sugar Inj SQ 4 unit ACHS KAMRYN Administration Protocol Metoprolol Tartrate 25 mg 02/20/18 21:00 02/22/18 08:09 Lopressor PO 25 mg BID KAMRYN Administration Morphine Sulfate 2 mg 02/20/18 17:39 02/22/18 10:25 Morphine Inj IV.PUSH 2 mg Q4H PRN Administration PAIN SCALE 6 TO 10 Ondansetron HCl 4 mg 02/20/18 11:53 02/20/18 14:30 Zofran Inj IV.PUSH 4 mg Q6H PRN Administration NAUSEA Oxycodone/Acetaminophen 1 tab 02/21/18 16:49 02/22/18 14:08 Percocet 5/325 Mg PO 1 tab Q6H PRN Administration pain 2-10 Pantoprazole Sodium 40 mg 02/20/18 17:30 02/22/18 08:09 Protonix PO 40 mg DAILY KAMRYN Administration Sodium Chloride 2 ml 02/21/18 21:00 02/22/18 08:20 Ns Flush IV.FLUSH 2 ml BID KAMRYN Administration Objective Remarks: GENERAL: Well-nourished, well-developed middle-aged female patient, in no acute distress. SKIN: Warm and dry. HEAD: Normocephalic. EYES: No scleral icterus. No injection or drainage. NECK: Supple, trachea midline. CARDIOVASCULAR: Regular rate and rhythm without murmurs. RESPIRATORY: Breath sounds equal bilaterally. No accessory muscle use. GASTROINTESTINAL: Abdomen large, soft, non-tender, nondistended. EXTREMITIES: No cyanosis, or edema. MUSCULOSKELETAL: Adequate muscle tone. NEUROLOGICAL: No obvious focal deficit. Awake, alert, and oriented x3. PSYCHIATRIC: Appropriate mood and affect; insight and judgment normal. Assessment/Plan - Plan Ms. Leiva is a 48-year-old female patient with multiple medical problems including diabetes, hypertension, high cholesterol and fatty liver secondary to alcohol use. Recently presented to the hospital with chest pain and diagnosed with coronary artery disease requiring coronary artery bypass grafting. Hematology was consulted for thrombocytopenia. Recommendations: 1. Thrombocytopenia, possibly secondary to fatty liver and alcoholism, platelet count increased to 73,000 today. Ultrasound negative for DVT. HIT trisha negative. Peripheral blood smear is pending. B12 and folate are both normal. Ultrasound of spleen revealed a normal echotexture with the spleen length of 12.8 cm. This is the upper limits of normal in size. 2. Fatty liver disease, patient should follow-up with gastroenterology. 3. Repeat CBC in the a.m.
--- NOTE | 2018-02-22 16:31 | CT ---
EXAM DATE: 02/22/2018 4:06 PM EST AGE/SEX: 48 years / Female INDICATIONS: Left subclavian stenosis. Preoperative CABG. CLINICAL DATA: This is the patient's initial encounter. Patient reports that signs and symptoms have been present for 1 day and indicates a pain score of 0/10. MEDICAL/SURGICAL HISTORY: Hypercholesterolemia. Hypertension. None. RADIATION DOSE: 16.92 CTDI (mGy) [place] [facility] [place]21/2018. . TECHNIQUE: Volumetric scanning was performed using a multi-row detector CT scanner during bolus infu luann of 100 ml Omnipaque 350 (iohexol) nonionic water-soluble contrast as a single exam dose. The d melba was post processed with a variety of visualization algorithms including full volume maximum inten sity projection, multi-planar sliding thin slab reformation, curved planar reformation, and surface r endering techniques. Using automated exposure control and adjustment of the mA and/or kV according t o patient size, radiation dose was kept as low as reasonably achievable to obtain optimal diagnostic quality images. DICOM format image data is available electronically for review and comparison. FINDINGS: The thoracic aorta is normal in caliber and appearance. No evidence of stenosis, aneurysm or dissecti on. The arch vessels are intact and widely patent. Truncus anatomy is present. There is no evidence o f significant subclavian stenosis on either side. The left internal mammary artery is a widely patent healthy-appearing vessel. In the abdomen, the aorta and iliacs are widely patent. The hypogastrics are patent bilaterally. The visualized proximal thigh vessels are intact. The aortic visceral vessels are normal in appearance. S pecifically, the celiac, SMA and renal arteries are widely patent. The B[place] is patent. The pulmonary vessels are well opacified and are normal in caliber without filling defects to suggest embolism. CONCLUSION: Unremarkable CTA evaluation. Specifically no evidence of subclavian stenosis as questioned. Electronically signed by: Siddharth Zambrano MD 02/22/2018 4:29 PM EST
[2018-02-22 17:21] LABS: Hemoglobin A1c 10.1 % (4.3-6.0)
[2018-02-22] MEDS: Amitriptyline 10 MG Tablet PO SCH (21:38)
[2018-02-23] MEDS: Insulin NovoLOG Aspart Correctional Sugar Inj SQ SCH ×4 (08:29→20:41)
[2018-02-23] MEDS: Insulin Detemir Inj 1,000 UNIT/10 ML Vial SQ SCH ×2 (08:30→20:41)
[2018-02-23] MEDS: Gabapentin 300 MG Capsule PO SCH ×3 (08:32→17:03)
[2018-02-23] MEDS: Metoprolol Tartrate 25 MG Tablet PO SCH ×2 (08:32→20:42)
[2018-02-23] MEDS: chlordiazePOXIDE 25 MG Capsule PO SCH ×2 (08:33→21:18)
[2018-02-23 08:41] LABS: Hematocrit 42.4 % (35.0-46.0); Hemoglobin 14.5 gm/dL (11.6-15.3); Mean Corpuscular HGB Conc 34.2 % (32.0-36.0); Mean Corpuscular Hemoglobin 35.5 pg (27.0-34.0); Mean Corpuscular Volume 103.6 fL (80.0-100.0); Mean Platelet Volume 10.4 fL (7.0-11.0); Platelet Count 85 th/mm3 (150-450); Red Blood Count 4.09 mil/mm3 (4.00-5.30); Red Cell Distribution Width 14.1 % (11.6-17.2)
[2018-02-23] MEDS: Docusate Sodium 100 MG Capsule PO SCH ×2 (11:33→20:40)
--- NOTE | 2018-02-23 13:25 | P.PNIM ---
Subjective Interval history: Pt denies cp, sob, or diaphoresis. Pt is tolerating PO intake without n/v/d. Physical Exam Vital signs: Last Vital Signs Temp 98.0 F 02/23/18 12:00 Pulse 65 02/23/18 12:00 Resp 16 02/23/18 12:00 BP 105/76 02/23/18 12:00 Pulse Ox 93 L 02/23/18 12:00 Narrative: General: NAD, AAOx3 Chest: CTA Cardiac: Regular Abd: +BS, soft ND/NT Ext: No edema Results Labs CBC & Chem 7: 02/23/18 07:29 02/22/18 05:59 Assessment and Plan Assessment (1) Chest pain: Code(s): R07.9 - Chest pain, unspecified Status: Acute (2) Hypertension: Code(s): I10 - Essential (primary) hypertension Status: Acute (3) Diabetes: Code(s): E11.9 - Type 2 diabetes mellitus without complications Status: Chronic (4) Alcohol abuse: Code(s): F10.10 - Alcohol abuse, uncomplicated Status: Chronic (5) Elevated LFTs: Code(s): R94.5 - Abnormal results of liver function studies Status: Acute (6) Thrombocytopenia: Code(s): D69.6 - Thrombocytopenia, unspecified Status: Acute (7) CAD (coronary artery disease), [place] coronary artery: Code(s): I25.10 - Atherosclerotic heart disease of [place] coronary artery without angina pectoris Status: Acute Plan Chest pain Abnormal stress test - Pt is a 48 y/o female with hypertension, diabetes, and family history of heart disease that was admitted to the [facility] on 02/20/18 with complaints of chest discomfort. Patient states that she just has not been feeling well last approximately 3 weeks. States she has been vomiting quite often. Out of the 3 weeks she has probably had 9 or 10 days of vomiting multiple times each of those days. When this occurs she has a discomfort in the center/right side of her chest radiating to the neck. The discomfort is described as a burning, lasting about 30 minutes and will typically resolve on its own. At times she has become short of breath and diaphoretic. The night prior to admission she developed the same burning pain which lasted longer than it had previously. - In the [facility] she had three sets of CE which were negative - Nuclear stress test (02/20/18) - Moderate sized moderate severity reversible anterior wall and apical perfusion abnormality. - Cardiology was consulted and pt was transferred to the Hospitalist team - Pt underwent LHC (02/21/18) --> Ejection fraction of 70%, proximal LAD 20%, mid distal LAD 90%, the diagonal 95% and the RCA 80%. - Carotid Doppler Study (02/21/18) 1. Right Internal Carotid Artery: Mild plaquing with no evidence of stenosis. 2. Left Internal Carotid Artery: Mild plaquing with no evidence of stenosis. - Cont. ASA 325mg daily - Metoprolol 25mg BID, Lisinopril 20mg daily and Norvasc 5mg daily - Case d/w [facility], Dr. Carolyn Velásquez (02/22). - Will proceed with CABG on 02/26/18. Anticipate that pt's platelet count should be recovered by that time and pt will be medially maximazed. - At bedside, case was discussed at length with pt, , and sister (RN). All questions answered to the best of my ability. I did explain that pt should likely anticipate a 4-6 week post operative recovery. Pt will need to make substantial lifestyle modifications including control of DM , diabetic diet, increased exercise, and decreased alcohol intake. Diabetes mellitus, type 2 - At home pt is on Amaryl 4mg po BID and Metformin 500mg BID, which are recent increases in her doses - Her last Hgb A1C in August 2017 was 11.3% but has been as high as 13% in 2017. - HgA1C 10.1 (02/23/18) - She has been noncompliant with referrals to Endocrinology. - SSI - Levemir 10mg po BID, may need to be increased - resume amary 4mg BID. - continue to hold metformin d/t recent contrast study. Peripheral neuropathy - She takes Gabapentin 600mg HS and Cymbalta 30mg daily for her neuropathy which she does not feel helps much. The source of her neuropathy is unclear. She is supposed to be having EMG studies done as an outpt which she missed her appt for that. Per Dr. French outpt notes pt will likely require doses of Gabapentin upwards of 1800mg to get effect. - suspect diabetic peripheral neuropathy. Pt has good pulses in her LEs - increase current neurontin dosing to 300mg TID - anticipate that symptoms will improve with improved glycemic control - continue prn percocet & morphine - start colace BID and prn MOM - In review of outpt records she had been prescribed Lyrica 50mg TID in the past but she could not afford this. Alcohol abuse - [facility] protocol - continue Librium 25mg BID, pts last alcoholic beverage was on Monday, . - Monitor for DTs Thrombocytopenia Fatty liver likely secondary to alcohol use Splenomegaly - Gallbladder Ultrasound (02/20/18) --> Mild probable hepatic steatosis - Spleen Ultrasound (02/22/18) --> The examination demonstrates normal echotexture with the spleen length of 12.8 cm. This is at the upper limits of normal in size. - admission Platelet count of 95,000. - platelet 69 (02/21), 73 (02/22), 85 (02/23) - appreciate input from Hematology, Dr. Alva - HIT Abs negative - Lupus anticoagulant and anticardiolipin antibody panel are pending. - PT, PTT are prolonged which is suspected to be due to her liver disease. Coags improving Progress Note: Quality VTE Deep Vein Thrombosis/Pulmonary Embolism Present on Admission: No _ (1) Diabetes Qualifiers: Chronic kidney disease stage: Diabetes mellitus complication detail: Diabetes mellitus complication status: Diabetes mellitus shelter insulin use : Diabetes mellitus macular edema: Diabetes mellitus type: type 2 Diabetic retinopathy severity: Laterality: Proliferative retinopathy type: (2) CAD (coronary artery disease), [place] coronary artery Qualifiers: Associated angina: [place] vs. transplanted heart: (3) Chest pain Qualifiers: Chest pain type: Ischemic chest pain type: (4) Hypertension Qualifiers: Hypertension type:
--- NOTE | 2018-02-23 13:37 | P.PNCV ---
- Note Subjective/Hospital Course: A 48-year-old female, patient of Dr. Montez Piedra, patient of Dr. Bar, presented to the emergency room with chest pain. She apparently had not been feeling well for the last couple of weeks. She has had some nausea. On the evening that she presented, she woke up with some burning in her chest. It lasted a couple of hours. She underwent workup in the chest pain center. Troponins were negative; however, her nuclear stress test showed moderate-sized severe irreversible anterior wall apical perfusion abnormality. She underwent cardiac catheterization by Dr. Bar this morning, which showed an ejection fraction of 70%, proximal LAD 20%, mid distal LAD 90%, the diagonal 95% and the RCA 80%. We were consulted to evaluate for coronary artery bypass grafting. She was also found to have a diagnosis of thrombocytopenia, fatty liver secondary to alcohol use. Hematology has been consulted, recommendation to administer platelets as needed for platelet count less than 50,000 or acute bleeding. PMH: DM HTN 02/22 HIT panel and park neg PLT improved to 73 on scheduled Librium, no signs of withdrawal await results fo CT chest aorta , eval for left subclavian stenosis if stable , will eval for surgery monday or friday 02/23 surgery scheduled for Monday CTA: chest unremarkable. Specifically no evidence of subclavian stenosis as questioned. HGB a1c 10 will need a glucometer at discharge / consult art educator PLT 85K I Objective: Vital Signs - 24 hr 02/22/18 14:00 02/22/18 14:39 02/22/18 16:00 Temperature 98.0 F Pulse Rate 78 72 71 Respiratory Rate 18 Blood Pressure 150/88 H Pulse Oximetry 96 02/22/18 16:42 02/22/18 17:00 02/22/18 17:30 Temperature Pulse Rate 72 80 Respiratory Rate 20 Blood Pressure Pulse Oximetry 02/22/18 19:00 02/22/18 19:51 02/22/18 20:00 Temperature 98 F Pulse Rate 66 75 68 Respiratory Rate 20 Blood Pressure 139/91 H Pulse Oximetry 95 98 02/22/18 21:00 02/22/18 22:00 02/22/18 22:17 Temperature Pulse Rate 74 72 Respiratory Rate 16 Blood Pressure Pulse Oximetry 02/22/18 23:00 02/22/18 23:17 02/23/18 00:00 Temperature 97.9 F Pulse Rate 73 73 Respiratory Rate 17 22 Blood Pressure 153/95 H Pulse Oximetry 96 02/23/18 01:00 02/23/18 02:00 02/23/18 03:00 Temperature Pulse Rate 74 66 72 Respiratory Rate Blood Pressure Pulse Oximetry 02/23/18 04:00 02/23/18 05:00 02/23/18 06:00 Temperature 98 F Pulse Rate 75 67 68 Respiratory Rate 18 Blood Pressure 135/85 Pulse Oximetry 96 02/23/18 07:00 02/23/18 08:00 02/23/18 09:00 Temperature 97.9 F Pulse Rate 73 69 72 Respiratory Rate 16 Blood Pressure 140/79 Pulse Oximetry 94 L 02/23/18 10:00 02/23/18 10:58 02/23/18 11:29 Temperature Pulse Rate 68 68 Respiratory Rate Blood Pressure Pulse Oximetry 94 L 02/23/18 12:00 02/23/18 13:00 02/23/18 13:30 Temperature 98.0 F Pulse Rate 62 68 68 Respiratory Rate 16 Blood Pressure 105/76 Pulse Oximetry 93 L GENERAL: A&O x 3 SKIN: Warm and dry. HEAD: Normocephalic. EYES: No scleral icterus. No injection or drainage. NECK: Supple, trachea midline. No JVD or lymphadenopathy. CARDIOVASCULAR: Regular rate and rhythm without murmurs, gallops, or rubs. RESPIRATORY: Breath sounds equal bilaterally. No accessory muscle use. GASTROINTESTINAL: Abdomen soft, non-tender, nondistended. MUSCULOSKELETAL: No cyanosis, or edema. BACK: Nontender without obvious deformity. No CVA tenderness. Labs: Laboratory Results - last 12 hr 02/23/18 02/23/18 02/23/18 07:29 08:26 11:30 WBC 5.0 RBC 4.09 Hgb 14.5 Hct 42.4 MCV 103.6 H MCH 35.5 H MCHC 34.2 RDW 14.1 Plt Count 85 L MPV 10.4 POC Glucose 206 H 276 H Result Diagrams: 02/23/18 07:29 02/22/18 05:59 - Plan (3) Diabetes (4) Alcohol abuse Plan: on scheduled Librium , no signs of withdrawal (6) Thrombocytopenia Plan: PLT improving Lupus anticoagulant and anticardiolipin antibody panel are pending. PT, PTT are prolonged which is suspected to be due to her liver disease. Coags improving hematology following (7) CAD (coronary artery disease), [place] coronary artery Plan: for surgery on Monday (3) Diabetes Qualifiers: Diabetes mellitus type: type 2
--- NOTE | 2018-02-23 15:44 | P.PNONC ---
Subjective Interval history: Family at bedside. Patient offers no complaints. No chest pain. Eager to have her procedure on Monday. Objective Vital Signs/Intake & Output: Vital Signs 02/22/18 16:00 02/22/18 16:42 02/22/18 17:00 Temperature 98.0 F Pulse Rate 71 72 Respiratory Rate 18 20 Blood Pressure 150/88 H Pulse Oximetry 96 02/22/18 17:30 02/22/18 19:00 02/22/18 19:51 Temperature 98 F Pulse Rate 80 66 75 Respiratory Rate 20 Blood Pressure 139/91 H Pulse Oximetry 95 02/22/18 20:00 02/22/18 21:00 02/22/18 22:00 Temperature Pulse Rate 68 74 72 Respiratory Rate Blood Pressure Pulse Oximetry 98 02/22/18 22:17 02/22/18 23:00 02/22/18 23:17 Temperature Pulse Rate 73 Respiratory Rate 16 17 Blood Pressure Pulse Oximetry 02/23/18 00:00 02/23/18 01:00 02/23/18 02:00 Temperature 97.9 F Pulse Rate 73 74 66 Respiratory Rate 22 Blood Pressure 153/95 H Pulse Oximetry 96 02/23/18 03:00 02/23/18 04:00 02/23/18 05:00 Temperature 98 F Pulse Rate 72 75 67 Respiratory Rate 18 Blood Pressure 135/85 Pulse Oximetry 96 02/23/18 06:00 02/23/18 07:00 02/23/18 08:00 Temperature 97.9 F Pulse Rate 68 73 69 Respiratory Rate 16 Blood Pressure 140/79 Pulse Oximetry 94 L 02/23/18 09:00 02/23/18 10:00 02/23/18 10:58 Temperature Pulse Rate 72 68 68 Respiratory Rate Blood Pressure Pulse Oximetry 02/23/18 11:29 02/23/18 12:00 02/23/18 13:00 Temperature 98.0 F Pulse Rate 62 68 Respiratory Rate 16 Blood Pressure 105/76 Pulse Oximetry 94 L 93 L 02/23/18 13:30 02/23/18 15:00 02/23/18 15:03 Temperature Pulse Rate 68 72 Respiratory Rate 20 Blood Pressure Pulse Oximetry Intake & Output 02/22/18 02/23/18 02/23/18 18:59 06:59 18:59 Intake Total 820 / 820 480 / 480 Balance 820 / 820 480 / 480 Intake: Oral 820 / 820 480 / 480 Other: # Voids 2 3 Date of Last Bowel Movement 02/21/18 02/22/18 02/22/18 Result Diagrams: 02/23/18 07:29 02/22/18 05:59 Laboratory Results: Laboratory Results - last 24 hr 02/21/18 02/22/18 02/22/18 09:48 16:39 21:41 WBC RBC Hgb Hct MCV MCH MCHC RDW Plt Count MPV POC Glucose 207 H 191 H Hemoglobin A1c 10.1 H 02/23/18 02/23/18 02/23/18 07:29 08:26 11:30 WBC 5.0 RBC 4.09 Hgb 14.5 Hct 42.4 MCV 103.6 H MCH 35.5 H MCHC 34.2 RDW 14.1 Plt Count 85 L MPV 10.4 POC Glucose 206 H 276 H Hemoglobin A1c Imaging Studies: Impressions Thoracic Aorta CT 02/22/18 00:00 CONCLUSION: Unremarkable CTA evaluation. Specifically no evidence of subclavian stenosis as questioned. Medications: Active Medications Generic Name Dose Route Start Last Admin Trade Name Freq PRN Reason Stop Dose Admin Amitriptyline HCl 10 mg 02/20/18 21:00 02/22/18 21:38 Elavil PO 10 mg HS KAMRYN Administration Aspirin 81 mg 02/21/18 10:54 02/23/18 08:33 Ecotrin PO 81 mg DAILY KAMRYN Administration Chlordiazepoxide 25 mg 02/21/18 21:00 02/23/18 08:33 Librium PO 25 mg BID KAMRYN Administration Docusate Sodium 100 mg 02/23/18 10:30 02/23/18 11:33 Colace PO 100 mg BID KAMRYN Administration Duloxetine HCl 30 mg 02/21/18 09:00 02/23/18 08:33 Cymbalta PO 30 mg DAILY KAMRYN Administration Gabapentin 300 mg 02/23/18 13:00 02/23/18 13:15 Neurontin PO 300 mg TID KAMRYN Administration Insulin Aspart 0 unit 02/21/18 08:00 02/23/18 11:32 Novolog Insulin Correctional Sugar Inj SQ 7 unit ACHS KAMRYN Administration Protocol Insulin Detemir 10 unit 02/22/18 21:00 02/23/18 08:30 Levemir Inj SQ 10 unit BID KAMRYN Administration Metoprolol Tartrate 25 mg 02/20/18 21:00 02/23/18 08:32 Lopressor PO 25 mg BID KAMRYN Administration Morphine Sulfate 2 mg 02/20/18 17:39 02/22/18 23:00 Morphine Inj IV.PUSH 2 mg Q4H PRN Administration PAIN SCALE 6 TO 10 Ondansetron HCl 4 mg 02/20/18 11:53 02/20/18 14:30 Zofran Inj IV.PUSH 4 mg Q6H PRN Administration NAUSEA Oxycodone/Acetaminophen 1 tab 02/23/18 10:28 02/23/18 14:44 Percocet 5/325 Mg PO 1 tab Q4HR PRN Administration pain 1-5, Pantoprazole Sodium 40 mg 02/20/18 17:30 02/23/18 08:33 Protonix PO 40 mg DAILY KAMRYN Administration Sodium Chloride 2 ml 02/21/18 21:00 02/23/18 08:33 Ns Flush IV.FLUSH 2 ml BID KAMRYN Administration Objective Remarks: GENERAL: Well-nourished, well-developed patient. SKIN: Warm and dry. HEAD: Normocephalic. EYES: No scleral icterus. No injection or drainage. NECK: Supple, trachea midline. No JVD or lymphadenopathy. LYMPHATIC: No adenopathy. CARDIOVASCULAR: Regular rate and rhythm without murmurs. RESPIRATORY: Breath sounds equal bilaterally. No accessory muscle use. GASTROINTESTINAL: Abdomen soft, non-tender, nondistended. EXTREMITIES: No cyanosis, or edema. MUSCULOSKELETAL: Adequate muscle tone. NEUROLOGICAL: No obvious focal deficit. Awake, alert, and oriented x3. PSYCHIATRIC: Appropriate mood and affect; insight and judgment normal. Assessment/Plan - Plan Ms. Leiva is a 48-year-old female patient with multiple medical problems including diabetes, hypertension, high cholesterol and fatty liver secondary to alcohol use. Recently presented to the hospital with chest pain and diagnosed with coronary artery disease requiring coronary artery bypass grafting. Hematology was consulted for thrombocytopenia. Recommendations: 1. Thrombocytopenia, likely due to fatty liver, alcoholism, and hypersplenism. We discussed decrease in thrombopoietin production in patients with fatty liver or liver disease. Noted is with her liver function improvement correlating with her platelet count improvement. Empiric B12 and folate was administered. No platelet clumps identified. H IT negative. Given age unlikely bone marrow process. Defer bone marrow biopsy evaluation for now. Unlikely other drug effect. No specific treatment for the mild thrombocytopenia as she is asymptomatic. Lupus anticoagulant and antiphospholipid antibodies are still pending. 2. Fatty liver disease, patient should follow-up with gastroenterology. Ultrasound confirmed mildly elevated spleen size. 3. Monitor CBC. 4. Transfuse as needed.
[2018-02-23] MEDS: LORazepam 1 MG Tablet PO PRN (20:40)
[2018-02-23] MEDS: Amitriptyline 10 MG Tablet PO SCH (20:41)
[2018-02-23] MEDS: Glimepiride 4 MG Tablet PO SCH (21:18)
[2018-02-24 04:02] LABS: Hematocrit 42.2 % (35.0-46.0); Hemoglobin 14.1 gm/dL (11.6-15.3); Mean Corpuscular HGB Conc 33.4 % (32.0-36.0); Mean Corpuscular Hemoglobin 34.4 pg (27.0-34.0); Mean Corpuscular Volume 103.1 fL (80.0-100.0); Mean Platelet Volume 10.6 fL (7.0-11.0); Platelet Count 92 th/mm3 (150-450); Red Blood Count 4.09 mil/mm3 (4.00-5.30); Red Cell Distribution Width 13.9 % (11.6-17.2); White Blood Count 4.8 th/mm3 (4.0-11.0)
[2018-02-24 04:27] LABS: Chol/HDL Ratio 7.25 Ratio; HDL Cholesterol 28.8 mg/dL (40.0-60.0)
[2018-02-24] MEDS: Gabapentin 300 MG Capsule PO SCH ×3 (09:28→17:28)
[2018-02-24] MEDS: chlordiazePOXIDE 25 MG Capsule PO SCH (09:28)
[2018-02-24] MEDS: Docusate Sodium 100 MG Capsule PO SCH ×2 (09:29→20:12)
[2018-02-24] MEDS: Metoprolol Tartrate 25 MG Tablet PO SCH ×2 (09:29→20:13)
[2018-02-24] MEDS: Insulin NovoLOG Aspart Correctional Sugar Inj SQ SCH ×4 (09:30→21:08)
[2018-02-24] MEDS: Glimepiride 4 MG Tablet PO SCH ×2 (09:30→20:13)
[2018-02-24] MEDS: Insulin Detemir Inj 1,000 UNIT/10 ML Vial SQ SCH ×2 (09:30→20:13)
--- NOTE | 2018-02-24 11:31 | P.PNONC ---
Subjective Interval history: Afebrile No bleeding Patient reports she did not sleep well last night and is looking forward to taking a nap today Objective Vital Signs/Intake & Output: Vital Signs 02/23/18 11:29 02/23/18 12:00 02/23/18 13:00 Temperature 98.0 F Pulse Rate 62 68 Respiratory Rate 16 Blood Pressure 105/76 Pulse Oximetry 94 L 93 L 02/23/18 13:30 02/23/18 15:00 02/23/18 15:03 Temperature Pulse Rate 68 72 Respiratory Rate 20 Blood Pressure Pulse Oximetry 02/23/18 15:45 02/23/18 15:56 02/23/18 17:00 Temperature 97.9 F Pulse Rate 72 69 70 Respiratory Rate 18 Blood Pressure 146/101 H Pulse Oximetry 98 02/23/18 17:15 02/23/18 19:00 02/23/18 20:00 Temperature 97.8 F Pulse Rate 72 72 74 Respiratory Rate 18 Blood Pressure 138/80 Pulse Oximetry 94 L 02/23/18 21:00 02/23/18 21:20 02/23/18 22:00 Temperature Pulse Rate 74 70 Respiratory Rate Blood Pressure Pulse Oximetry 95 02/23/18 23:00 02/23/18 23:28 02/24/18 00:00 Temperature 97.7 F Pulse Rate 74 75 70 Respiratory Rate 18 Blood Pressure 146/101 H Pulse Oximetry 95 02/24/18 01:00 02/24/18 02:00 02/24/18 03:00 Temperature Pulse Rate 70 70 70 Respiratory Rate Blood Pressure Pulse Oximetry 02/24/18 04:00 02/24/18 05:00 02/24/18 06:00 Temperature 97.8 F Pulse Rate 74 72 70 Respiratory Rate 18 Blood Pressure 132/81 Pulse Oximetry 93 L 02/24/18 07:00 02/24/18 08:00 02/24/18 09:00 Temperature 98.2 F Pulse Rate 71 77 67 Respiratory Rate 16 Blood Pressure 128/85 Pulse Oximetry 93 L 02/24/18 10:00 Temperature Pulse Rate 69 Respiratory Rate Blood Pressure Pulse Oximetry Intake & Output 02/23/18 02/24/18 02/24/18 18:59 06:59 18:59 Intake Total 960 / 960 480 / 480 Balance 960 / 960 480 / 480 Weight 173 lb 4.533 oz Intake: Oral 960 / 960 480 / 480 Other: # Voids 2 2 Date of Last Bowel Movement 02/22/18 # Bowel Movements 1 Result Diagrams: 02/24/18 03:36 02/22/18 05:59 Laboratory Results: Laboratory Results - last 24 hr 02/23/18 02/23/18 02/23/18 11:30 17:02 20:27 WBC RBC Hgb Hct MCV MCH MCHC RDW Plt Count MPV POC Glucose 276 H 180 H 174 H Triglycerides Cholesterol LDL Cholesterol, Calc HDL Cholesterol Cholesterol/HDL Ratio 02/24/18 02/24/18 02/24/18 03:36 03:36 08:41 WBC 4.8 RBC 4.09 Hgb 14.1 Hct 42.2 MCV 103.1 H MCH 34.4 H MCHC 33.4 RDW 13.9 Plt Count 92 L MPV 10.6 POC Glucose 143 H Triglycerides 175 H Cholesterol 209 H LDL Cholesterol, Calc 145 H HDL Cholesterol 28.8 L Cholesterol/HDL Ratio 7.25 Medications: Active Medications Generic Name Dose Route Start Last Admin Trade Name Shadq PRN Reason Stop Dose Admin Amitriptyline HCl 10 mg 02/20/18 21:00 02/23/18 20:41 Elavil PO 10 mg HS KAMRYN Administration Aspirin 81 mg 02/21/18 10:54 02/24/18 09:30 Ecotrin PO 81 mg DAILY KAMRYN Administration Chlordiazepoxide 25 mg 02/21/18 21:00 02/24/18 09:28 Librium PO 25 mg BID KAMRYN Administration Docusate Sodium 100 mg 02/23/18 10:30 02/24/18 09:29 Colace PO 100 mg BID KAMRYN Administration Duloxetine HCl 30 mg 02/21/18 09:00 02/24/18 09:28 Cymbalta PO 30 mg DAILY KAMRYN Administration Gabapentin 300 mg 02/23/18 13:00 02/24/18 09:28 Neurontin PO 300 mg TID KAMRYN Administration Glimepiride 4 mg 02/23/18 21:00 02/24/18 09:30 Amaryl PO 4 mg BID KAMRYN Administration Insulin Aspart 0 unit 02/21/18 08:00 02/24/18 09:30 Novolog Insulin Correctional Sugar Inj SQ Not Given ACHS [facility] Protocol Insulin Detemir 10 unit 02/22/18 21:00 02/24/18 09:30 Levemir Inj SQ 10 unit BID KAMRYN Administration Lorazepam 1 mg 02/20/18 21:11 02/23/18 20:40 Ativan PO 1 mg Q4H PRN Administration for CIWA 8-10 Metoprolol Tartrate 25 mg 02/20/18 21:00 02/24/18 09:29 Lopressor PO 25 mg BID KAMRYN Administration Morphine Sulfate 2 mg 02/20/18 17:39 02/22/18 23:00 Morphine Inj IV.PUSH 2 mg Q4H PRN Administration PAIN SCALE 6 TO 10 Ondansetron HCl 4 mg 02/20/18 11:53 02/20/18 14:30 Zofran Inj IV.PUSH 4 mg Q6H PRN Administration NAUSEA Oxycodone/Acetaminophen 1 tab 02/23/18 10:28 02/24/18 09:29 Percocet 5/325 Mg PO 1 tab Q4HR PRN Administration pain 1-5, Pantoprazole Sodium 40 mg 02/20/18 17:30 02/24/18 09:28 Protonix PO 40 mg DAILY KAMRYN Administration Sodium Chloride 2 ml 02/21/18 21:00 02/24/18 09:31 Ns Flush IV.FLUSH 2 ml BID KAMRYN Administration Objective Remarks: GENERAL: Well-nourished, well-developed middle-aged female patient, in no acute distress. SKIN: Warm and dry. HEAD: Normocephalic. EYES: No scleral icterus. No injection or drainage. NECK: Supple, trachea midline. CARDIOVASCULAR: Regular rate and rhythm without murmurs. RESPIRATORY: Breath sounds equal bilaterally. No accessory muscle use. GASTROINTESTINAL: Abdomen large, soft, non-tender, nondistended. EXTREMITIES: No cyanosis, or edema. MUSCULOSKELETAL: Adequate muscle tone. NEUROLOGICAL: No obvious focal deficit. Awake, alert, and oriented x3. Assessment/Plan - Plan Ms. Leiva is a 48-year-old female patient with multiple medical problems including diabetes, hypertension, high cholesterol and fatty liver secondary to alcohol use. Recently presented to the hospital with chest pain and diagnosed with coronary artery disease requiring coronary artery bypass grafting. Hematology was consulted for thrombocytopenia. 1. Thrombocytopenia likely due to fatty liver, alcoholism and hypersplenism. Defer bone marrow biopsy evaluation for now. No specific therapy needed at present as she is asymptomatic. Lupus anticoagulant and antiphospholipid antibodies remain pending. 2. Patient will need follow-up with gastroenterology upon discharge for fatty liver disease. 3. Monitor CBC. - Attending Statement The exam, history, and the medical decision-making described in the above note were completed with the assistance of the mid-level provider. I reviewed and agree with the findings presented. I attest that I had a [id number] encounter with the patient on the same day, and personally performed and documented my assessment and findings in the medical record. Patient denies any bleeding. Her platelet count stable at 92,000. No need for intervention at this time. Continue to monitor CBC. She is going to have surgery Monday morning.
--- NOTE | 2018-02-24 16:16 | P.PNIM ---
Subjective Interval history: Pt has NO new clinical complaints. Physical Exam Vital signs: Last Vital Signs Temp 97.9 F 02/24/18 12:00 Pulse 79 02/24/18 14:00 Resp 17 02/24/18 12:00 BP 130/75 02/24/18 12:00 Pulse Ox 94 L 02/24/18 12:00 Narrative: General: NAD, AAOx3 Chest: CTA Cardiac: Regular Abd: +BS, soft ND/NT Ext: No edema Results Labs CBC & Chem 7: 02/28/18 04:05 02/28/18 04:05 Assessment and Plan Plan Chest pain Abnormal stress test - Pt is a 48 y/o female with hypertension, diabetes, and family history of heart disease that was admitted to the [facility] on 02/20/18 with complaints of chest discomfort. Patient states that she just has not been feeling well last approximately 3 weeks. States she has been vomiting quite often. Out of the 3 weeks she has probably had 9 or 10 days of vomiting multiple times each of those days. When this occurs she has a discomfort in the center/right side of her chest radiating to the neck. The discomfort is described as a burning, lasting about 30 minutes and will typically resolve on its own. At times she has become short of breath and diaphoretic. The night prior to admission she developed the same burning pain which lasted longer than it had previously. - In the [facility] she had three sets of CE which were negative - Nuclear stress test (02/20/18) - Moderate sized moderate severity reversible anterior wall and apical perfusion abnormality. - Cardiology was consulted and pt was transferred to the Hospitalist team - Pt underwent LHC (02/21/18) --> Ejection fraction of 70%, proximal LAD 20%, mid distal LAD 90%, the diagonal 95% and the RCA 80%. - Carotid Doppler Study (02/21/18) 1. Right Internal Carotid Artery: Mild plaquing with no evidence of stenosis. 2. Left Internal Carotid Artery: Mild plaquing with no evidence of stenosis. - Cont. ASA 325mg daily - Metoprolol 25mg BID, Lisinopril 20mg daily and Norvasc 5mg daily - Case d/w [facility], Dr. Carolyn Velásquez (02/22). - Will proceed with CABG on 02/26/18. Anticipate that pt's platelet count should be recovered by that time and pt will be medially maximazed. - At bedside (02/23), case was discussed at length with pt, , and sister (RN). All questions answered to the best of my ability. I did explain that pt should likely anticipate a 4-6 week post operative recovery. Pt will need to make substantial lifestyle modifications including control of DM , diabetic diet, increased exercise, and decreased alcohol intake. Diabetes mellitus, type 2 - At home pt is on Amaryl 4mg po BID and Metformin 500mg BID, which are recent increases in her doses - Her last Hgb A1C in August 2017 was 11.3% but has been as high as 13% in 2017. - HgA1C 10.1 (02/23/18) - She has been noncompliant with referrals to Endocrinology. - SSI - Levemir 10mg po BID, may need to be increased - resume amary 4mg BID. - continue to hold metformin d/t recent contrast study. Peripheral neuropathy - She takes Gabapentin 600mg HS and Cymbalta 30mg daily for her neuropathy which she does not feel helps much. The source of her neuropathy is unclear. She is supposed to be having EMG studies done as an outpt which she missed her appt for that. Per Dr. French outpt notes pt will likely require doses of Gabapentin upwards of 1800mg to get effect. - suspect diabetic peripheral neuropathy. Pt has good pulses in her LEs - increase current neurontin dosing to 300mg TID - anticipate that symptoms will improve with improved glycemic control - continue prn percocet & morphine - start colace BID and prn MOM - In review of outpt records she had been prescribed Lyrica 50mg TID in the past but she could not afford this. Alcohol abuse - [facility] protocol - continue Librium 25mg BID, pts last alcoholic beverage was on Monday, . - Monitor for DTs Thrombocytopenia Fatty liver likely secondary to alcohol use Splenomegaly - Gallbladder Ultrasound (02/20/18) --> Mild probable hepatic steatosis - Spleen Ultrasound (02/22/18) --> The examination demonstrates normal echotexture with the spleen length of 12.8 cm. This is at the upper limits of normal in size. - admission Platelet count of 95,000. - platelet 69 (02/21), 73 (02/22), 85 (02/23), 92 (02/24) - appreciate input from Hematology, Dr. Alva - HIT Abs negative - Lupus anticoagulant and anticardiolipin antibody panel are pending. - PT, PTT are prolonged which is suspected to be due to her liver disease. Coags improving 02/24/18 - Pt interviewed and examined - continue current treatment plan as outlined above. Progress Note: Quality VTE Deep Vein Thrombosis/Pulmonary Embolism Present on Admission: No
[2018-02-24] MEDS: Amitriptyline 10 MG Tablet PO SCH (20:13)
[2018-02-25 05:41] LABS: Baso % (Auto) 0.8 % (0.0-2.0); Eos # (Auto) 0.3 th/mm3 (0.0-0.4); Eos % (Auto) 5.8 % (0.0-4.0); Hematocrit 39.4 % (35.0-46.0); Lymph # (Auto) 1.1 th/mm3 (1.0-4.8); Lymph % (Auto) 23.5 % (9.0-44.0); Mean Corpuscular HGB Conc 35.4 % (32.0-36.0); Mean Corpuscular Hemoglobin 35.8 pg (27.0-34.0); Mean Corpuscular Volume 101.1 fL (80.0-100.0); Mean Platelet Volume 10.7 fL (7.0-11.0); Mono # (Auto) 0.7 th/mm3 (0.0-0.9); Neut # (Auto) 2.4 th/mm3 (1.8-7.7); Neut % (Auto) 53.9 % (16.0-70.0); Platelet Count 98 th/mm3 (150-450); Red Cell Distribution Width 14.1 % (11.6-17.2); White Blood Count 4.5 th/mm3 (4.0-11.0)
[2018-02-25 05:45] LABS: INR 1.2 Ratio
[2018-02-25 05:55] LABS: Albumin 3.4 g/dL (3.4-5.0); Anion Gap 8 meq/L (5-15); Aspartate Aminotransferase 59 U/L (15-37); Blood Urea Nitrogen 12 mg/dL (7-18); Calcium 8.7 mg/dL (8.5-10.1); Carbon Dioxide 26.1 meq/L (21.0-32.0); Chloride 101 meq/L (98-107); Glomerular Filtration Rate Greater Than 89 mL/min (>89); Glucose,Random 211 mg/dL (74-106); Sodium 135 meq/L (136-145)
[2018-02-25 05:57] LABS: Alanine Aminotransferase 65 U/L (10-53)
[2018-02-25 05:59] LABS: Alkaline Phosphatase 106 U/L (45-117); Total Protein 7.8 g/dL (6.4-8.2)
[2018-02-25] MEDS: Insulin Detemir Inj 1,000 UNIT/10 ML Vial SQ SCH (09:13)
[2018-02-25] MEDS: Gabapentin 300 MG Capsule PO SCH ×3 (09:13→17:10)
[2018-02-25] MEDS: Insulin NovoLOG Aspart Correctional Sugar Inj SQ SCH ×5 (09:13→21:52)
[2018-02-25] MEDS: Docusate Sodium 100 MG Capsule PO SCH ×2 (09:13→20:08)
[2018-02-25] MEDS: Glimepiride 4 MG Tablet PO SCH (09:14)
[2018-02-25] MEDS: Metoprolol Tartrate 25 MG Tablet PO SCH ×2 (09:14→20:08)
--- NOTE | 2018-02-25 09:45 | P.PNIM ---
Subjective Interval history: Pt feeling well this morning Blood sugars have been elevated No new complaints Physical Exam Vital signs: Last Vital Signs Temp 97.9 F 02/25/18 04:00 Pulse 70 02/25/18 06:00 Resp 16 02/25/18 04:00 BP 147/90 H 02/25/18 04:00 Pulse Ox 94 L 02/25/18 04:00 Narrative: General: NAD, AAOx3 Chest: CTA Cardiac: Regular Abd: +BS, soft ND/NT Ext: No edema Results Labs CBC & Chem 7: 02/28/18 04:05 02/28/18 04:05 Imaging Chest X-Ray 02/20/18 07:28 CONCLUSION: Negative examination. Gallbladder Ultrasound 02/20/18 11:54 CONCLUSION: Mild probable hepatic steatosis. Myocardial Perfusion Scan Nuc Med 02/20/18 14:59 CONCLUSION: Moderate sized moderate severity reversible anterior wall and apical perfusion abnormality. Carotid Doppler Study 02/21/18 13:57 CONCLUSION: 1. Right Internal Carotid Artery: Mild plaquing with no evidence of stenosis. 2. Left Internal Carotid Artery: Mild plaquing with no evidence of stenosis. Lower Extremity Ultrasound 02/21/18 13:57 CONCLUSION: 1. Venous mapping study as described. Venous Doppler Study 02/21/18 13:57 CONCLUSION: The study is negative for bilateral lower extremity deep venous thrombosis. Thoracic Aorta CT 02/22/18 00:00 CONCLUSION: Unremarkable CTA evaluation. Specifically no evidence of subclavian stenosis as questioned. Spleen Ultrasound 02/22/18 08:00 CONCLUSION: 1. The examination demonstrates normal echotexture with the spleen length of 12.8 cm. This is at the upper limits of normal in size. Assessment and Plan Plan Chest pain Abnormal stress test - Pt is a 48 y/o female with hypertension, diabetes, and family history of heart disease that was admitted to the [facility] on 02/20/18 with complaints of chest discomfort. Patient states that she just has not been feeling well last approximately 3 weeks. States she has been vomiting quite often. Out of the 3 weeks she has probably had 9 or 10 days of vomiting multiple times each of those days. When this occurs she has a discomfort in the center/right side of her chest radiating to the neck. The discomfort is described as a burning, lasting about 30 minutes and will typically resolve on its own. At times she has become short of breath and diaphoretic. The night prior to admission she developed the same burning pain which lasted longer than it had previously. - In the [facility] she had three sets of CE which were negative - Nuclear stress test (02/20/18) - Moderate sized moderate severity reversible anterior wall and apical perfusion abnormality. - Cardiology was consulted and pt was transferred to the Hospitalist team - Pt underwent LHC (02/21/18) --> Ejection fraction of 70%, proximal LAD 20%, mid distal LAD 90%, the diagonal 95% and the RCA 80%. - Carotid Doppler Study (02/21/18) 1. Right Internal Carotid Artery: Mild plaquing with no evidence of stenosis. 2. Left Internal Carotid Artery: Mild plaquing with no evidence of stenosis. - Cont. ASA 325mg daily - Metoprolol 25mg BID, Lisinopril 20mg daily and Norvasc 5mg daily - [facility], Dr. Carolyn Velásquez (02/22). - Pt is planned to proceed with CABG on 02/26/18. - On 02/23, the case was discussed at length with pt, , and sister (RN) and Dr. Aragon. It was explained that pt should likely anticipate a 4-6 week post operative recovery. Pt will need to make substantial lifestyle modifications including control of DM, diabetic diet, increased exercise, and decreased alcohol intake. Diabetes mellitus, type 2 - At home pt is on Amaryl 4mg po BID and Metformin 500mg BID, which are recent increases in her doses - Her last Hgb A1C in August 2017 was 11.3% but has been as high as 13% in 2017. - HgA1C 10.1 (02/23/18) - She has been noncompliant with referrals to Endocrinology. - SSI - Hold Levemir to 10 units BID, for NPO after MN status for surgery tomorrow - Hold Amaryl 4mg BID for NPO after MN status - Increase to high dose SSi - continue to hold metformin d/t recent contrast study. Peripheral neuropathy - She takes Gabapentin 600mg HS and Cymbalta 30mg daily for her neuropathy which she does not feel helps much. The source of her neuropathy is unclear. She is supposed to be having EMG studies done as an outpt which she missed her appt for that. Per Dr. French outpt notes pt will likely require doses of Gabapentin upwards of 1800mg to get effect. - suspect diabetic peripheral neuropathy. Pt has good pulses in her LEs - increase current neurontin dosing to 300mg TID - anticipate that symptoms will improve with improved glycemic control - continue prn percocet & morphine - Colace BID and prn MOM - In review of outpt records she had been prescribed Lyrica 50mg TID in the past but she could not afford this. Alcohol abuse - [facility] protocol - Librium stopped due to sedation, pts last alcoholic beverage was on 02/18/18. - Monitor for DTs Thrombocytopenia Fatty liver likely secondary to alcohol use Splenomegaly - Gallbladder Ultrasound (02/20/18) --> Mild probable hepatic steatosis - Spleen Ultrasound (02/22/18) --> The examination demonstrates normal echotexture with the spleen length of 12.8 cm. This is at the upper limits of normal in size. - admission Platelet count of 95,000. - platelet 69 (02/21), 73 (02/22), 85 (02/23), 92 (02/24), 98 (02/25) - appreciate input from Hematology, Dr. Alva - HIT Abs negative - Lupus anticoagulant and anticardiolipin antibody panel are pending. - PT, PTT are prolonged which is suspected to be due to her liver disease. Coags improving Attending Attestation The exam, history, and the medical decision-making described in the above note were completed with the assistance of the mid-level provider. I reviewed and agree with the findings presented. I attest that I had a [id number] encounter with the patient on the same day, and personally performed and documented my assessment and findings in the medical record. Patient examined. Assessment and plan formulated with Deborah Townsend PA-C. I agree with the above. Progress Note: Quality VTE Deep Vein Thrombosis/Pulmonary Embolism Present on Admission: No
--- NOTE | 2018-02-25 11:11 | P.PNONC ---
Subjective Interval history: Afebrile Patient reports headache and pain in her feet Does not think she received her overnight dose of Percocet No bleeding Objective Vital Signs/Intake & Output: Vital Signs 02/24/18 12:00 02/24/18 13:00 02/24/18 14:00 Temperature 97.9 F Pulse Rate 79 74 79 Respiratory Rate 17 Blood Pressure 130/75 Pulse Oximetry 94 L 02/24/18 15:00 02/24/18 16:00 02/24/18 17:00 Temperature 98 F Pulse Rate 74 69 75 Respiratory Rate 16 Blood Pressure 123/76 Pulse Oximetry 95 02/24/18 17:47 02/24/18 19:00 02/24/18 20:00 Temperature 98.6 F Pulse Rate 75 75 70 Respiratory Rate 18 Blood Pressure 132/83 Pulse Oximetry 93 L 02/24/18 21:00 02/24/18 21:05 02/24/18 22:00 Temperature Pulse Rate 78 72 Respiratory Rate Blood Pressure Pulse Oximetry 95 02/24/18 23:00 02/25/18 00:00 02/25/18 01:00 Temperature 98.7 F Pulse Rate 72 74 74 Respiratory Rate 18 Blood Pressure 129/76 Pulse Oximetry 92 L 02/25/18 02:00 02/25/18 03:00 02/25/18 04:00 Temperature 97.9 F Pulse Rate 72 75 70 Respiratory Rate 16 Blood Pressure 147/90 H Pulse Oximetry 94 L 02/25/18 05:00 02/25/18 06:00 02/25/18 07:00 Temperature Pulse Rate 74 70 71 Respiratory Rate Blood Pressure Pulse Oximetry 02/25/18 08:00 02/25/18 09:00 02/25/18 10:00 Temperature 97.5 F L Pulse Rate 67 72 70 Respiratory Rate 16 Blood Pressure 125/67 Pulse Oximetry 95 Intake & Output 02/24/18 02/25/18 02/25/18 18:59 06:59 18:59 Intake Total 720 / 720 360 / 360 Balance 720 / 720 360 / 360 Weight 174 lb 6.17 oz Intake: Oral 720 / 720 360 / 360 Other: # Voids 2 2 Date of Last Bowel Movement 02/24/18 02/24/18 # Bowel Movements 1 Result Diagrams: 02/25/18 04:55 02/25/18 04:55 Laboratory Results: Laboratory Results - last 24 hr 02/22/18 02/24/18 02/24/18 05:59 12:42 16:46 WBC RBC Hgb Hct MCV MCH MCHC RDW Plt Count MPV Prelim Diff (Auto) Neut % (Auto) Lymph % (Auto) [place] % (Auto) Eos % (Auto) Baso % (Auto) Neut # (Auto) Lymph # (Auto) [place] # (Auto) Eos # (Auto) Baso # (Auto) WBC Differential Diff Scan Differential Comment Platelet Estimate Platelet Morphology PT INR Thrombin Time ND Lupus Anticoagulant Lupus Anticoag aPTT 36.0 Dil Sebastián Viper Venom 42.0 dRVVT Confirm Interp ND dRVVT Mix Pat/Norm 1:1 ND dRVVT Mix Interpret ND Hexagonal Phase Confirm ND Sodium Potassium Chloride Carbon Dioxide Anion Gap BUN Creatinine Estimated GFR POC Glucose 211 H 178 H Random Glucose Calcium Total Bilirubin AST ALT Alkaline Phosphatase Total Protein Albumin Beta-2-GPI IgG Ab Less than 9.0 Beta-2-GPI IgA Ab Less than 9.0 Beta-2-GPI IgM Ab Less than 9.0 Anti-Cardiolipin IgG Ab Less than 14.0 Anti-Cardiolipin IgA Ab Less than 11.0 Anti-Cardiolipin IgM Ab Less than 12.0 Blood Type Blood Type Recheck Antibody Screen MTS Gel Crossmatch Bld Prod Order Comment 02/24/18 02/25/18 02/25/18 20:17 04:55 04:55 WBC RBC Hgb Hct MCV MCH MCHC RDW Plt Count MPV Prelim Diff (Auto) Neut % (Auto) Lymph % (Auto) [place] % (Auto) Eos % (Auto) Baso % (Auto) Neut # (Auto) Lymph # (Auto) [place] # (Auto) Eos # (Auto) Baso # (Auto) WBC Differential Diff Scan Differential Comment Platelet Estimate Platelet Morphology PT 12.0 H INR 1.2 Thrombin Time Lupus Anticoagulant Lupus Anticoag aPTT Dil Sebastián Viper Venom dRVVT Confirm Interp dRVVT Mix Pat/Norm 1:1 dRVVT Mix Interpret Hexagonal Phase Confirm Sodium Potassium Chloride Carbon Dioxide Anion Gap BUN Creatinine Estimated GFR POC Glucose 250 H Random Glucose Calcium Total Bilirubin AST ALT Alkaline Phosphatase Total Protein Albumin Beta-2-GPI IgG Ab Beta-2-GPI IgA Ab Beta-2-GPI IgM Ab Anti-Cardiolipin IgG Ab Anti-Cardiolipin IgA Ab Anti-Cardiolipin IgM Ab Blood Type AB Positive Blood Type Recheck Required Antibody Screen Negative MTS Gel Crossmatch See Detail Bld Prod Order Comment 02/25/18 02/25/18 02/25/18 04:55 04:55 09:10 WBC 4.5 RBC 3.90 L Hgb 14.0 Hct 39.4 MCV 101.1 H MCH 35.8 H MCHC 35.4 RDW 14.1 Plt Count 98 L MPV 10.7 Prelim Diff (Auto) Slide review pending Neut % (Auto) 53.9 Lymph % (Auto) 23.5 [place] % (Auto) 16.0 H Eos % (Auto) 5.8 H Baso % (Auto) 0.8 Neut # (Auto) 2.4 Lymph # (Auto) 1.1 [place] # (Auto) 0.7 Eos # (Auto) 0.3 Baso # (Auto) 0.0 WBC Differential . Diff Scan Auto diff confirmed Differential Comment . Platelet Estimate Low L Platelet Morphology Enlarged H PT INR Thrombin Time Lupus Anticoagulant Lupus Anticoag aPTT Dil Sebastián Viper Venom dRVVT Confirm Interp dRVVT Mix Pat/Norm 1:1 dRVVT Mix Interpret Hexagonal Phase Confirm Sodium 135 L Potassium 4.0 Chloride 101 Carbon Dioxide 26.1 Anion Gap 8 BUN 12 Creatinine 0.61 Estimated GFR Greater than 89 POC Glucose 275 H Random Glucose 211 H Calcium 8.7 Total Bilirubin 0.5 AST 59 H ALT 65 H Alkaline Phosphatase 106 Total Protein 7.8 Albumin 3.4 Beta-2-GPI IgG Ab Beta-2-GPI IgA Ab Beta-2-GPI IgM Ab Anti-Cardiolipin IgG Ab Anti-Cardiolipin IgA Ab Anti-Cardiolipin IgM Ab Blood Type Blood Type Recheck Antibody Screen MTS Gel Crossmatch Bld Prod Order Comment Medications: Active Medications Generic Name Dose Route Start Last Admin Trade Name Freq PRN Reason Stop Dose Admin Amitriptyline HCl 10 mg 02/20/18 21:00 02/24/18 20:13 Elavil PO 10 mg HS KAMRYN Administration Aspirin 81 mg 02/21/18 10:54 02/25/18 09:13 Ecotrin PO 81 mg DAILY KAMRYN Administration Atorvastatin Calcium 20 mg 02/24/18 21:00 02/24/18 20:11 Lipitor PO 20 mg HS KAMRYN Administration Docusate Sodium 100 mg 02/23/18 10:30 02/25/18 09:13 Colace PO 100 mg BID KAMRYN Administration Duloxetine HCl 30 mg 02/21/18 09:00 02/25/18 09:14 Cymbalta PO 30 mg DAILY KAMRYN Administration Gabapentin 300 mg 02/23/18 13:00 02/25/18 09:13 Neurontin PO 300 mg TID KAMRYN Administration Glimepiride 4 mg 02/23/18 21:00 02/25/18 09:14 Amaryl PO 4 mg BID KAMRYN Administration Insulin Aspart 0 unit 02/21/18 08:00 02/25/18 09:13 Novolog Insulin Correctional Sugar Inj SQ 7 unit ACHS KAMRYN Administration Protocol Insulin Detemir 10 unit 02/22/18 21:00 02/25/18 09:13 Levemir Inj SQ 10 unit BID KAMRYN Administration Lorazepam 1 mg 02/20/18 21:11 02/23/18 20:40 Ativan PO 1 mg Q4H PRN Administration for CIWA 8-10 Lorazepam 1 mg 02/22/18 16:58 02/25/18 02:09 Ativan Inj IV.PUSH 1 mg Q6H PRN Administration ANXIETY Metoprolol Tartrate 25 mg 02/20/18 21:00 02/25/18 09:14 Lopressor PO 25 mg BID KAMRYN Administration Morphine Sulfate 2 mg 02/20/18 17:39 02/22/18 23:00 Morphine Inj IV.PUSH 2 mg Q4H PRN Administration PAIN SCALE 6 TO 10 Ondansetron HCl 4 mg 02/20/18 11:53 02/20/18 14:30 Zofran Inj IV.PUSH 4 mg Q6H PRN Administration NAUSEA Oxycodone/Acetaminophen 1 tab 02/23/18 10:28 02/25/18 08:29 Percocet 5/325 Mg PO 1 tab Q4HR PRN Administration pain 1-5, Pantoprazole Sodium 40 mg 02/20/18 17:30 02/25/18 09:13 Protonix PO 40 mg DAILY KAMRYN Administration Sodium Chloride 2 ml 02/21/18 21:00 02/25/18 09:14 Ns Flush IV.FLUSH 2 ml BID KAMRYN Administration Objective Remarks: GENERAL: Well-nourished, well-developed middle-aged female patient, in no acute distress. SKIN: Warm and dry. HEAD: Normocephalic. EYES: No scleral icterus. No injection or drainage. NECK: Supple, trachea midline. CARDIOVASCULAR: Regular rate and rhythm without murmurs. RESPIRATORY: Breath sounds equal bilaterally. No accessory muscle use. GASTROINTESTINAL: Abdomen large, soft, non-tender, nondistended. EXTREMITIES: No cyanosis, or edema. MUSCULOSKELETAL: Adequate muscle tone. NEUROLOGICAL: No obvious focal deficit. Awake, alert, and oriented x3. Assessment/Plan - Plan Ms. Leiva is a 48-year-old female patient with multiple medical problems including diabetes, hypertension, high cholesterol and fatty liver secondary to alcohol use. Recently presented to the hospital with chest pain and diagnosed with coronary artery disease requiring coronary artery bypass grafting. Hematology was consulted for thrombocytopenia. 1. Thrombocytopenia likely due to fatty liver, alcoholism and hypersplenism. Defer bone marrow biopsy evaluation for now. No specific therapy needed at present as she is asymptomatic. Lupus anticoagulant and antiphospholipid antibodies negative. Her platelet count is trending up. Platelet transfusion prior to CABG in a.m. per surgeon preference. 2. Patient will need follow-up with gastroenterology upon discharge for fatty liver disease. 3. Monitor CBC. - Attending Statement The exam, history, and the medical decision-making described in the above note were completed with the assistance of the mid-level provider. I reviewed and agree with the findings presented. I attest that I had a [id number] encounter with the patient on the same day, and personally performed and documented my assessment and findings in the medical record. Patient denies any bleeding. Platelet count stable at 98,000. No hematology intervention needed at this time. Continue to monitor.
[2018-02-25] MEDS ORDERED: Dextrose 50% in Water 50 ML Vial IV.PUSH PRN (12:23)
[2018-02-25] MEDS: Amitriptyline 10 MG Tablet PO SCH (20:08)
[2018-02-26] MEDS ORDERED: Chlorhexidine Gluconate 2% 1 Pack (2 Cloths) TOPICAL ONE (02:36)
[2018-02-26 05:09] LABS: Baso % (Auto) 0.9 % (0.0-2.0); Eos # (Auto) 0.3 th/mm3 (0.0-0.4); Eos % (Auto) 5.6 % (0.0-4.0); Hematocrit 40.7 % (35.0-46.0); Hemoglobin 13.8 gm/dL (11.6-15.3); Lymph # (Auto) 0.9 th/mm3 (1.0-4.8); Lymph % (Auto) 20.6 % (9.0-44.0); Mean Corpuscular Hemoglobin 35.5 pg (27.0-34.0); Mean Corpuscular Volume 104.5 fL (80.0-100.0); Mean Platelet Volume 10.7 fL (7.0-11.0); Mono # (Auto) 0.8 th/mm3 (0.0-0.9); Mono % (Auto) 16.8 % (0.0-8.0); Neut # (Auto) 2.6 th/mm3 (1.8-7.7); Neut % (Auto) 56.1 % (16.0-70.0); Platelet Count 113 th/mm3 (150-450); Red Blood Count 3.89 mil/mm3 (4.00-5.30); Red Cell Distribution Width 14.3 % (11.6-17.2); White Blood Count 4.6 th/mm3 (4.0-11.0)
[2018-02-26] MEDS ORDERED: ceFAZolin 1 GM Premix Inj 2 GM/100 ML PIGGYBACK IV.SIG ONE (06:31)
[2018-02-26] MEDS ORDERED: MethylPREDNISolone Sod Succinate Inj 125 MG/2 ML Vial ONE (06:31)
[2018-02-26] MEDS ORDERED: Heparin - SQ 10,000 UNITS/ML Vial ONE (06:31)
[2018-02-26] MEDS ORDERED: Potassium Chloride Inj 40 MEQ/20 ML Vial ONE (07:39)
[2018-02-26] MEDS ORDERED: Cardioplegic Irr Soln 2,000 ML IRRIGATION ONE (07:39)
[2018-02-26] MEDS ORDERED: Heparin 10,000 UNITS/10 ML Vial (for IV use) ONE (07:40)
[2018-02-26] MEDS ORDERED: Albumin Human 25% Inj 50 ML IV.SIG ONE (07:40)
[2018-02-26] MEDS ORDERED: fentaNYL Citrate Inj 250 MCG/5 ML Ampul ONE ×2 (10:20→10:21)
[2018-02-26] MEDS ORDERED: Dexmedetomidine Inj 200 MCG in Sodium Chlor 0.9% Inj 48 ML IV.CONT PRN (10:36)
[2018-02-26] MEDS ORDERED: Clevidipine Inj 25 MG/50 ML VIAL IV.CONT PRN (10:36)
[2018-02-26] MEDS ORDERED: Dextrose 50% in Water 50 ML Vial IV.PUSH PRN (10:36)
[2018-02-26] MEDS ORDERED: Calcium Chloride Inj 1 GM in Sodium Chlor 0.9% Inj 100 ML IV.SIG PRN (10:36)
[2018-02-26] MEDS ORDERED: Ketorolac Inj 30 MG/ML (IVP) Vial IV.PUSH PRN (10:36)
[2018-02-26] MEDS ORDERED: Metoprolol Inj 5 MG/5 ML Vial IV.PUSH PRN (10:36)
[2018-02-26] MEDS ORDERED: Magnesium Sulfate Inj 2 GM in Sodium Chlor 0.9% Inj 96 ML IV.SIG PRN ×4 (10:36)
[2018-02-26] MEDS ORDERED: Calcium Chloride Inj 1 GM/10 ML Syringe IV.PUSH PRN (10:36)
[2018-02-26] MEDS ORDERED: Post-op Orders (for Pharmacy) OTHER STA (10:36)
[2018-02-26] MEDS ORDERED: RESP: Racemic Epinephrine 2.25% 0.5 ML Neb NEB PRN (10:36)
[2018-02-26] MEDS ORDERED: Potassium Chlor 20 mEq Premix 20 MEQ/100 ML PIGGYBACK IV.SIG PRN ×3 (10:36)
[2018-02-26] MEDS: Insulin Regular (For Infusion) 100 UNIT in Sodium Chlor 0.9% Inj 99 ML IV.CONT PRN ×2 (10:55→18:05)
--- NOTE | 2018-02-26 11:29 | P.CONCC ---
History of Present Illness Service: Critical care medicine Consult date: 02/26/18 Requesting Physician: Ashlie Velásquez Reason for Consult: perioperative hemodynamic management Primary Care Provider: UNKNOWN Chief Complaint: Chest pain History of Present Illness: 48yF with history of etoh abuse who was found to have multivessel disease and now presents for urgent on-pump CABG x 3 (MELO-->LAD, SVG-->diag2,SVG-->PLB of RCA). She underwent uncomplicated operation. She arrives to the CVICU in stable condition, intubated, sedated from anesthesia. her chest tubes have put out 200cc blood over a time course of 4 hours and are slowing down. her uop is adequate, her lactate is clearing. of note, she has a baseline thrombocytopenia which is being worked up by hematology. no additional information is available from the patient due to her being intubated postoperatively. ROS unobtainable. Review of Systems unobtainable due to endotracheal tube PMFSH - History History Provided By: Patient - Medical History Medical History: Medical History (Last Reviewed 02/26/18 @ 21:08 by Rogelio Jain MD) Diabetes HTN (hypertension) Hypercholesterolemia - Surgical History Surgical History: Surgical History (Last Reviewed 02/26/18 @ 21:08 by Rogelio Jain MD) No history of previous surgery - Family History Family History: Family History (Last Updated 02/26/18 @ 21:08 by Rogelio Jain MD) Other Family history non-contributory - Social History I have reviewed the patient's Social History: Yes - Tobacco History Second Hand Smoke Exposure: No Tobacco Use In Past 30 Days: No Smoking Status: Never smoker - Alcohol History How Often Do You Have a Drink Containing Alcohol: 4 or more times a week - Substance Use History Substance History: No History of Abuse - Travel History Recent Travel in the [place] Within the Last 8 Weeks: No Recent Travel Out of the Country Within the Last 8 Weeks: No - Immunization History Tetanus Immunization: <5 Years Tetanus Immunization Year if Known: 2013 Medications and Allergies Active Medications: Active Medications Al Hydroxide/Mg Hydroxide (Milk Of Magnshannen Liq) 30 ml PO DAILY PRN PRN Reason: CONSTIPATION Albuterol (Duoneb Neb (Shruthi)) 1 ampul NEB Q6HR NEB SHRUTHI Albuterol (Duoneb Neb (Prn)) 1 ampul NEB Q2HR NEB PRN PRN Reason: WHEEZING Amiodarone HCl (Cordarone) 400 mg PO Q8HR [facility] Amitriptyline HCl (Elavil) 10 mg PO HS [facility] Last Admin: 02/25/18 20:08 Dose: 10 mg Aspirin (Ecotrin) 81 mg PO DAILY [facility] Last Admin: 02/25/18 09:13 Dose: 81 mg Atorvastatin Calcium (Lipitor) 20 mg PO HS [facility] Last Admin: 02/25/18 20:08 Dose: 20 mg Calcium Chloride (Calcium Chloride Inj) 0.5 gm IV.PUSH UNSCH PRN PRN Reason: SEE LABEL COMMENTS Chlorhexidine Gluconate (Hibiclens 4% Topical) 1 applicatio TOPICAL INTRANET SUPPORT [facility] Stop: 02/27/18 13:57 Sodium Chloride 77.5 ml/Papaverine HCl 60 mg/Nitroglycerin 100 mcg/Diltiazem HCl 100 mg 0 ml IRRIGATION INTRANET SUPPORT [facility] Stop: 02/27/18 13:57 Last Admin: 02/26/18 08:59 Dose: 1 bag Sodium Chloride 500 ml/ (Cefazolin Sodium 500 mg) 0 ml IRRIGATION INTRANET SUPPORT [facility] Stop: 02/27/18 13:59 Last Admin: 02/26/18 08:59 Dose: 1 bag Dextrose (D50w Vial) 50 ml IV.PUSH UNSCH PRN PRN Reason: PER HYPOGLYCEMIA PROTOCOL Docusate Sodium (Colace) 100 mg PO BID [facility] Last Admin: 02/25/18 20:08 Dose: Not Given Duloxetine HCl (Cymbalta) 30 mg PO DAILY [facility] Last Admin: 02/25/18 09:14 Dose: 30 mg Epinephrine (Racepinephrine 2.25% Neb) 0.5 ml NEB UNSCH X1 PRN PRN Reason: STRIDOR Fentanyl Citrate (Fentanyl Inj) 25 mcg IV.PUSH Q1H PRN PRN Reason: BREAKTHROUGH PAIN Flumazenil (Romazecon Inj) 0.2 mg IV.PUSH Q1M PRN PRN Reason: OVERSEDATION Gabapentin (Neurontin) 300 mg PO TID [facility] Last Admin: 02/25/18 17:10 Dose: 300 mg Glimepiride (Amaryl) 4 mg PO BID [facility] Last Admin: 02/25/18 09:14 Dose: 4 mg Haloperidol Lactate (Haldol Inj) 1 mg IV.PUSH Q15M PRN PRN Reason: for severe agitation Lactated Ringer's (Lr 1000 Ml Inj) 1,000 mls @ 30 mls/hr IV.SIG .Q24H SHRUTHI Stop: 02/27/18 02:44 Last Infusion: 02/26/18 07:08 Dose: Infused Acetaminophen (Ofirmev Inj) 1,000 mg in 100 mls @ 400 mls/hr IV.SIG Q6H SHRUTHI Stop: 02/27/18 05:14 Albumin Human (Buminate 5% Inj) 250 mls @ 250 mls/hr IV.SIG UNSCH PRN PRN Reason: SEE LABEL COMMENTS Calcium Chloride 1 gm/ Sodium (Chloride) 110 mls @ 100 mls/hr IV.SIG PRN PRN PRN Reason: SEE LABEL COMMENTS Clevidipine (Cleviprex Inj) 25 mg in 50 mls @ 2 mls/hr IV.CONT TITRATE PRN; Protocol PRN Reason: Per protocol Dexmedetomidine HCl 200 mcg/ (Sodium Chloride) 50 mls @ 3.85 mls/hr IV.CONT TITRATE PRN; Protocol PRN Reason: Per Protocol Insulin Human Regular 100 unit (/ Sodium Chloride) 100 mls @ 3 mls/hr IV.CONT TITRATE PRN; Protocol PRN Reason: See Protocol Lactated Ringer's (Lr 1000 Ml Inj) 500 mls @ 500 mls/hr IV.SIG .Q1H PRN PRN Reason: SEE LABEL COMMENTS Magnesium Sulfate 2 gm/ Sodium (Chloride) 100 mls @ 50 mls/hr IV.SIG PRN PRN PRN Reason: SEE LABEL COMMENTS Magnesium Sulfate 2 gm/ Sodium (Chloride) 100 mls @ 50 mls/hr IV.SIG PRN PRN PRN Reason: SEE LABEL COMMENTS Potassium Chloride (Kcl 20 Meq Premix Inj) 20 meq in 100 mls @ 50 mls/hr IV.SIG PRN PRN PRN Reason: SEE LABEL COMMENTS Potassium Chloride (Kcl 20 Meq Premix Inj) 20 meq in 100 mls @ 50 mls/hr IV.SIG PRN PRN PRN Reason: SEE LABEL COMMENTS Potassium Chloride (Kcl 20 Meq Premix Inj) 20 meq in 100 mls @ 50 mls/hr IV.SIG PRN PRN PRN Reason: SEE LABEL COMMENTS Cefazolin Sodium/Dextrose (Ancef 1 Gm Premix Inj) 1 gm in 50 mls @ 100 mls/hr IV.SIG Q8H SHRUTHI Stop: 02/28/18 00:29 Insulin Detemir (Levemir Inj) 10 unit SQ BID [facility] Last Admin: 02/25/18 09:13 Dose: 10 unit Ketorolac Tromethamine (Toradol Inj) 15 mg IV.PUSH Q6H PRN PRN Reason: SEE LABEL COMMENTS Stop: 02/28/18 10:35 Lisinopril (Prinivil) 40 mg PO DAILY [facility] Lorazepam (Ativan) 1 mg PO Q4H PRN PRN Reason: for CIWA 8-10 Last Admin: 02/23/18 20:40 Dose: 1 mg Metoprolol Tartrate (Lopressor) 12.5 mg PO INTRANET SUPPORT [facility] Stop: 02/27/18 13:59 Metoprolol Tartrate (Lopressor Inj) 2.5 mg IV.PUSH Q1H PRN PRN Reason: SEE LABEL COMMENTS Ondansetron HCl (Zofran Inj) 4 mg IV.PUSH Q6H PRN PRN Reason: NAUSEA Last Admin: 02/20/18 14:30 Dose: 4 mg Ondansetron HCl (Zofran Inj) 4 mg IV.PUSH Q6H PRN PRN Reason: NAUSEA OR VOMITING Oxycodone/Acetaminophen (Percocet 5/325 Mg) 1 tab PO Q4HR PRN PRN Reason: pain 1-5, Last Admin: 02/26/18 05:15 Dose: 1 tab Pantoprazole Sodium (Protonix) 40 mg PO DAILY [facility] Last Admin: 02/25/18 09:13 Dose: 40 mg Phenylephrine HCl (Neosynephrine Inj) 0.1 mg IV.PUSH UNSCH PRN PRN Reason: SEE LABEL COMMENTS Potassium Chloride (K-Dur) 20 meq PO UNSCH PRN PRN Reason: SEE LABEL COMMENTS Potassium Chloride (K-Dur) 40 meq PO UNSCH PRN PRN Reason: SEE LABEL COMMENTS Sodium Bicarbonate (Sodium Bicarbonate 8.4% Inj) 50 meq IV.PUSH UNSCH PRN PRN Reason: SEE LABEL COMMENTS Sodium Bicarbonate (Sodium Bicarbonate 8.4% Inj) 100 meq IV.PUSH UNSCH PRN PRN Reason: SEE LABEL COMMENTS Sodium Chloride (Ns Flush) 2 ml IV.FLUSH BID [facility] Sodium Chloride (Ns Flush) 2 ml IV.FLUSH PRN PRN PRN Reason: FLUSH AFTER USING IV ACCESS Allergies Allergy/AdvReac Type Severity Reaction Status Date / Time coconut Allergy Anaphylaxis Verified 02/20/18 09:26 Home Medications Medication Instructions Recorded Confirmed Type amitriptyline 10 mg PO HS 02/20/18 02/20/18 History amlodipine 5 mg PO DAILY 02/20/18 02/20/18 History duloxetine 30 mg PO DAILY 02/20/18 02/20/18 History gabapentin 600 mg PO HS 02/20/18 02/20/18 History glimepiride 4 mg PO BID 02/20/18 02/20/18 History lisinopril 20 mg PO DAILY 02/20/18 02/20/18 History metformin 500 mg PO BID 02/20/18 02/20/18 History Physical Exam Vital signs: Vital Signs 02/25/18 11:54 02/25/18 12:00 02/25/18 13:00 Temperature 36.7 C Pulse Rate 82 72 Respiratory Rate 18 Blood Pressure 121/67 Pulse Oximetry 96 95 02/25/18 14:00 02/25/18 14:57 02/25/18 15:00 Temperature 36.6 C Pulse Rate 72 72 75 Respiratory Rate 18 Blood Pressure 119/71 Pulse Oximetry 94 L 02/25/18 16:00 02/25/18 17:00 02/25/18 18:00 Temperature Pulse Rate 71 74 75 Respiratory Rate Blood Pressure Pulse Oximetry 02/25/18 19:00 02/25/18 20:00 02/25/18 21:00 Temperature 36.6 C Pulse Rate 74 74 70 Respiratory Rate 18 Blood Pressure 136/78 Pulse Oximetry 96 02/25/18 22:00 02/25/18 23:00 02/26/18 00:00 Temperature 36.9 C Pulse Rate 70 73 74 Respiratory Rate 18 Blood Pressure 115/59 L Pulse Oximetry 92 L 02/26/18 01:00 02/26/18 02:00 02/26/18 03:00 Temperature Pulse Rate 68 70 76 Respiratory Rate Blood Pressure Pulse Oximetry 02/26/18 04:00 02/26/18 05:00 02/26/18 06:00 Temperature 36.6 C Pulse Rate 72 72 70 Respiratory Rate 18 Blood Pressure 107/61 Pulse Oximetry 93 L 02/26/18 10:55 Temperature Pulse Rate Respiratory Rate 12 Blood Pressure Pulse Oximetry 93 L Intake & Output 1202/26/18 02/26/18 18:59 06:59 18:59 Intake Total 810 / 810 360 / 360 2580 / 2580 Output Total 600 / 600 Balance 810 / 810 360 / 360 1979 / 1979 Weight 77 kg Intake: IV 1100 / 1100 LR 1000 mL Inj 1,000 ML @ 30 1000 / 1000 mls/hr IV.SIG .Q24H SHRUTHI Rx#: [id number] Ancef 1 GM Premix Inj 2 gm In 100 / 100 100 ml @ 0 mls/hr IV.SIG .STK- MED ONE Rx#:[id number] Oral 810 / 810 360 / 360 Anesthesia Amount 1000 / 1000 Cell Saver Amount 480 / 480 Output: Urine Amount (Catheter) 600 / 600 Indwelling Temp Sensing 600 / 600 Catheter Other: # Voids 2 2 Date of Last Bowel Movement 02/25/18 02/26/18 # Bowel Movements 1 Narrative: GENERAL: Middle-aged female, lying in bed, intubated, sedated, arousing from anesthesia. HEENT: Normocephalic. Atraumatic. Pupils equal, round, reactive, conjugate. Mucous membranes are moist NECK: Trachea is midline. There is no JVD. IJ introducer sheath in place, site clean dry and intact. CHEST: Equal chest rise. Midline median sternotomy wound VAC in place, slight is clean and dry. 2 chest tubes exit subxiphoid with approximately 30 mL's of sanguinous output. PRVC, PEEP 5, FiO2 40%, SPO2 91%. CARDIOVASCULAR: Normal rate, regular rhythm. Sinus. CVP of 8. Actively receiving a 250 cc bolus of normal saline ABDOMEN: Soft, nontender, nondistended. No guarding. MUSCULOSKELETAL: Pulses 2+. No peripheral edema. NEUROLOGICAL: RASS -3. Arousing from anesthesia. Moves all extremities. No focal deficits. - Urinary Catheter Management Indwelling Temp Sensing Catheter Cath placed during this visit: yes Reason for continuing: Hourly intake/output Insertion date: 02/26/18 Insertion time: 07:30 Assessment and Plan - Assessment and Plan Plan: Assessment: 48-year-old female postop day 0 status post on pump CABG x3 (MELO--> LAD, SVG-->Diag2, SVG--> PLB of RCA). admit to ICU. extubate on pathway if she remains stable. status post on pump CABG x3 (MELO-->LAD, SVG-->Diag2, SVG--> PLB of RCA) 12 CAD - ASA tomorrow - wean to extubate - watch chest tube output - close uop monitoring - trend lactates Diabetes - insulin drip - transition to SSI tomorrow HTN - hold anti-hypertensives today - likely need to restart in AM thrombocytopenia - hematology has been following - does not meet transfusion triggers at this time - chest tube output slowing, would not transfuse - am cbc Anemia secondary to acute blood loss - does not meet transfusion triggers at this time - AM cbc Etoh Dependence - watch for withdraw symptoms - likely needs benzos to prevent further withdraws - precedex infusion will help mitigate withdraw symptoms. keep najera today SCDs advance diet once extubated OOB with PT POD 1. Critical care will continue to follow while patient remains in the CVICU.
--- NOTE | 2018-02-26 11:38 | XR ---
EXAM DATE: 02/26/2018 11:35 AM EST AGE/SEX: 48 years / Female INDICATIONS: Post CABG. CLINICAL DATA: This is the patient's initial encounter. Patient reports that signs and symptoms have been present for 1 day and indicates a pain score of Nonresponsive. MEDICAL/SURGICAL HISTORY: . Diabetes. Hypercholesterolemia. Hypertension. . Cardiac cath. COMPARISON: [facility] [place], CHEST 2V PA&LAT, 02/20/2018. . FINDINGS: Patient is recently status post cardiothoracic surgery. Support devices are in place. There is no dat dence of pneumothorax. The lung elkins are well aerated bilaterally. The heart size is within normal limits. The bony structures are stable. CONCLUSION: Satisfactory postoperative view of the chest. Electronically signed by: Doyle Beltran MD 02/26/2018 11:36 AM EST
[2018-02-26] MEDS: Albumin Human 5% Inj 250 ML IV.SIG PRN (11:55)
[2018-02-26] MEDS: Docusate Sodium 100 MG Capsule PO SCH ×2 (12:21→20:54)
[2018-02-26] MEDS: Gabapentin 300 MG Capsule PO SCH ×3 (12:21→19:06)
--- NOTE | 2018-02-26 13:06 | P.DCO ---
- Diagnosis (1) S/P CABG (coronary artery bypass graft) Status: Acute (2) Chest pain, rule out acute myocardial infarction Status: Acute (3) Hypertension Status: Chronic (4) Diabetes Status: Chronic (5) Elevated LFTs Status: Acute (6) Thrombocytopenia Status: Acute - Home Health Nursing Order: Medical education, Signs/symptoms of disease process, Diabetic education , Wound care and dressing changes, Nursing assessment with vital signs Instructions: Heart and Vascular Surgery patients *Special attention to sternal dressing Mandatory frequency Assess and evaluation, 4 days in a row The next week 3X week 2 times a week for 4 weeks 1 time a week for 5 weeks Schedule Heart and Vascular patients for full 60 day certification period Initial visit Review Open Heart Surgery Discharge Instructions (Sternal precautions, Activity, Elastic hose, Incision care, Driving, Incentive spirometry, Smoking, [place], Work and other) Need Betadine to paint incision Medication reconciliation Importance of follow up care/ check on appointments Make calendar record temperature daily When to call [facility] at Home nurse, review instructions, phone list Incentive Spirometry, demonstration Visit 1- Begin discharge instruction for patient family and/ or caregiver using teach back method- Signs and symptoms of infection Disease characteristics Medicines and side effects Foods and nutrition/ appetite Infection control/ hand washing/ hygiene Visit 2- Continue teaching Discharge instructions- include additional information on smoking cessation , sternal dressing (sternal vac) Visit 3- Continue teaching- Cough and deep breathing, incision monitoring. Choose my plate Visit 4- Continue teaching- Discuss limitations Discuss how they are feeling Discuss progress toward goals Remaining visits- continue teaching and monitoring For any questions please call : Monday 8am-5pm Heart & Vascular Surgery Office ( Dr. Rodriguez & Dr. Velásquez), After Hours / Nights (5pm -8am) Weekends and Holidays Please call [facility] Cardiac Intermediate Care Unit (CIC) Charge Nurse PREVENA Single Use Negative Wound Therapy System Caregiver Instruction Sheet 1. A Prevena dressing system was applied to the chest incision during surgery , to promote wound healing. It works via a suction device (negative pressure wound therapy) to remove low to moderate levels of exudate (drainage) and infectious materials. We recommend that the device stay in place for up to seven days, from day of surgery. 2. Day of Surgery___/06/11 Day of Removal ___03/05/18 3. The dressing should only be removed by a health rn progressive care. Please arrange removal of device to coincide with Home Health visit and or with Nursing staff at Rehab 4. If skin reddening or irritation of skin occurs, or excessive drainage, please notify the Cardiovascular Surgeons office at [phone]. 5. Light showering is permissible; however the pump should be disconnected and placed in safe location, where it will not get wet. The dressing should not be exposed to direct spray or submerged in water. No bath tub / shower only. Ensure the end of the tubing attached to the dressing is facing down so that water does not enter the top of the tube. 6. To remove Prevena dressing: press purple button to turn off device / remove the suction. Then disconnect the tubing from the pump. The fixation strips should be stretched away from the skin and the dressing lifted at one corner and peeled back until it has been fully removed. 7. After removal, it is ok to shower daily using liquid dial soap and clean wash cloth, rinse and pat dry, and leave incision open to air dry. For any concerns regarding Prevena dressing, and or wounds, please contact Radha Kahn, patient navigator at [phone] or notify the Cardiovascular Surgeons office at [phone]. Incentive spirometry Q1 hr x 10, while awake, also use acapella device hourly whole awake Sternal Breast Bone Precautions: NO pushing or pulling, ( pt must use sternal pillow to support chest with all activities and with coughing ( takes up to 3 months breast bone to heal ) All females to wear sternal bra , launder as needed Daily incision care: ok to shower daily, no tub bath. Wash all incisions with liquid dial soap, clean wash cloth to each site, rinse and pat dry. Observe for any signs of infection, such as drainage which is dark yellow, caban, green or foul smelling. Immediately report to the surgeon any drainage from the chest incision, or legs, and for any abnormal drainage from the chest tube sites. Notify surgeon if any temp >101.5 degrees F. When specialty dressing removed/ or if you do not have one, continue to shower daily as above, then rinse and pat incision dry and paint with betadine daily x 5 days. Allow steri strips to fall off if you have any. Avoid lotions, creams, salves, oils, etc. for the first month Please see attached forms for additional instructions regarding post Open Heart specialty wound vacuum dressings. ALYSA or Prevena , Dressing to be removed by Nursing staff on __03/05/[address] Velásquez patients , please obtain CBC, BMP, PA & Lat CXR in 2 weeks, results to Dr. Velásquez ( prescription will be given) ( ) (Tele: [phone]) , F/U appointment: as per DC instructions: PCP in 2 weeks, CV surgeon 2 weeks, Market Intelligence Consultant 3-4 weeks For any questions regarding incisions/ dressing / meds / post op care or above Symptoms, Monday 8am-5pm Heart & Vascular Surgery Office ( Dr. Rodriguez & Dr. Velásquez), After Hours / Nights (5pm -8am) Weekends and Holidays Please call [facility] Cardiac Intermediate Care Unit (CIC) Charge Nurse - Case Management Consult Case Management Consult-Home Health: Yes - Certification I have seen patient Bree Leiva on 02/26/18. My clinical findings support the need for the requested home health care services because: Deconditioned with increased weakness I certify that my clinical findings support that this patient is homebound because: Post-op weakness (4) Diabetes Qualifiers: Diabetes mellitus type: type 2
[2018-02-26] MEDS: Amiodarone 200 MG Tablet PO SCH ×2 (13:33→22:25)
[2018-02-26] MEDS: fentaNYL Citrate Inj 100 MCG/2 ML Ampul IV.PUSH PRN ×3 (14:35→22:26)
--- NOTE | 2018-02-26 15:39 | P.OP ---
- Preoperative Diagnosis (1) Unstable angina (2) CAD (coronary artery disease), zuni coronary artery Postoperative Diagnosis: same Date of procedure: 02/26/18 Procedure: CABG x 3 MELO to LAD - good SVG to D2 - good SVG to PLB - good EVH Anesthesia: GETA Surgeon: Ashlie Velásquez MD Software Quality Assurance Specialist: Siddharth Morelos Pathology: none sent Operation and Findings: The risks, benefits, complications, treatment options, and expected outcomes were discussed with the patient. The possibilities of reaction to medication, pulmonary aspiration, perforation of viscus, bleeding, recurrent infection, the need for additional procedures, failure to diagnose a condition, and creating a complication requiring transfusion or operation were discussed with the patient. The patient concurred with the proposed plan, giving informed consent. The site of surgery properly noted/marked. The patient was taken to Operating Room, identified as Bree Leiva and the procedure verified as CABG, EVH. A Time Out was held and the above information confirmed. Standard monitoring lines and Conner catheter were placed. General anesthesia was induced. The patient was prepped and draped in a sterile fashion. A median sternotomy was performed and electrocautery was used to obtain hemostasis. The left internal mammary artery was procured as a pedicle from the 7th rib to the 1st rib in the usual manner. Simultaneously left greater saphenous vein was procured from the left leg using a minimally invasive endoscopic technique. The vein was prepared for anastomosis and the leg wound was irrigated and closed in 2 layers. The pericardium was opened and a pericardial sling was created using interrupted 0 silk sutures. The patient was heparinized for cardiopulmonary bypass and the distal mammary pedicle was instrumented for anastomosis. The heart was instrumented for cardiopulmonary bypass in the usual manner. Antegrade blood cardioplegia was employed. The patient was placed on cardiopulmonary bypass. An aortic cross-clamp was applied and the heart was arrested using cold blood cardioplegia. Antegrade cardioplegia was administered after he each anastomosis. After adequate arrest, the distal right coronary circulation was investigated and the PLB was opened with a [place] blade and found to be a 1.5 millimeter good target. Saphenous vein was approximated to the PLB artery using a running 7 0 Prolene suture. The graft was measured for length and orientation and the proximal anastomosis was constructed to the ascending aorta using a running 5 0 Prolene suture after creating an aortotomy with a 5 millimeter punch. The 2nd diagonal artery was then opened with a [place] blade and found to be a 1.5 millimeter good target. Saphenous vein was approximated to the D2 artery using a running 7 0 Prolene suture. The graft was measured for length and orientation and was suspended from the pericardium. The distal LAD was opened with a [place] blade and found to be a 1.5 millimeter good target. The left internal mammary artery was approximated to the LAD using a running 7 0 Prolene suture. The pedicle was attached to the epicardium using interrupted 5 0 silk suture. The patient was systemically rewarmed and received a hotshot dose of warm blood cardioplegia. The aorta was vented and the proximal anastomosis to the D2 graft was accomplished using a running 5 0 Prolene suture after creating an aortotomy was a 5 millimeter punch. The cross-clamp was removed and all proximal and distal anastomoses were examined for hemostasis. The patient was weaned from cardiopulmonary bypass. Protamine was given. There was no adverse reaction. Decannulation was carried out without incident. Wound was checked for hemostasis which was obtained using electrocautery. A 36 [place] mediastinal and 32 [place] left pleural chest tubes were placed and secured to the skin with 0 silk suture. The sternum was closed with stainless steel wire. The fascia was closed with 1. PDS. The subcutaneous tissue was closed using a running 2-0 Vicryl suture. The skin was closed with 4-0 Monocryl. Sterile dressings were placed. At the end of the operation, all sponge, instruments, and needle counts were correct. The patient was transferred to the CVICU in stable condition. Findings: good distal targets XC: 50 min CPB: 62 min Drains: mediastinal x 1 pleural x 1 Complications: none
[2018-02-26] MEDS: ceFAZolin 1 GM Premix Inj 1 GM/50 ML IV.SIG SCH ×2 (16:05→23:40)
[2018-02-26] MEDS: Amitriptyline 10 MG Tablet PO SCH (20:53)
[2018-02-26] MEDS: LORazepam 1 MG Tablet PO PRN (21:03)
[2018-02-27] MEDS: fentaNYL Citrate Inj 100 MCG/2 ML Ampul IV.PUSH PRN ×3 (01:15→03:38)
[2018-02-27] MEDS: LORazepam 1 MG Tablet PO PRN (02:54)
[2018-02-27] MEDS: Insulin NovoLOG Aspart Correctional Sugar Inj SQ SCH ×5 (04:00→23:00)
[2018-02-27 04:22] LABS: Hematocrit 35.4 % (35.0-46.0); Hemoglobin 12.1 gm/dL (11.6-15.3); Mean Corpuscular HGB Conc 34.2 % (32.0-36.0); Mean Corpuscular Hemoglobin 35.2 pg (27.0-34.0); Mean Corpuscular Volume 102.8 fL (80.0-100.0); Mean Platelet Volume 10.7 fL (7.0-11.0); Platelet Count 102 th/mm3 (150-450); Red Blood Count 3.44 mil/mm3 (4.00-5.30); Red Cell Distribution Width 14.5 % (11.6-17.2); White Blood Count 8.7 th/mm3 (4.0-11.0)
[2018-02-27 04:52] LABS: Anion Gap 6 meq/L (5-15); Blood Urea Nitrogen 12 mg/dL (7-18); Calcium 7.6 mg/dL (8.5-10.1); Carbon Dioxide 28.2 meq/L (21.0-32.0); Chloride 104 meq/L (98-107); Glomerular Filtration Rate Greater Than 89 mL/min (>89); Glucose,Random 105 mg/dL (74-106); Magnesium 2.1 mg/dL (1.5-2.5); Potassium 4.9 meq/L (3.5-5.1); Sodium 138 meq/L (136-145)
--- NOTE | 2018-02-27 06:08 | XR ---
EXAM DATE: 02/27/2018 6:01 AM EST AGE/SEX: 48 years / Female INDICATIONS: Chest pain, shortness of breath. CLINICAL DATA: This is the patient's subsequent encounter. Patient reports that signs and symptoms h ave been present for 1 week and indicates a pain score of 9/10. MEDICAL/SURGICAL HISTORY: Hypertension. Diabetes mellitus type II. CABG. [place] [facility] [place]. . FINDINGS: A single AP view of the chest demonstrates 2 subxiphoid thoracostomy tubes on the left. A left subcla vian central line. No pneumothorax. Mild bibasilar atelectasis. No effusions. Heart is at the upper l imits of normal in terms of size. Median sternotomy wires. CONCLUSION: Mild bibasilar atelectasis. Electronically signed by: Serge Guillen MD 02/27/2018 6:07 AM EST
[2018-02-27] MEDS: Amiodarone 200 MG Tablet PO SCH ×3 (07:56→21:03)
--- NOTE | 2018-02-27 08:18 | ECG ---
Date Performed: 02/27/2018 Time Performed: 03:14:18 PTAGE: 48 years EKG: Baseline artifact present Sinus rhythm Low QRS voltages in precordial leads Borderline ECG Compared to prior electrocardiogram, Voltage has decreased PREVIOUS TRACING : 02/20/2018 14.37 DOCTOR: Fredy Purdy Interpretating Date/Time 02/27/2018 08:18:02
[2018-02-27] MEDS ORDERED: Bisacodyl 10 MG Supp RECTAL PRN (08:55)
[2018-02-27] MEDS ORDERED: Dextrose 50% in Water 50 ML Vial IV.PUSH PRN (08:55)
[2018-02-27] MEDS ORDERED: Sod Phosphate/Sod Biphosphate (Adult) Enema 133 ML Bottle RECTAL PRN (08:55)
[2018-02-27] MEDS ORDERED: Insulin Detemir Inj 1,000 UNIT/10 ML Vial SQ ONE (08:55)
[2018-02-27] MEDS: Docusate Sodium 100 MG Capsule PO SCH ×2 (09:14→21:03)
[2018-02-27] MEDS: Gabapentin 300 MG Capsule PO SCH ×3 (09:14→17:24)
[2018-02-27] MEDS: ceFAZolin 1 GM Premix Inj 1 GM/50 ML IV.SIG SCH ×2 (09:15→15:07)
[2018-02-27] MEDS ORDERED: Albumin Human 5% Inj 250 ML IV.SIG ONE (09:27)
[2018-02-27] MEDS: Albumin Human 5% Inj 250 ML IV.SIG PRN (09:27)
[2018-02-27] MEDS: Multivitamin/Minerals Therapeutic Tablet PO SCH (09:36)
--- NOTE | 2018-02-27 10:28 | P.PNIM ---
Subjective Interval history: Pt doing well this morning, she is post-op CABG x 3 on 02/26/18 Tolerating oral intake Afebrile On 2L via NC and saturating well. Some complaints of post-surgical chest discomfort but overall doing well. Physical Exam Vital signs: Last Vital Signs Temp 98.4 F 02/27/18 03:00 Pulse 91 H 02/27/18 06:00 Resp 16 02/27/18 07:55 BP 94/53 L 02/27/18 03:00 Pulse Ox 96 02/27/18 10:04 Narrative: General: NAD, AAOx3 Chest: CTA Cardiac: Regular, mid sternal bandages are c/d/i with CT in place. Abd: +BS, soft ND/NT Ext: No edema Results Labs CBC & Chem 7: 02/27/18 04:00 02/27/18 04:00 Imaging Chest X-Ray 02/20/18 07:28 CONCLUSION: Negative examination. Gallbladder Ultrasound 02/20/18 11:54 CONCLUSION: Mild probable hepatic steatosis. Myocardial Perfusion Scan Nuc Med 02/20/18 14:59 CONCLUSION: Moderate sized moderate severity reversible anterior wall and apical perfusion abnormality. Carotid Doppler Study 02/21/18 13:57 CONCLUSION: 1. Right Internal Carotid Artery: Mild plaquing with no evidence of stenosis. 2. Left Internal Carotid Artery: Mild plaquing with no evidence of stenosis. Lower Extremity Ultrasound 02/21/18 13:57 CONCLUSION: 1. Venous mapping study as described. Venous Doppler Study 02/21/18 13:57 CONCLUSION: The study is negative for bilateral lower extremity deep venous thrombosis. Thoracic Aorta CT 02/22/18 00:00 CONCLUSION: Unremarkable CTA evaluation. Specifically no evidence of subclavian stenosis as questioned. Spleen Ultrasound 02/22/18 08:00 CONCLUSION: 1. The examination demonstrates normal echotexture with the spleen length of 12.8 cm. This is at the upper limits of normal in size. Chest X-Ray 02/26/18 10:36 CONCLUSION: Satisfactory postoperative view of the chest. Chest X-Ray 02/27/18 05:00 CONCLUSION: Mild bibasilar atelectasis. Assessment and Plan Plan Chest pain Abnormal stress test - Pt is a 48 y/o female with hypertension, diabetes, and family history of heart disease that was admitted to the [facility] on 02/20/18 with complaints of chest discomfort. Patient states that she just has not been feeling well last approximately 3 weeks. States she has been vomiting quite often. Out of the 3 weeks she has probably had 9 or 10 days of vomiting multiple times each of those days. When this occurs she has a discomfort in the center/right side of her chest radiating to the neck. The discomfort is described as a burning, lasting about 30 minutes and will typically resolve on its own. At times she has become short of breath and diaphoretic. The night prior to admission she developed the same burning pain which lasted longer than it had previously. - In the [facility] she had three sets of CE which were negative - Nuclear stress test (02/20/18) - Moderate sized moderate severity reversible anterior wall and apical perfusion abnormality. - Cardiology was consulted and pt was transferred to the Hospitalist team - Pt underwent LHC (02/21/18) --> Ejection fraction of 70%, proximal LAD 20%, mid distal LAD 90%, the diagonal 95% and the RCA 80%. - Carotid Doppler Study (02/21/18) 1. Right Internal Carotid Artery: Mild plaquing with no evidence of stenosis. 2. Left Internal Carotid Artery: Mild plaquing with no evidence of stenosis. - Cont. ASA 325mg daily - Metoprolol 25mg BID and Norvasc 5mg daily. Lisinopril on hold - Pt s/p CABG x 3 on 02/26/[address] Velásquez Diabetes mellitus, type 2 - At home pt is on Amaryl 4mg po BID and Metformin 500mg BID, which are recent increases in her doses - Her last Hgb A1C in August 2017 was 11.3% but has been as high as 13% in 2017. - HgA1C 10.1 (02/23/18) - She has been noncompliant with referrals to Endocrinology. - Levemir to 10 units BID and Amaryl 4mg BID have been on hold since prior to surgery. BS are currently stable on high dose SSI. - As the pts po intake improves her diabetes meds will likely need cira resumed. - continue to hold metformin d/t recent contrast study. Peripheral neuropathy - She takes Gabapentin 600mg HS and Cymbalta 30mg daily for her neuropathy which she does not feel helps much. The source of her neuropathy is unclear. She is supposed to be having EMG studies done as an outpt which she missed her appt for that. Per Dr. French outpt notes pt will likely require doses of Gabapentin upwards of 1800mg to get effect. - suspect diabetic peripheral neuropathy. Pt has good pulses in her LEs - increase current neurontin dosing to 300mg TID - anticipate that symptoms will improve with improved glycemic control - continue prn percocet & morphine - Colace BID and prn MOM - In review of outpt records she had been prescribed Lyrica 50mg TID in the past but she could not afford this. Alcohol abuse - [facility] protocol - Librium stopped due to sedation, pts last alcoholic beverage was on 02/18/18. - Monitor for DTs Thrombocytopenia Fatty liver likely secondary to alcohol use Splenomegaly - Gallbladder Ultrasound (02/20/18) --> Mild probable hepatic steatosis - Spleen Ultrasound (02/22/18) --> The examination demonstrates normal echotexture with the spleen length of 12.8 cm. This is at the upper limits of normal in size. - admission Platelet count of 102,000 on 02/27. - platelet 69 (02/21), 73 (02/22), 85 (02/23), 92 (02/24), 98 (02/25) - appreciate input from Hematology, Dr. Alva - HIT Abs negative - Lupus anticoagulant and anticardiolipin antibody panel are negative. - PT, PTT are prolonged which is suspected to be due to her liver disease. Coags improving Progress Note: Quality VTE Deep Vein Thrombosis/Pulmonary Embolism Present on Admission: No
--- NOTE | 2018-02-27 11:55 | P.PNONC ---
Subjective Interval history: Patient sitting in recliner, doing breathing exercises. Her is at the bedside. She is day 1 postop from CABG x3 yesterday. Objective Vital Signs/Intake & Output: Vital Signs 02/26/18 12:24 02/26/18 12:37 02/26/18 12:42 Temperature 98.1 F Pulse Rate 95 H 98 H 110 H Respiratory Rate 6 L Blood Pressure 106/78 Pulse Oximetry 99 02/26/18 13:17 02/26/18 13:18 02/26/18 14:28 Temperature 97.8 F Pulse Rate 119 H 92 H Respiratory Rate Blood Pressure Pulse Oximetry 97 100 02/26/18 15:03 02/26/18 15:04 02/26/18 15:55 Temperature 97.8 F Pulse Rate 95 H 95 H 99 H Respiratory Rate 12 20 Blood Pressure Pulse Oximetry 97 02/26/18 15:59 02/26/18 16:03 02/26/18 16:04 Temperature Pulse Rate 103 H Respiratory Rate 12 Blood Pressure Pulse Oximetry 98 96 96 02/26/18 16:05 02/26/18 17:06 02/26/18 17:09 Temperature Pulse Rate 97 H Respiratory Rate 12 14 14 Blood Pressure Pulse Oximetry 96 02/26/18 17:20 02/26/18 18:00 02/26/18 19:00 Temperature Pulse Rate 94 H 93 H 85 Respiratory Rate 12 Blood Pressure Pulse Oximetry 02/26/18 20:00 02/26/18 21:20 02/26/18 22:00 Temperature 97.9 F Pulse Rate 90 95 H Respiratory Rate 16 16 16 Blood Pressure 109/77 Pulse Oximetry 94 L 97 02/26/18 22:56 02/26/18 23:00 02/27/18 01:44 Temperature 98.4 F Pulse Rate 98 H Respiratory Rate 16 16 16 Blood Pressure 101/59 L Pulse Oximetry 93 L 02/27/18 01:45 02/27/18 02:55 02/27/18 03:00 Temperature 98.4 F Pulse Rate 90 Respiratory Rate 16 16 16 Blood Pressure 94/53 L Pulse Oximetry 94 L 02/27/18 03:38 02/27/18 04:30 02/27/18 04:48 Temperature Pulse Rate 99 H 92 H Respiratory Rate 16 18 Blood Pressure Pulse Oximetry 02/27/18 05:00 02/27/18 06:00 02/27/18 07:00 Temperature 97.8 F Pulse Rate 91 H 104 H Respiratory Rate 16 16 Blood Pressure 111/72 Pulse Oximetry 97 02/27/18 07:55 02/27/18 10:04 02/27/18 11:00 Temperature 98.2 F Pulse Rate 93 H Respiratory Rate 16 18 Blood Pressure 106/62 Pulse Oximetry 96 94 L Intake & Output 02/26/18 02/27/18 02/27/18 18:59 06:59 18:59 Intake Total 4230 / 4230 250 / 250 730 / 730 Output Total 2410 / 2410 930 / 930 Balance 1820 / 1820 250 / 250 -200 / -200 Weight 77 kg Intake: IV 2700 / 2700 250 / 250 250 / 250 NovoLIN R (IV Infusion) 100 100 / 100 UNIT In NS Inj 99 ML @ 3 UNITS/ HR 3 mls/hr IV.CONT TITRATE PRN Rx#:[id number] Ofirmev Inj 1,000 mg In 100 ml 200 / 200 200 / 200 @ 400 mls/hr IV.SIG Q6H KAMRYN Rx# :[id number] Buminate 5% Inj 250 ML @ 250 250 / 250 250 / 250 mls/hr IV.SIG UNSCH PRN Rx#: [id number] LR 1000 mL Inj 500 ML @ 500 mls 2000 / 2000 /hr IV.SIG .Q1H PRN Rx#: [id number] Ancef 1 GM Premix Inj 1 gm In 150 / 150 50 / 50 50 ml @ 100 mls/hr IV.SIG Q8H KAMRYN Rx#:[id number] Oral 50 / 50 480 / 480 Anesthesia Amount 1000 / 1000 Cell Saver Amount 480 / 480 Output: Urine Amount (Catheter) 2109 / 2109 800 / 800 Indwelling Temp Sensing 2109 / 2109 800 / 800 Catheter Chest Tube Drainage 300 / 300 130 / 130 Pleural/Mediastinal 300 / 300 130 / 130 Other: Date of Last Bowel Movement 02/26/18 # Bowel Movements 0 Result Diagrams: 02/27/18 04:00 02/27/18 04:00 Laboratory Results: Laboratory Results - last 24 hr 02/25/18 02/26/18 02/26/18 04:55 12:04 13:23 WBC RBC Hgb Hct MCV MCH MCHC RDW Plt Count MPV Sodium Potassium Chloride Carbon Dioxide Anion Gap BUN Creatinine Estimated GFR POC Glucose 143 H 151 H Random Glucose Calcium Magnesium Blood Type AB Positive Blood Type Recheck Required Antibody Screen Negative MTS Gel Crossmatch See Detail Bld Prod Order Comment 02/26/18 02/26/18 02/26/18 14:24 15:19 16:15 WBC RBC Hgb Hct MCV MCH MCHC RDW Plt Count MPV Sodium Potassium Chloride Carbon Dioxide Anion Gap BUN Creatinine Estimated GFR POC Glucose 151 H 196 H 185 H Random Glucose Calcium Magnesium Blood Type Blood Type Recheck Antibody Screen MTS Gel Crossmatch Bld Prod Order Comment 02/26/18 02/26/18 02/26/18 17:14 17:56 19:02 WBC RBC Hgb Hct MCV MCH MCHC RDW Plt Count MPV Sodium Potassium Chloride Carbon Dioxide Anion Gap BUN Creatinine Estimated GFR POC Glucose 186 H 196 H 167 H Random Glucose Calcium Magnesium Blood Type Blood Type Recheck Antibody Screen MTS Gel Crossmatch Bld Prod Order Comment 02/26/18 02/26/18 02/26/18 20:06 21:11 22:20 WBC RBC Hgb Hct MCV MCH MCHC RDW Plt Count MPV Sodium Potassium Chloride Carbon Dioxide Anion Gap BUN Creatinine Estimated GFR POC Glucose 200 H 153 H 160 H Random Glucose Calcium Magnesium Blood Type Blood Type Recheck Antibody Screen MTS Gel Crossmatch Bld Prod Order Comment 02/26/18 02/27/18 02/27/18 23:13 00:19 01:08 WBC RBC Hgb Hct MCV MCH MCHC RDW Plt Count MPV Sodium Potassium Chloride Carbon Dioxide Anion Gap BUN Creatinine Estimated GFR POC Glucose 173 H 142 H 132 H Random Glucose Calcium Magnesium Blood Type Blood Type Recheck Antibody Screen MTS Gel Crossmatch Bld Prod Order Comment 02/27/18 02/27/18 02/27/18 02:17 03:33 04:00 WBC 8.7 RBC 3.44 L Hgb 12.1 Hct 35.4 MCV 102.8 H MCH 35.2 H MCHC 34.2 RDW 14.5 Plt Count 102 L MPV 10.7 Sodium Potassium Chloride Carbon Dioxide Anion Gap BUN Creatinine Estimated GFR POC Glucose 120 H 97 Random Glucose Calcium Magnesium Blood Type Blood Type Recheck Antibody Screen MTS Gel Crossmatch Bld Prod Order Comment 02/27/18 02/27/18 02/27/18 04:00 07:59 09:43 WBC RBC Hgb Hct MCV MCH MCHC RDW Plt Count MPV Sodium 138 Potassium 4.9 D Chloride 104 Carbon Dioxide 28.2 Anion Gap 6 BUN 12 Creatinine 0.51 Estimated GFR Greater than 89 POC Glucose 146 H 207 H Random Glucose 105 D Calcium 7.6 L D Magnesium 2.1 Blood Type Blood Type Recheck Antibody Screen MTS Gel Crossmatch Bld Prod Order Comment Imaging Studies: Impressions Chest X-Ray 02/27/18 05:00 CONCLUSION: Mild bibasilar atelectasis. Medications: Active Medications Generic Name Dose Route Start Last Admin Trade Name Freq PRN Reason Stop Dose Admin Al Hydroxide/Mg Hydroxide 30 ml 02/27/18 09:00 02/27/18 09:49 Milk Of Betty Liq PO Not Given DAILY KAMRYN Amiodarone HCl 400 mg 02/26/18 14:00 02/27/18 07:56 Cordarone PO 400 mg Q8HR KAMRYN Administration Amitriptyline HCl 10 mg 02/20/18 21:00 02/26/18 20:53 Elavil PO 10 mg HS KAMRYN Administration Aspirin 81 mg 02/21/18 10:54 02/27/18 09:14 Ecotrin PO 81 mg DAILY KAMRYN Administration Atorvastatin Calcium 20 mg 02/24/18 21:00 02/26/18 20:54 Lipitor PO 20 mg HS KAMRYN Administration Sodium Chloride 77.5 ml/ 0 ml 02/21/18 14:00 02/26/18 08:59 Papaverine HCl 60 mg/ IRRIGATION 02/27/18 13:57 1 bag Nitroglycerin 100 mcg/ TIME CYCLE OPERATOR KAMRYN Administration Diltiazem HCl 100 mg Sodium Chloride 500 ml/ 0 ml 02/21/18 14:00 02/26/18 08:59 Cefazolin Sodium 500 mg IRRIGATION 02/27/18 13:59 1 bag TIME CYCLE OPERATOR KAMRYN Administration Docusate Sodium 100 mg 02/23/18 10:30 02/27/18 09:14 Colace PO 100 mg BID KAMRYN Administration Duloxetine HCl 30 mg 02/21/18 09:00 02/27/18 09:14 Cymbalta PO 30 mg DAILY KAMRYN Administration Gabapentin 300 mg 02/23/18 13:00 02/27/18 09:14 Neurontin PO 300 mg TID KAMRYN Administration Glimepiride 4 mg 02/23/18 21:00 02/25/18 09:14 Amaryl PO 4 mg BID KAMRYN Administration Lactated Ringer's 500 mls @ 500 mls/hr 02/26/18 10:36 02/26/18 13:30 Lr 1000 Ml Inj IV.SIG Infused .Q1H PRN Infusion SEE LABEL COMMENTS Cefazolin Sodium/Dextrose 1 gm in 50 mls @ 100 mls/hr 02/26/18 16:00 09:15 Ancef 1 Gm Premix Inj IV.SIG 02/28/18 00:29 100 mls/hr Q8H KAMRYN Administration Insulin Aspart 0 unit 02/27/18 10:00 02/27/18 09:49 Novolog Insulin Correctional Sugar Inj SQ 02/28/18 09:59 14 unit 02,06,10,14,18,22 KAMRYN Administration Protocol Insulin Detemir 10 unit 02/22/18 21:00 02/25/18 09:13 Levemir Inj SQ 10 unit BID KAMRYN Administration Lorazepam 1 mg 02/20/18 21:11 02/27/18 02:54 Ativan PO 1 mg Q4H PRN Administration for CIWA 8-10 Multivitamins/Minerals 1 tab 02/27/18 09:00 02/27/18 09:36 Theragran-M PO 1 tab DAILY KAMRYN Administration Ondansetron HCl 4 mg 02/20/18 11:53 02/20/18 14:30 Zofran Inj IV.PUSH 4 mg Q6H PRN Administration NAUSEA Oxycodone/Acetaminophen 1 tab 02/27/18 11:00 02/27/18 11:00 Percocet 7.5/325 Mg PO 1 tab Q4H PRN Administration Acute Pain 1-5 Pantoprazole Sodium 40 mg 02/20/18 17:30 02/27/18 09:14 Protonix PO 40 mg DAILY KAMRYN Administration Sodium Chloride 2 ml 02/26/18 21:00 02/27/18 09:15 Ns Flush IV.FLUSH 2 ml BID KAMRYN Administration Objective Remarks: GENERAL: Well-nourished, well-developed middle-aged female patient, in no acute distress. SKIN: Warm and dry. Surgical bandage to sternum. Keith bandage to left lower extremity. HEAD: Normocephalic. EYES: No scleral icterus. No injection or drainage. NECK: Supple, trachea midline. CARDIOVASCULAR: Regular rate and rhythm without murmurs. RESPIRATORY: Breath sounds equal bilaterally. No accessory muscle use.+ Chest tube GASTROINTESTINAL: Abdomen large, soft, non-tender, nondistended. EXTREMITIES: No cyanosis, or edema. RLE SCD, LLE Keith wrap. MUSCULOSKELETAL: Adequate muscle tone. NEUROLOGICAL: Awake, lethargic, and oriented x3. Assessment/Plan - Plan Ms. Leiva is a 48-year-old female patient with multiple medical problems including diabetes, hypertension, high cholesterol and fatty liver secondary to alcohol use. Recently presented to the hospital with chest pain and diagnosed with coronary artery disease requiring coronary artery bypass grafting. Hematology was consulted for thrombocytopenia. 1. Thrombocytopenia likely due to fatty liver, alcoholism and hypersplenism. Defer bone marrow biopsy evaluation for now. Lupus anticoagulant and antiphospholipid antibodies negative. Platelet count 102,000 today, status post CABG x3 yesterday. We will continue to monitor. 2. Patient will need follow-up with gastroenterology upon discharge for fatty liver disease. 3. Repeat CBC in the a.m. - Attending Statement The exam, history, and the medical decision-making described in the above note were completed with the assistance of the mid-level provider. I reviewed and agree with the findings presented. I attest that I had a [id number] encounter with the patient on the same day, and personally performed and documented my assessment and findings in the medical record. Sleepy, at bedside. Follow up platelet count > 100K. No bleeding. OOB today. Encouraged by her progress. Continue to follow platelet count. No transfusion needed.
--- NOTE | 2018-02-27 14:27 | P.PNCV ---
- Note Subjective/Hospital Course: A 48-year-old female, patient of Dr. Montez Piedra, patient of Dr. Bar, presented to the emergency room with chest pain. She apparently had not been feeling well for the last couple of weeks. She has had some nausea. On the evening that she presented, she woke up with some burning in her chest. It lasted a couple of hours. She underwent workup in the chest pain center. Troponins were negative; however, her nuclear stress test showed moderate-sized severe irreversible anterior wall apical perfusion abnormality. She underwent cardiac catheterization by Dr. Bar this morning, which showed an ejection fraction of 70%, proximal LAD 20%, mid distal LAD 90%, the diagonal 95% and the RCA 80%. We were consulted to evaluate for coronary artery bypass grafting. She was also found to have a diagnosis of thrombocytopenia, fatty liver secondary to alcohol use. Hematology has been consulted, recommendation to administer platelets as needed for platelet count less than 50,000 or acute bleeding. PMH: DM HTN 02/22 HIT panel and park neg PLT improved to 73 on scheduled Librium, no signs of withdrawal await results fo CT chest aorta , eval for left subclavian stenosis if stable , will eval for surgery monday or friday 02/23 surgery scheduled for Monday CTA: chest unremarkable. Specifically no evidence of subclavian stenosis as questioned. HGB a1c 10 will need a glucometer at discharge / consult clinical staff educator PLT 85K 02/26 surgery Date of procedure: 02/26/18 Procedure: CABG x 3 MELO to LAD - good SVG to D2 - good SVG to PLB - good EVH extubated after surgery 2000cc crystalloid , 500cc cell saver some agitation last night / some confusion/ resolved 02/27 up in chair, on nasal cannula pain med increased pulm toileting , levemir to wean off insulin gtt await clinical staff educator / she will need glucometer prior to dc no current signs of withdrawal transfer to stepdown I Objective: Vital Signs - 24 hr 02/26/18 14:28 02/26/18 15:03 02/26/18 15:04 Temperature 97.8 F Pulse Rate 92 H 95 H 95 H Respiratory Rate 12 Blood Pressure Pulse Oximetry 97 02/26/18 15:55 02/26/18 15:59 02/26/18 16:03 Temperature Pulse Rate 99 H 103 H Respiratory Rate 20 12 Blood Pressure Pulse Oximetry 98 96 02/26/18 16:04 02/26/18 16:05 02/26/18 17:06 Temperature Pulse Rate 97 H Respiratory Rate 12 14 Blood Pressure Pulse Oximetry 96 96 02/26/18 17:09 02/26/18 17:20 02/26/18 18:00 Temperature Pulse Rate 94 H 93 H Respiratory Rate 14 12 Blood Pressure Pulse Oximetry 02/26/18 19:00 02/26/18 20:00 02/26/18 21:20 Temperature 97.9 F Pulse Rate 85 90 Respiratory Rate 16 16 Blood Pressure 109/77 Pulse Oximetry 94 L 02/26/18 22:00 02/26/18 22:56 02/26/18 23:00 Temperature 98.4 F Pulse Rate 95 H 98 H Respiratory Rate 16 16 16 Blood Pressure 101/59 L Pulse Oximetry 97 93 L 02/27/18 01:44 02/27/18 01:45 02/27/18 02:55 Temperature Pulse Rate Respiratory Rate 16 16 16 Blood Pressure Pulse Oximetry 02/27/18 03:00 02/27/18 03:38 02/27/18 04:30 Temperature 98.4 F Pulse Rate 90 99 H Respiratory Rate 16 16 Blood Pressure 94/53 L Pulse Oximetry 94 L 02/27/18 04:48 02/27/18 05:00 02/27/18 06:00 Temperature Pulse Rate 92 H 91 H Respiratory Rate 18 16 Blood Pressure Pulse Oximetry 02/27/18 07:00 02/27/18 07:55 02/27/18 10:04 Temperature 97.8 F Pulse Rate 104 H Respiratory Rate 16 16 Blood Pressure 111/72 Pulse Oximetry 97 96 02/27/18 11:00 Temperature 98.2 F Pulse Rate 93 H Respiratory Rate 18 Blood Pressure 106/62 Pulse Oximetry 94 L GENERAL: A&O x 3 SKIN: Warm and dry. prevena dressing to chest / izabel wrap to left leg HEAD: Normocephalic. EYES: No scleral icterus. No injection or drainage. NECK: Supple, trachea midline. No JVD or lymphadenopathy. CARDIOVASCULAR: Regular rate and rhythm without murmurs, gallops, or rubs. RESPIRATORY: Breath sounds equal bilaterally. No accessory muscle use. chest tube to wall suction GASTROINTESTINAL: Abdomen soft, non-tender, nondistended. MUSCULOSKELETAL: No cyanosis, or edema. BACK: Nontender without obvious deformity. No CVA tenderness. Labs: Laboratory Results - last 12 hr 02/27/18 02/27/18 02/27/18 02:17 03:33 04:00 WBC 8.7 RBC 3.44 L Hgb 12.1 Hct 35.4 MCV 102.8 H MCH 35.2 H MCHC 34.2 RDW 14.5 Plt Count 102 L MPV 10.7 Sodium Potassium Chloride Carbon Dioxide Anion Gap BUN Creatinine Estimated GFR POC Glucose 120 H 97 Random Glucose Calcium Magnesium 02/27/18 02/27/18 02/27/18 04:00 07:59 09:43 WBC RBC Hgb Hct MCV MCH MCHC RDW Plt Count MPV Sodium 138 Potassium 4.9 D Chloride 104 Carbon Dioxide 28.2 Anion Gap 6 BUN 12 Creatinine 0.51 Estimated GFR Greater than 89 POC Glucose 146 H 207 H Random Glucose 105 D Calcium 7.6 L D Magnesium 2.1 Result Diagrams: 02/27/18 04:00 02/27/18 04:00 - Plan (4) Diabetes (6) Thrombocytopenia Plan: PLT improving Lupus anticoagulant and anticardiolipin antibody panel are pending. PT, PTT are prolonged which is suspected to be due to her liver disease. Coags improving hematology following (7) CAD (coronary artery disease), [place] coronary artery Plan: for surgery on Monday (9) Alcohol abuse Plan: on scheduled Librium , no signs of withdrawal (4) Diabetes Qualifiers: Diabetes mellitus type: type 2
--- NOTE | 2018-02-27 15:41 | P.PNCC ---
Subjective Subjective Remarks/Hospital Course: Hospital Course: 48yF with history of etoh abuse who was found to have multivessel disease and now presents for urgent on-pump CABG x 3 (MELO-->LAD, SVG-->diag2,SVG-->PLB of RCA). She underwent uncomplicated operation. She arrives to the CVICU in stable condition, intubated, sedated from anesthesia. her chest tubes have put out 200cc blood over a time course of 4 hours and are slowing down. her uop is adequate, her lactate is clearing. of note, she has a baseline thrombocytopenia which is being worked up by hematology. no additional information is available from the patient due to her being intubated postoperatively. ROS unobtainable. Subjective: 02/27: doing well. extubated. denies complaints. OOB to chair. ROS negative. Objective Vital Signs / I&O: Vital Signs 02/26/18 15:55 02/26/18 15:59 02/26/18 16:03 Temperature Pulse Rate 99 H 103 H Respiratory Rate 20 12 Blood Pressure Pulse Oximetry 98 96 02/26/18 16:04 02/26/18 16:05 02/26/18 17:06 Temperature Pulse Rate 97 H Respiratory Rate 12 14 Blood Pressure Pulse Oximetry 96 96 02/26/18 17:09 02/26/18 17:20 02/26/18 18:00 Temperature Pulse Rate 94 H 93 H Respiratory Rate 14 12 Blood Pressure Pulse Oximetry 02/26/18 19:00 02/26/18 20:00 02/26/18 21:20 Temperature 36.6 C Pulse Rate 85 90 Respiratory Rate 16 16 Blood Pressure 109/77 Pulse Oximetry 94 L 02/26/18 22:00 02/26/18 22:56 02/26/18 23:00 Temperature 36.9 C Pulse Rate 95 H 98 H Respiratory Rate 16 16 16 Blood Pressure 101/59 L Pulse Oximetry 97 93 L 02/27/18 01:44 02/27/18 01:45 02/27/18 02:55 Temperature Pulse Rate Respiratory Rate 16 16 16 Blood Pressure Pulse Oximetry 02/27/18 03:00 02/27/18 03:38 02/27/18 04:30 Temperature 36.9 C Pulse Rate 90 99 H Respiratory Rate 16 16 Blood Pressure 94/53 L Pulse Oximetry 94 L 02/27/18 04:48 02/27/18 05:00 02/27/18 06:00 Temperature Pulse Rate 92 H 91 H Respiratory Rate 18 16 Blood Pressure Pulse Oximetry 02/27/18 07:00 02/27/18 07:55 02/27/18 10:04 Temperature 36.6 C Pulse Rate 104 H Respiratory Rate 16 16 Blood Pressure 111/72 Pulse Oximetry 97 96 02/27/18 11:00 02/27/18 14:38 Temperature 36.8 C Pulse Rate 93 H 91 H Respiratory Rate 18 18 Blood Pressure 106/62 Pulse Oximetry 94 L 96 Intake & Output 02/26/18 02/27/18 02/27/18 18:59 06:59 18:59 Intake Total 4230 / 4230 250 / 250 780 / 780 Output Total 2410 / 2410 930 / 930 Balance 1820 / 1820 250 / 250 -150 / -150 Weight 77 kg Intake: IV 2700 / 2700 250 / 250 300 / 300 NovoLIN R (IV Infusion) 100 100 / 100 UNIT In NS Inj 99 ML @ 3 UNITS/ HR 3 mls/hr IV.CONT TITRATE PRN Rx#:[id number] Ofirmev Inj 1,000 mg In 100 ml 200 / 200 200 / 200 @ 400 mls/hr IV.SIG Q6H KAMRYN Rx# :[id number] Buminate 5% Inj 250 ML @ 250 250 / 250 250 / 250 mls/hr IV.SIG UNSCH PRN Rx#: [id number] LR 1000 mL Inj 500 ML @ 500 mls 2000 / 2000 /hr IV.SIG .Q1H PRN Rx#: [id number] Ancef 1 GM Premix Inj 1 gm In 150 / 150 50 / 50 50 / 50 50 ml @ 100 mls/hr IV.SIG Q8H KAMRYN Rx#:[id number] Oral 50 / 50 480 / 480 Anesthesia Amount 1000 / 1000 Cell Saver Amount 480 / 480 Output: Urine Amount (Catheter) 2109 800 / 800 Indwelling Temp Sensing 2109 800 / 800 Catheter Chest Tube Drainage 300 / 300 130 / 130 Pleural/Mediastinal 300 / 300 130 / 130 Other: Date of Last Bowel Movement 02/26/18 # Bowel Movements 0 Result Diagrams: 02/27/18 04:00 02/27/18 04:00 Objective Remarks: GENERAL: Middle-aged female, sitting in a chair, alert, oriented, nad. HEENT: Normocephalic. Atraumatic. Pupils equal, round, reactive, conjugate. Mucous membranes are moist NECK: Trachea is midline. There is no JVD. IJ introducer sheath in place, site clean dry and intact. CHEST: Equal chest rise. Midline median sternotomy wound VAC in place, slight is clean and dry. 2 chest tubes exit subxiphoid with minimal serosanguinous output. nc o2. CARDIOVASCULAR: Normal rate, regular rhythm. Sinus. ABDOMEN: Soft, nontender, nondistended. No guarding. MUSCULOSKELETAL: Pulses 2+. No peripheral edema. NEUROLOGICAL: RASS 0. awake, alert. follows commands. No focal deficits. Assessment and Plan - Assessment and Plan Plan: Assessment: 48-year-old female postop day 1 status post on pump CABG x3 (MELO--> LAD, SVG-->Diag2, SVG--> PLB of RCA). clinically stable. ready to transition out of ICU. status post on pump CABG x3 (MELO-->LAD, SVG-->Diag2, SVG--> PLB of RCA) 02/26 CAD - ASA - watch chest tube output - close uop monitoring - lactate cleared Diabetes - SSI HTN - start beta blockade thrombocytopenia - hematology has been following - does not meet transfusion triggers at this time - am cbc Anemia secondary to acute blood loss - does not meet transfusion triggers at this time - AM cbc Etoh Dependence - watch for withdraw symptoms - likely needs benzos to prevent further withdraws SCDs advance diet once extubated OOB with PT Critical care will sign off.
[2018-02-27] MEDS: Amitriptyline 10 MG Tablet PO SCH (21:05)
[2018-02-27] MEDS: Insulin Detemir Inj 1,000 UNIT/10 ML Vial SQ SCH (21:14)
[2018-02-28] MEDS: ceFAZolin 1 GM Premix Inj 1 GM/50 ML IV.SIG SCH (00:56)
[2018-02-28 04:30] LABS: Baso % (Auto) 0.5 % (0.0-2.0); Eos # (Auto) 0.1 th/mm3 (0.0-0.4); Eos % (Auto) 1.8 % (0.0-4.0); Hematocrit 31.4 % (35.0-46.0); Hemoglobin 10.7 gm/dL (11.6-15.3); Lymph # (Auto) 1.2 th/mm3 (1.0-4.8); Mean Corpuscular HGB Conc 34.1 % (32.0-36.0); Mean Corpuscular Hemoglobin 35.2 pg (27.0-34.0); Mean Platelet Volume 10.6 fL (7.0-11.0); Mono # (Auto) 1.2 th/mm3 (0.0-0.9); Mono % (Auto) 19.1 % (0.0-8.0); Neut # (Auto) 3.6 th/mm3 (1.8-7.7); Neut % (Auto) 59.6 % (16.0-70.0); Platelet Count 93 th/mm3 (150-450); Red Blood Count 3.05 mil/mm3 (4.00-5.30); Red Cell Distribution Width 14.2 % (11.6-17.2); White Blood Count 6.1 th/mm3 (4.0-11.0)
[2018-02-28 04:42] LABS: Anion Gap 6 meq/L (5-15); Blood Urea Nitrogen 13 mg/dL (7-18); Calcium 8.1 mg/dL (8.5-10.1); Carbon Dioxide 28.9 meq/L (21.0-32.0); Chloride 101 meq/L (98-107); Glomerular Filtration Rate Greater Than 89 mL/min (>89); Glucose,Random 171 mg/dL (74-106); Magnesium 1.8 mg/dL (1.5-2.5); Potassium 4.2 meq/L (3.5-5.1); Sodium 136 meq/L (136-145)
[2018-02-28] MEDS: Amiodarone 200 MG Tablet PO SCH ×3 (06:11→22:45)
[2018-02-28] MEDS: Insulin NovoLOG Aspart Correctional Sugar Inj SQ SCH ×4 (06:12→20:44)
[2018-02-28] MEDS: Polyethylene Glycol 3350 17 GM Packet PO SCH (08:50)
[2018-02-28] MEDS: Multivitamin/Minerals Therapeutic Tablet PO SCH (08:50)
[2018-02-28] MEDS: Docusate Sodium 100 MG Capsule PO SCH ×2 (08:51→20:38)
[2018-02-28] MEDS: Gabapentin 300 MG Capsule PO SCH ×3 (08:51→17:04)
[2018-02-28] MEDS: Insulin Detemir Inj 1,000 UNIT/10 ML Vial SQ SCH ×2 (08:55→20:39)
--- NOTE | 2018-02-28 09:39 | P.PNONC ---
Subjective Interval history: Patient sitting in recliner, she is lethargic. Answers questions. Continues to have pain at surgical site. Objective Vital Signs/Intake & Output: Vital Signs 02/27/18 10:04 02/27/18 11:00 02/27/18 14:38 Temperature 98.2 F Pulse Rate 93 H 91 H Respiratory Rate 18 18 Blood Pressure 106/62 Pulse Oximetry 96 94 L 96 02/27/18 15:00 02/27/18 19:00 02/27/18 20:00 Temperature 98.5 F 98.4 F Pulse Rate 92 H 94 H 87 Respiratory Rate 18 19 Blood Pressure 109/62 121/70 Pulse Oximetry 95 97 02/27/18 20:41 02/27/18 23:00 02/28/18 00:00 Temperature 98.7 F Pulse Rate 87 94 H 93 H Respiratory Rate 18 16 Blood Pressure 133/65 Pulse Oximetry 95 97 02/28/18 03:00 02/28/18 04:30 02/28/18 06:00 Temperature 98.4 F Pulse Rate 94 H 92 H 63 Respiratory Rate 18 Blood Pressure 124/58 L Pulse Oximetry 96 02/28/18 08:42 Temperature Pulse Rate Respiratory Rate Blood Pressure Pulse Oximetry 92 L Intake & Output 02/27/18 02/28/18 02/28/18 18:59 06:59 18:59 Intake Total 1310 / 1310 530 / 530 Output Total 1300 / 1300 300 / 300 Balance 230 / 230 Weight 77 kg Intake: IV 350 / 350 50 / 50 Buminate 5% Inj 250 ML @ 250 250 / 250 mls/hr IV.SIG UNSCH PRN Rx#: [id number] Ancef 1 GM Premix Inj 1 gm In 100 / 100 50 / 50 50 ml @ 100 mls/hr IV.SIG Q8H KAMRYN Rx#:[id number] Oral 960 / 960 480 / 480 Output: Urine 250 / 250 Urine Amount (Catheter) 800 / 800 Indwelling Temp Sensing 800 / 800 Catheter Chest Tube Drainage 250 / 250 300 / 300 Pleural/Mediastinal 250 / 250 300 / 300 Other: # Voids 1 Date of Last Bowel Movement 02/26/18 # Bowel Movements 0 Result Diagrams: 02/28/18 04:05 02/28/18 04:05 Laboratory Results: Laboratory Results - last 24 hr 02/25/18 02/27/18 02/27/18 04:55 09:43 14:45 WBC RBC Hgb Hct MCV MCH MCHC RDW Plt Count MPV Prelim Diff (Auto) Neut % (Auto) Lymph % (Auto) [place] % (Auto) Eos % (Auto) Baso % (Auto) Neut # (Auto) Lymph # (Auto) [place] # (Auto) Eos # (Auto) Baso # (Auto) WBC Differential Diff Scan Differential Comment Sodium Potassium Chloride Carbon Dioxide Anion Gap BUN Creatinine Estimated GFR POC Glucose 207 H 195 H Random Glucose Calcium Magnesium MTS Gel Crossmatch See Detail 02/27/18 02/27/18 02/28/18 17:31 22:52 04:05 WBC 6.1 RBC 3.05 L Hgb 10.7 L Hct 31.4 L MCV 103.0 H MCH 35.2 H MCHC 34.1 RDW 14.2 Plt Count 93 L MPV 10.6 Prelim Diff (Auto) Slide review pending Neut % (Auto) 59.6 Lymph % (Auto) 19.0 [place] % (Auto) 19.1 H Eos % (Auto) 1.8 Baso % (Auto) 0.5 Neut # (Auto) 3.6 Lymph # (Auto) 1.2 [place] # (Auto) 1.2 H Eos # (Auto) 0.1 Baso # (Auto) 0.0 WBC Differential . Diff Scan Auto diff confirmed Differential Comment . Sodium Potassium Chloride Carbon Dioxide Anion Gap BUN Creatinine Estimated GFR POC Glucose 208 H 190 H Random Glucose Calcium Magnesium MTS Gel Crossmatch 02/28/18 04:05 WBC RBC Hgb Hct MCV MCH MCHC RDW Plt Count MPV Prelim Diff (Auto) Neut % (Auto) Lymph % (Auto) [place] % (Auto) Eos % (Auto) Baso % (Auto) Neut # (Auto) Lymph # (Auto) [place] # (Auto) Eos # (Auto) Baso # (Auto) WBC Differential Diff Scan Differential Comment Sodium 136 Potassium 4.2 Chloride 101 Carbon Dioxide 28.9 Anion Gap 6 BUN 13 Creatinine 0.59 Estimated GFR Greater than 89 POC Glucose Random Glucose 171 H Calcium 8.1 L Magnesium 1.8 MTS Gel Crossmatch Medications: Active Medications Generic Name Dose Route Start Last Admin Trade Name Freq PRN Reason Stop Dose Admin Al Hydroxide/Mg Hydroxide 30 ml 02/27/18 09:00 12/05/18 08:51 Milk Of Magnesia Liq PO 30 ml DAILY KAMRYN Administration Albuterol 1 ampul 02/27/18 14:00 02/27/18 20:41 Duoneb Neb ([facility]) NEB 03/01/18 13:59 1 ampul Q6HR WHILE AWAKE NEB KAMRYN Administration Amiodarone HCl 400 mg 02/26/18 14:00 02/28/18 06:11 Cordarone PO 400 mg Q8HR KAMRYN Administration Amitriptyline HCl 10 mg 02/20/18 21:00 02/27/18 21:05 Elavil PO 10 mg HS KAMRYN Administration Aspirin 81 mg 02/21/18 10:54 02/28/18 08:51 Ecotrin PO 81 mg DAILY KAMRYN Administration Atorvastatin Calcium 20 mg 02/24/18 21:00 02/27/18 21:03 Lipitor PO 20 mg HS KAMRYN Administration Docusate Sodium 100 mg 02/23/18 10:30 02/28/18 08:51 Colace PO 100 mg BID KAMRYN Administration Duloxetine HCl 30 mg 02/21/18 09:00 02/28/18 08:51 Cymbalta PO 30 mg DAILY [facility] Administration Gabapentin 300 mg 02/23/18 13:00 02/28/18 08:51 Neurontin PO 300 mg TID [facility] Administration Glimepiride 4 mg 02/23/18 21:00 02/25/18 09:14 Amaryl PO 4 mg BID KAMRYN Administration Lactated Ringer's 500 mls @ 500 mls/hr 02/26/18 10:36 02/26/18 13:30 Lr 1000 Ml Inj IV.SIG Infused .Q1H PRN Infusion SEE LABEL COMMENTS Insulin Aspart 0 unit 02/27/18 10:00 02/28/18 06:12 Novolog Insulin Correctional Sugar Inj SQ 02/28/18 09:59 Not Given 02,06,10,14,18,22 [facility] Protocol Insulin Detemir 10 unit 02/22/18 21:00 02/28/18 08:55 Levemir Inj SQ 10 unit BID KAMRYN Administration Lorazepam 1 mg 02/20/18 21:11 02/27/18 02:54 Ativan PO 1 mg Q4H PRN Administration for CIWA 8-10 Multivitamins/Minerals 1 tab 02/27/18 09:00 02/28/18 08:50 Theragran-M PO 1 tab DAILY KAMRYN Administration Ondansetron HCl 4 mg 02/20/18 11:53 02/20/18 14:30 Zofran Inj IV.PUSH 4 mg Q6H PRN Administration NAUSEA Oxycodone/Acetaminophen 1 tab 02/27/18 11:00 02/28/18 08:51 Percocet 7.5/325 Mg PO 1 tab Q4H PRN Administration Acute Pain 1-5 Pantoprazole Sodium 40 mg 02/20/18 17:30 02/28/18 08:51 Protonix PO 40 mg DAILY KAMRYN Administration Polyethylene Glycol 17 gm 02/28/18 09:00 02/28/18 08:50 Miralax PO 17 gm DAILY KAMRYN Administration Sennosides 8.6 mg 02/27/18 21:00 02/27/18 21:03 Senokot PO 8.6 mg HS KAMRYN Administration Sodium Chloride 2 ml 02/26/18 21:00 02/28/18 08:50 Ns Flush IV.FLUSH 2 ml BID KAMRYN Administration Objective Remarks: GENERAL: Well-nourished, well-developed middle-aged female patient, in no acute distress. SKIN: Warm and dry. Surgical bandage to sternum. HEAD: Normocephalic. EYES: No scleral icterus. No injection or drainage. NECK: Supple, trachea midline. CARDIOVASCULAR: Regular rate and rhythm without murmurs. RESPIRATORY: Breath sounds equal bilaterally. No accessory muscle use. + Chest tube draining serosanguineous fluid. GASTROINTESTINAL: Abdomen large, soft, non-tender, nondistended. EXTREMITIES: No cyanosis, or edema. MUSCULOSKELETAL: Adequate muscle tone. NEUROLOGICAL: Awake, lethargic, and oriented x3. Assessment/Plan - Plan Ms. Leiva is a 48-year-old female patient with multiple medical problems including diabetes, hypertension, high cholesterol and fatty liver secondary to alcohol use. Recently presented to the hospital with chest pain and diagnosed with coronary artery disease requiring coronary artery bypass grafting. Hematology was consulted for thrombocytopenia. 1. Thrombocytopenia likely due to fatty liver, alcoholism and hypersplenism. Defer bone marrow biopsy evaluation for now. Lupus anticoagulant and antiphospholipid antibodies negative. Platelet count has decreased slightly to 93,000, status post CABG x3 on 02/26/2018. We will continue to monitor. 2. Hemoglobin has trended down to 10.7, no transfusion necessary today we will continue to monitor. 3. Repeat CBC in the a.m.
[2018-02-28] MEDS ORDERED: ALPRAZolam 0.25 MG Tablet PO PRN (11:04)
[2018-02-28] MEDS: Mag Sulf 1 gm/100 ml Premix 100 ML IV.SIG SCH ×4 (12:00→12:53)
--- NOTE | 2018-02-28 12:35 | P.PNIM ---
Subjective Interval history: Tolerating PO intake. Anxious for discharge. Physical Exam Vital signs: Last Vital Signs Temp 98.7 F 02/28/18 11:00 Pulse 101 H 02/28/18 12:16 Resp 15 02/28/18 12:16 BP 122/76 02/28/18 11:00 Pulse Ox 94 L 02/28/18 11:00 Narrative: General: NAD, AAOx3 Chest: CTA chest tube noted Cardiac: Regular Abd: +BS, soft ND/NT Ext: No edema Results Labs CBC & Chem 7: 02/28/18 04:05 02/28/18 04:05 Assessment and Plan Plan Chest pain Abnormal stress test - Pt is a 48 y/o female with hypertension, diabetes, and family history of heart disease that was admitted to the [facility] on 02/20/18 with complaints of chest discomfort. Patient states that she just has not been feeling well last approximately 3 weeks. States she has been vomiting quite often. Out of the 3 weeks she has probably had 9 or 10 days of vomiting multiple times each of those days. When this occurs she has a discomfort in the center/right side of her chest radiating to the neck. The discomfort is described as a burning, lasting about 30 minutes and will typically resolve on its own. At times she has become short of breath and diaphoretic. The night prior to admission she developed the same burning pain which lasted longer than it had previously. - In the [facility] she had three sets of CE which were negative - Nuclear stress test (02/20/18) - Moderate sized moderate severity reversible anterior wall and apical perfusion abnormality. - Cardiology was consulted and pt was transferred to the Hospitalist team - Pt underwent LHC (02/21/18) --> Ejection fraction of 70%, proximal LAD 20%, mid distal LAD 90%, the diagonal 95% and the RCA 80%. - Carotid Doppler Study (02/21/18) 1. Right Internal Carotid Artery: Mild plaquing with no evidence of stenosis. 2. Left Internal Carotid Artery: Mild plaquing with no evidence of stenosis. - Cont. ASA 325mg daily - Lisinopril 10mg, amiodarone - Case d/w [facility], Dr. Carolyn Velásquez (01/28). - CABG 02/26/[address] Velásquez. - Case d/w Amie SALGUEROP with Dr. Velásquez. Cannot remove chest today. Hopefully, will be able to remove Chest tube in 2-3 days. - continue physical therapy - DVT prophylaxis - supportive care - percocet prn. Defer pain mgmt to [facility] Diabetes mellitus, type 2 - At home pt is on Amaryl 4mg po BID and Metformin 500mg BID, which are recent increases in her doses - Her last Hgb A1C in August 2017 was 11.3% but has been as high as 13% in 2017. - HgA1C 10.1 (02/23/18) - She has been noncompliant with referrals to Endocrinology. - SSI - Levemir to 10 units BID - Amaryl 4mg BID - high dose SSi - metformin 500mg BID Peripheral neuropathy - She takes Gabapentin 600mg HS and Cymbalta 30mg daily for her neuropathy which she does not feel helps much. The source of her neuropathy is unclear. She is supposed to be having EMG studies done as an outpt which she missed her appt for that. Per Dr. French outpt notes pt will likely require doses of Gabapentin upwards of 1800mg to get effect. - suspect diabetic peripheral neuropathy. Pt has good pulses in her LEs - increase current neurontin dosing to 300mg TID - anticipate that symptoms will improve with improved glycemic control - percocet prn - laxatives prn - In review of outpt records she had been prescribed Lyrica 50mg TID in the past but she could not afford this. Alcohol abuse - [facility] protocol - Librium stopped due to sedation, pts last alcoholic beverage was on 02/18/18. - Monitor for DTs Thrombocytopenia Fatty liver likely secondary to alcohol use Splenomegaly - Gallbladder Ultrasound (02/20/18) --> Mild probable hepatic steatosis - Spleen Ultrasound (02/22/18) --> The examination demonstrates normal echotexture with the spleen length of 12.8 cm. This is at the upper limits of normal in size. - admission Platelet count of 95,000. - platelet 69 (02/21), 73 (02/22), 85 (02/23), 92 (02/24), 98 (02/25) - appreciate input from Hematology, Dr. Alva - HIT Abs negative - Lupus anticoagulant and anticardiolipin antibody panel are pending. - PT, PTT are prolonged which is suspected to be due to her liver disease. Coags improving Progress Note: Quality VTE Deep Vein Thrombosis/Pulmonary Embolism Present on Admission: No
--- NOTE | 2018-02-28 13:39 | P.PNCV ---
- Note Subjective/Hospital Course: A 48-year-old female, patient of Dr. Montez Piedra, patient of Dr. Bar, presented to the emergency room with chest pain. She apparently had not been feeling well for the last couple of weeks. She has had some nausea. On the evening that she presented, she woke up with some burning in her chest. It lasted a couple of hours. She underwent workup in the chest pain center. Troponins were negative; however, her nuclear stress test showed moderate-sized severe irreversible anterior wall apical perfusion abnormality. She underwent cardiac catheterization by Dr. Bar this morning, which showed an ejection fraction of 70%, proximal LAD 20%, mid distal LAD 90%, the diagonal 95% and the RCA 80%. We were consulted to evaluate for coronary artery bypass grafting. She was also found to have a diagnosis of thrombocytopenia, fatty liver secondary to alcohol use. Hematology has been consulted, recommendation to administer platelets as needed for platelet count less than 50,000 or acute bleeding. PMH: DM HTN 02/22 HIT panel and park neg PLT improved to 73 on scheduled Librium, no signs of withdrawal await results fo CT chest aorta , eval for left subclavian stenosis if stable , will eval for surgery monday or friday 02/23 surgery scheduled for Monday CTA: chest unremarkable. Specifically no evidence of subclavian stenosis as questioned. HGB a1c 10 will need a glucometer at discharge / consult early childhood educator aide PLT 85K 02/26 surgery Date of procedure: 02/26/18 Procedure: CABG x 3 MELO to LAD - good SVG to D2 - good SVG to PLB - good EVH extubated after surgery 2000cc crystalloid , 500cc cell saver some agitation last night / some confusion/ resolved 02/27 up in chair, on nasal cannula pain med increased pulm toileting , levemir to wean off insulin gtt await early childhood educator aide / she will need glucometer prior to dc no current signs of withdrawal transfer to stepdown 02/28 unable to dc chest tube today 300cc/ 12 hrs very argumentative and manipulative with staff/ discussed with Dr Jain and Dr Aragon decreased pain meds due to oversedation / pt will fall asleep while talking to her , but then wakes up demanding more pain meds I Objective: Vital Signs - 24 hr 02/27/18 14:38 02/27/18 15:00 02/27/18 19:00 Temperature 98.5 F Pulse Rate 91 H 92 H 94 H Respiratory Rate 18 18 Blood Pressure 109/62 Pulse Oximetry 96 95 02/27/18 20:00 02/27/18 20:41 02/27/18 23:00 Temperature 98.4 F Pulse Rate 87 87 94 H Respiratory Rate 19 18 Blood Pressure 121/70 Pulse Oximetry 97 95 02/28/18 00:00 02/28/18 03:00 02/28/18 04:30 Temperature 98.7 F 98.4 F Pulse Rate 93 H 94 H 92 H Respiratory Rate 16 18 Blood Pressure 133/65 124/58 L Pulse Oximetry 97 96 02/28/18 06:00 02/28/18 08:42 02/28/18 09:41 Temperature Pulse Rate 63 98 H Respiratory Rate Blood Pressure Pulse Oximetry 92 L 02/28/18 10:41 02/28/18 11:00 02/28/18 12:00 Temperature 98.7 F Pulse Rate 102 H 95 H 94 H Respiratory Rate 20 Blood Pressure 122/76 Pulse Oximetry 94 L 02/28/18 12:16 Temperature Pulse Rate 101 H Respiratory Rate 15 Blood Pressure Pulse Oximetry GENERAL: A&O SKIN: Warm and dry. prevena to chest , izabel wrap to left leg HEAD: Normocephalic. EYES: No scleral icterus. No injection or drainage. NECK: Supple, trachea midline. No JVD or lymphadenopathy. CARDIOVASCULAR: Regular rate and rhythm without murmurs, gallops, or rubs. RESPIRATORY: Breath sounds equal bilaterally. No accessory muscle use. diminsihed in bases, chest tube drained 300cc/ 12 hrs GASTROINTESTINAL: Abdomen soft, non-tender, nondistended. MUSCULOSKELETAL: No cyanosis, or edema. BACK: Nontender without obvious deformity. No CVA tenderness. Labs: Laboratory Results - last 12 hr 02/25/18 02/28/18 02/28/18 04:55 04:05 04:05 WBC 6.1 RBC 3.05 L Hgb 10.7 L Hct 31.4 L MCV 103.0 H MCH 35.2 H MCHC 34.1 RDW 14.2 Plt Count 93 L MPV 10.6 Prelim Diff (Auto) Slide review pending Neut % (Auto) 59.6 Lymph % (Auto) 19.0 [place] % (Auto) 19.1 H Eos % (Auto) 1.8 Baso % (Auto) 0.5 Neut # (Auto) 3.6 Lymph # (Auto) 1.2 [place] # (Auto) 1.2 H Eos # (Auto) 0.1 Baso # (Auto) 0.0 WBC Differential . Diff Scan Auto diff confirmed Differential Comment . Sodium 136 Potassium 4.2 Chloride 101 Carbon Dioxide 28.9 Anion Gap 6 BUN 13 Creatinine 0.59 Estimated GFR Greater than 89 POC Glucose Random Glucose 171 H Calcium 8.1 L Magnesium 1.8 MTS Gel Crossmatch See Detail 02/28/18 12:18 WBC RBC Hgb Hct MCV MCH MCHC RDW Plt Count MPV Prelim Diff (Auto) Neut % (Auto) Lymph % (Auto) [place] % (Auto) Eos % (Auto) Baso % (Auto) Neut # (Auto) Lymph # (Auto) [place] # (Auto) Eos # (Auto) Baso # (Auto) WBC Differential Diff Scan Differential Comment Sodium Potassium Chloride Carbon Dioxide Anion Gap BUN Creatinine Estimated GFR POC Glucose 205 H Random Glucose Calcium Magnesium MTS Gel Crossmatch Result Diagrams: 02/28/18 04:05 02/28/18 04:05 - Plan (1) S/P CABG (coronary artery bypass graft) Plan: ASA, statin , BB OOB, ambulate opulm toileting (4) Diabetes Plan: insulin sliding scale await early childhood educator aide on levemir / home meds (6) Thrombocytopenia Plan: PLT 93K Lupus anticoagulant and anticardiolipin antibody panel are pending. PT, PTT are prolonged which is suspected to be due to her liver disease. Coags improving hematology following (7) CAD (coronary artery disease), [place] coronary artery Plan: for surgery on Monday (9) Alcohol abuse Plan: on prn xanax, now on scheduled durgesic patch prn percocet for pain ? need for Psych consult pt very manipulative and argumentative to staff (4) Diabetes Qualifiers: Diabetes mellitus type: type 2
[2018-02-28] MEDS: Amitriptyline 10 MG Tablet PO SCH (20:38)
[2018-03-01] MEDS: Amiodarone 200 MG Tablet PO SCH ×3 (06:11→21:58)
[2018-03-01] MEDS ORDERED: Lisinopril 20 MG Tablet PO SCH (09:00)
[2018-03-01] MEDS ORDERED: Sod Phosphate/Sod Biphosphate (Adult) Enema 133 ML Bottle RECTAL PRN (09:00)
--- NOTE | 2018-03-01 09:53 | P.PNONC ---
Subjective Interval history: Afebrile. Patient sitting up in chair, eating breakfast. She is much more alert today. She is very talkative today. Objective Vital Signs/Intake & Output: Vital Signs 02/28/18 10:41 02/28/18 11:00 02/28/18 12:00 Temperature 98.7 F Pulse Rate 102 H 95 H 94 H Respiratory Rate 20 Blood Pressure 122/76 Pulse Oximetry 94 L 02/28/18 12:16 02/28/18 13:00 02/28/18 14:00 Temperature Pulse Rate 101 H 94 H 94 H Respiratory Rate 15 Blood Pressure Pulse Oximetry 02/28/18 14:32 02/28/18 15:00 02/28/18 15:19 Temperature 97.9 F Pulse Rate 90 95 H 94 H Respiratory Rate 20 Blood Pressure 110/63 Pulse Oximetry 96 02/28/18 17:00 02/28/18 18:00 02/28/18 19:00 Temperature 98.5 F Pulse Rate 76 95 H 95 H Respiratory Rate 18 Blood Pressure 108/71 Pulse Oximetry 96 02/28/18 20:00 02/28/18 20:45 02/28/18 21:00 Temperature Pulse Rate 95 H 96 H 97 H Respiratory Rate 14 Blood Pressure Pulse Oximetry 96 02/28/18 22:00 02/28/18 22:01 02/28/18 23:00 Temperature 98.7 F Pulse Rate 98 H 95 H Respiratory Rate 17 17 Blood Pressure 110/68 Pulse Oximetry 96 03/01/18 00:00 03/01/18 01:00 03/01/18 02:00 Temperature Pulse Rate 93 H 95 H 95 H Respiratory Rate Blood Pressure Pulse Oximetry 03/01/18 03:00 03/01/18 03:57 03/01/18 05:00 Temperature 98.6 F Pulse Rate 96 H 97 H 96 H Respiratory Rate 17 Blood Pressure 108/70 Pulse Oximetry 95 03/01/18 07:30 03/01/18 07:36 03/01/18 08:23 Temperature 98.0 F Pulse Rate 89 90 96 H Respiratory Rate 16 18 Blood Pressure 108/67 Pulse Oximetry 95 98 03/01/18 08:29 Temperature Pulse Rate 98 H Respiratory Rate Blood Pressure Pulse Oximetry Intake & Output 02/28/18 03/01/18 03/01/18 18:59 06:59 18:59 Intake Total 1500 / 1500 200 / 200 Output Total 660 / 660 350 / 350 Balance 840 / 840 -150 / -150 Intake: IV 300 / 300 Magnesium Sulfate 1 gm/D5W 100 300 / 300 ml Premix 100 ML @ 100 mls/hr IV.SIG Q1H SHRUTHI Rx#:[id number] Oral 1200 / 1200 200 / 200 Output: Urine 500 / 500 350 / 350 Chest Tube Drainage 160 / 160 Pleural/Mediastinal 160 / 160 Other: # Voids 1 Result Diagrams: 03/01/18 10:05 02/28/18 04:05 Laboratory Results: Laboratory Results - last 24 hr 02/28/18 02/28/18 02/28/18 12:18 16:31 19:48 POC Glucose 205 H 194 H 202 H 03/01/18 08:13 POC Glucose 123 H Medications: Active Medications Generic Name Dose Route Start Last Admin Trade Name Freq PRN Reason Stop Dose Admin Al Hydroxide/Mg Hydroxide 30 ml 02/27/18 09:00 02/28/18 08:51 Milk Of Magnesia Liq PO 30 ml DAILY SHRUTHI Administration Albuterol 1 ampul 02/27/18 14:00 03/01/18 07:34 Duoneb Neb (Shruthi) NEB 03/01/18 13:59 1 ampul Q6HR WHILE AWAKE NEB SHRUTHI Administration Alprazolam 0.25 mg 02/28/18 11:04 02/28/18 12:00 Xanax PO 0.25 mg Q8H PRN Administration ANXIETY Amiodarone HCl 400 mg 02/26/18 14:00 03/01/18 06:11 Cordarone PO 400 mg Q8HR SHRUTHI Administration Amitriptyline HCl 10 mg 02/20/18 21:00 02/28/18 20:38 Elavil PO 10 mg HS SHRUTHI Administration Aspirin 81 mg 02/21/18 10:54 02/28/18 08:51 Ecotrin PO 81 mg DAILY SHRUTHI Administration Atorvastatin Calcium 20 mg 02/24/18 21:00 02/28/18 20:38 Lipitor PO 20 mg HS SHRUTHI Administration Docusate Sodium 100 mg 02/23/18 10:30 02/28/18 20:38 Colace PO 100 mg BID SHRUTHI Administration Duloxetine HCl 30 mg 02/21/18 09:00 02/28/18 08:51 Cymbalta PO 30 mg DAILY SHRUTHI Administration Fentanyl 1 patch 02/28/18 13:30 02/28/18 14:44 Duragesic 25 Mcg Patch.72hr T-DERMAL 1 patch Q3D SHRUTHI Administration Gabapentin 300 mg 02/23/18 13:00 02/28/18 17:04 Neurontin PO 300 mg TID SHRUTHI Administration Glimepiride 4 mg 02/23/18 21:00 02/25/18 09:14 Amaryl PO 4 mg BID SHRUTHI Administration Lactated Ringer's 500 mls @ 500 mls/hr 02/26/18 10:36 02/26/18 13:30 Lr 1000 Ml Inj IV.SIG Infused .Q1H PRN Infusion SEE LABEL COMMENTS Insulin Aspart 0 unit 02/28/18 12:00 02/28/18 20:44 Novolog Insulin Correctional Sugar Inj SQ 14 unit ACHS SHRUTHI Administration Protocol Insulin Detemir 10 unit 02/22/18 21:00 02/28/18 20:39 Levemir Inj SQ 10 unit BID SHRUTHI Administration Metformin HCl 500 mg 02/28/18 21:00 02/28/18 20:38 Glucophage PO 500 mg BID SHRUTHI Administration Multivitamins/Minerals 1 tab 02/27/18 09:00 02/28/18 08:50 Theragran-M PO 1 tab DAILY SHRUTHI Administration Ondansetron HCl 4 mg 02/20/18 11:53 02/20/18 14:30 Zofran Inj IV.PUSH 4 mg Q6H PRN Administration NAUSEA Oxycodone/Acetaminophen 1 tab 02/28/18 12:08 03/01/18 06:15 Percocet 5/325 Mg PO 1 tab Q4H PRN Administration PAIN SCALE 1-10 Pantoprazole Sodium 40 mg 02/20/18 17:30 02/28/18 08:51 Protonix PO 40 mg DAILY SHRUTHI Administration Polyethylene Glycol 17 gm 02/28/18 09:00 02/28/18 08:50 Miralax PO 17 gm DAILY SHRUTHI Administration Sennosides 8.6 mg 02/27/18 21:00 02/28/18 20:39 Senokot PO 8.6 mg HS SHRUTHI Administration Sodium Chloride 2 ml 02/26/18 21:00 02/28/18 20:39 Ns Flush IV.FLUSH 2 ml BID SHRUTHI Administration Objective Remarks: GENERAL: Well-nourished, well-developed middle-aged female patient, in no acute distress. SKIN: Warm and dry. Surgical bandage to sternum. HEAD: Normocephalic. EYES: No scleral icterus. No injection or drainage. NECK: Supple, trachea midline. CARDIOVASCULAR: Regular rate and rhythm without murmurs. RESPIRATORY: Breath sounds equal bilaterally. No accessory muscle use. + Chest tube draining serosanguineous fluid. GASTROINTESTINAL: Abdomen large, soft, non-tender, nondistended. EXTREMITIES: No cyanosis, or edema. MUSCULOSKELETAL: Adequate muscle tone. NEUROLOGICAL: Awake, alert and oriented x3. Assessment/Plan - Plan Ms. Leiva is a 48-year-old female patient with multiple medical problems including diabetes, hypertension, high cholesterol and fatty liver secondary to alcohol use. Recently presented to the hospital with chest pain and diagnosed with coronary artery disease requiring coronary artery bypass grafting. Hematology was consulted for thrombocytopenia. 1. Thrombocytopenia likely due to fatty liver, alcoholism and hypersplenism. Defer bone marrow biopsy evaluation for now. Lupus anticoagulant and antiphospholipid antibodies negative. Status post CABG x3 on 02/26/2018. CBC is pending today. 2. Await CBC results today. 3. Continue supportive care. - Attending Statement The exam, history, and the medical decision-making described in the above note were completed with the assistance of the mid-level provider. I reviewed and agree with the findings presented. I attest that I had a [id number] encounter with the patient on the same day, and personally performed and documented my assessment and findings in the medical record. Patient seen and examined in the afternoon. Sleepy but arousable, she denies any chest pain or shortness of breath. Chest tube has been removed. No petechia noted. She has a very good relationship with Dr. Thibodeauxhringer her primary physician. We discussed the need for her to follow-up with her primary regarding check of her platelet count and follow-up with gastroenterology for her fatty liver. Her platelet recovery continues the further she is away from her last dose of alcohol. Her platelet count is 145,000 today which is increased from yesterday. No specific therapy is required from oncology standpoint. We will sign off. Reconsult as needed.
[2018-03-01] MEDS ORDERED: Metoprolol Tartrate 25 MG Tablet PO SCH (10:00)
[2018-03-01] MEDS: Docusate Sodium 100 MG Capsule PO SCH ×2 (10:07→21:19)
[2018-03-01] MEDS: Gabapentin 300 MG Capsule PO SCH ×3 (10:07→17:37)
[2018-03-01] MEDS: Multivitamin/Minerals Therapeutic Tablet PO SCH (10:08)
[2018-03-01] MEDS: Polyethylene Glycol 3350 17 GM Packet PO SCH (10:08)
[2018-03-01] MEDS: Insulin Detemir Inj 1,000 UNIT/10 ML Vial SQ SCH (10:09)
[2018-03-01] MEDS: Insulin NovoLOG Aspart Correctional Sugar Inj SQ SCH ×4 (10:09→21:59)
[2018-03-01 11:07] LABS: Baso # (Auto) 0.1 th/mm3 (0.0-0.2); Baso % (Auto) 0.8 % (0.0-2.0); Eos # (Auto) 0.3 th/mm3 (0.0-0.4); Eos % (Auto) 4.3 % (0.0-4.0); Hematocrit 35.4 % (35.0-46.0); Lymph # (Auto) 1.4 th/mm3 (1.0-4.8); Lymph % (Auto) 18.8 % (9.0-44.0); Mean Corpuscular HGB Conc 33.9 % (32.0-36.0); Mean Corpuscular Hemoglobin 35.5 pg (27.0-34.0); Mean Corpuscular Volume 104.8 fL (80.0-100.0); Mean Platelet Volume 10.4 fL (7.0-11.0); Mono % (Auto) 13.3 % (0.0-8.0); Neut # (Auto) 4.8 th/mm3 (1.8-7.7); Neut % (Auto) 62.8 % (16.0-70.0); Platelet Count 145 th/mm3 (150-450); Red Blood Count 3.38 mil/mm3 (4.00-5.30); Red Cell Distribution Width 14.3 % (11.6-17.2); White Blood Count 7.6 th/mm3 (4.0-11.0)
--- NOTE | 2018-03-01 12:54 | P.PNCV ---
- Note Subjective/Hospital Course: A 48-year-old female, patient of Dr. Montez Piedra, patient of Dr. Bar, presented to the emergency room with chest pain. She apparently had not been feeling well for the last couple of weeks. She has had some nausea. On the evening that she presented, she woke up with some burning in her chest. It lasted a couple of hours. She underwent workup in the chest pain center. Troponins were negative; however, her nuclear stress test showed moderate-sized severe irreversible anterior wall apical perfusion abnormality. She underwent cardiac catheterization by Dr. Bar this morning, which showed an ejection fraction of 70%, proximal LAD 20%, mid distal LAD 90%, the diagonal 95% and the RCA 80%. We were consulted to evaluate for coronary artery bypass grafting. She was also found to have a diagnosis of thrombocytopenia, fatty liver secondary to alcohol use. Hematology has been consulted, recommendation to administer platelets as needed for platelet count less than 50,000 or acute bleeding. PMH: DM HTN 02/22 HIT panel and park neg PLT improved to 73 on scheduled Librium, no signs of withdrawal await results fo CT chest aorta , eval for left subclavian stenosis if stable , will eval for surgery monday or friday 02/23 surgery scheduled for Monday CTA: chest unremarkable. Specifically no evidence of subclavian stenosis as questioned. HGB a1c 10 will need a glucometer at discharge / consult information strategist PLT 85K 02/26 surgery Date of procedure: 02/26/18 Procedure: CABG x 3 MELO to LAD - good SVG to D2 - good SVG to PLB - good EVH extubated after surgery 2000cc crystalloid , 500cc cell saver some agitation last night / some confusion/ resolved 02/27 up in chair, on nasal cannula pain med increased pulm toileting , levemir to wean off insulin gtt await information strategist / she will need glucometer prior to dc no current signs of withdrawal transfer to stepdown 02/28 unable to dc chest tube today 300cc/ 12 hrs very argumentative and manipulative with staff/ discussed with Dr Jain and Dr Aragon decreased pain meds due to oversedation / pt will fall asleep while talking to her , but then wakes up demanding more pain meds 03/01 less agitated today, more cooperative, but needs aggressive pulm toileting gentle diuresis, increase BB chest tubes removed without difficulty wean 02 as tolerated I Objective: Vital Signs - 24 hr 02/28/18 13:00 02/28/18 14:00 02/28/18 14:32 Temperature 97.9 F Pulse Rate 94 H 94 H 90 Respiratory Rate 20 Blood Pressure 110/63 Pulse Oximetry 96 02/28/18 15:00 02/28/18 15:19 02/28/18 17:00 Temperature Pulse Rate 95 H 94 H 76 Respiratory Rate Blood Pressure Pulse Oximetry 02/28/18 18:00 02/28/18 19:00 02/28/18 20:00 Temperature 98.5 F Pulse Rate 95 H 95 H 95 H Respiratory Rate 18 Blood Pressure 108/71 Pulse Oximetry 96 02/28/18 20:45 02/28/18 21:00 02/28/18 22:00 Temperature Pulse Rate 96 H 97 H 98 H Respiratory Rate 14 Blood Pressure Pulse Oximetry 96 02/28/18 22:01 02/28/18 23:00 03/01/18 00:00 Temperature 98.7 F Pulse Rate 95 H 93 H Respiratory Rate 17 17 Blood Pressure 110/68 Pulse Oximetry 96 03/01/18 01:00 03/01/18 02:00 03/01/18 03:00 Temperature 98.6 F Pulse Rate 95 H 95 H 96 H Respiratory Rate 17 Blood Pressure 108/70 Pulse Oximetry 95 03/01/18 03:57 03/01/18 05:00 03/01/18 07:00 Temperature Pulse Rate 97 H 96 H Respiratory Rate 16 Blood Pressure Pulse Oximetry 03/01/18 07:30 03/01/18 07:36 03/01/18 08:23 Temperature 98.0 F Pulse Rate 89 90 96 H Respiratory Rate 16 18 Blood Pressure 108/67 Pulse Oximetry 95 98 03/01/18 08:29 03/01/18 09:00 03/01/18 10:00 Temperature Pulse Rate 98 H 102 H 94 H Respiratory Rate Blood Pressure Pulse Oximetry 03/01/18 11:22 03/01/18 12:20 03/01/18 12:31 Temperature 98.0 F Pulse Rate 93 H 99 H 100 H Respiratory Rate 18 Blood Pressure 112/68 Pulse Oximetry GENERAL: A&O x 3 SKIN: Warm and dry. prevena dressing in place to chest, incision intact to left leg HEAD: Normocephalic. EYES: No scleral icterus. No injection or drainage. NECK: Supple, trachea midline. No JVD or lymphadenopathy. CARDIOVASCULAR: Regular rate and rhythm without murmurs, gallops, or rubs. RESPIRATORY: Breath sounds equal bilaterally. No accessory muscle use. diminished in bases, faint crackles , chest tube removed GASTROINTESTINAL: Abdomen soft, non-tender, nondistended. MUSCULOSKELETAL: No cyanosis, or edema. BACK: Nontender without obvious deformity. No CVA tenderness. Labs: Laboratory Results - last 12 hr 03/01/18 03/01/18 03/01/18 08:13 10:05 12:07 WBC 7.6 RBC 3.38 L Hgb 12.0 Hct 35.4 MCV 104.8 H MCH 35.5 H MCHC 33.9 RDW 14.3 Plt Count 145 L D MPV 10.4 Neut % (Auto) 62.8 Lymph % (Auto) 18.8 [place] % (Auto) 13.3 H Eos % (Auto) 4.3 H Baso % (Auto) 0.8 Neut # (Auto) 4.8 Lymph # (Auto) 1.4 [place] # (Auto) 1.0 H Eos # (Auto) 0.3 Baso # (Auto) 0.1 WBC Differential . Differential Comment Auto diff final POC Glucose 123 H 178 H Result Diagrams: 03/01/18 10:05 02/28/18 04:05 - Plan (1) S/P CABG (coronary artery bypass graft) Plan: ASA, statin , increase BB OOB, ambulate pulm toileting gentle diuresis (4) Diabetes Plan: insulin sliding scale await information strategist on levemir / home meds increase metformin (6) Thrombocytopenia Plan: PLT 93K> 145 per Heme Thrombocytopenia likely due to fatty liver, alcoholism and hypersplenism. Defer bone marrow biopsy evaluation for now. Lupus anticoagulant and antiphospholipid antibodies negative. (9) Alcohol abuse Plan: on prn xanax, now on scheduled durgesic patch prn percocet for pain demeanor somewhat improved today still somewhat sleepy (4) Diabetes Qualifiers: Diabetes mellitus type: type 2
--- NOTE | 2018-03-01 16:38 | P.DIET ---
Nutritional Evaluation Type of nutrition evaluation: initial Nutrition screening: MDC (diet education) Assessment Assessment: MDC for diet education received on 02/27. Pt recently s/p CABG x3 and ext on , was awake today. Pts spouse present during RD visit and listened to education w/ pt. Pts spouse mentioned he would research about the consistent carb diet further, will purchase a scale for weighing food, and read food labels of food products. Pt gave brief diet history, RD mentioned several diet changes. Consult RD if any questions arise. Recommendations: Consult RD if any questions arise
--- NOTE | 2018-03-01 19:39 | P.PNIM ---
Subjective Interval history: Pt has NO new clinical complaints. Pain is adequately controlled. Pt tolerating PO intake without n/v/d. Physical Exam Vital signs: Last Vital Signs Temp 98.2 F 03/01/18 16:02 Pulse 85 03/01/18 18:11 Resp 16 03/01/18 16:02 BP 126/71 03/01/18 16:02 Pulse Ox 97 03/01/18 16:02 Narrative: General: NAD, AAOx3 Chest: CTA x b/l chest tube removed Cardiac: Regular Abd: +BS, soft ND/NT Ext: No edema Results Labs CBC & Chem 7: 03/01/18 10:05 02/28/18 04:05 Assessment and Plan Plan Chest pain Abnormal stress test - Pt is a 48 y/o female with hypertension, diabetes, and family history of heart disease that was admitted to the [facility] on 02/20/18 with complaints of chest discomfort. Patient states that she just has not been feeling well last approximately 3 weeks. States she has been vomiting quite often. Out of the 3 weeks she has probably had 9 or 10 days of vomiting multiple times each of those days. When this occurs she has a discomfort in the center/right side of her chest radiating to the neck. The discomfort is described as a burning, lasting about 30 minutes and will typically resolve on its own. At times she has become short of breath and diaphoretic. The night prior to admission she developed the same burning pain which lasted longer than it had previously. - In the [facility] she had three sets of CE which were negative - Nuclear stress test (02/20/18) - Moderate sized moderate severity reversible anterior wall and apical perfusion abnormality. - Cardiology was consulted and pt was transferred to the Hospitalist team - Pt underwent LHC (02/21/18) --> Ejection fraction of 70%, proximal LAD 20%, mid distal LAD 90%, the diagonal 95% and the RCA 80%. - Carotid Doppler Study (02/21/18) 1. Right Internal Carotid Artery: Mild plaquing with no evidence of stenosis. 2. Left Internal Carotid Artery: Mild plaquing with no evidence of stenosis. - Cont. ASA 325mg daily - Lisinopril 10mg, amiodarone - Case d/w [facility], Dr. Carolyn Velásquez (01/28). - CABG 02/26/[address] Velásquez. - chest tube removed - continue physical therapy - DVT prophylaxis - supportive care - percocet prn. - anticipate d/c to home 03/02/18 Diabetes mellitus, type 2 - At home pt is on Amaryl 4mg po BID and Metformin 500mg BID, which are recent increases in her doses - Her last Hgb A1C in August 2017 was 11.3% but has been as high as 13% in 2017. - HgA1C 10.1 (02/23/18) - She has been noncompliant with referrals to Endocrinology. - SSI - Levemir to 10 units BID - Amaryl 4mg BID - high dose SSi - metformin 500mg BID Peripheral neuropathy - She takes Gabapentin 600mg HS and Cymbalta 30mg daily for her neuropathy which she does not feel helps much. The source of her neuropathy is unclear. She is supposed to be having EMG studies done as an outpt which she missed her appt for that. Per Dr. French outpt notes pt will likely require doses of Gabapentin upwards of 1800mg to get effect. - suspect diabetic peripheral neuropathy. Pt has good pulses in her LEs - increase current neurontin dosing to 300mg TID - anticipate that symptoms will improve with improved glycemic control - percocet prn - laxatives prn - In review of outpt records she had been prescribed Lyrica 50mg TID in the past but she could not afford this. Alcohol abuse - [facility] protocol - Librium stopped due to sedation, pts last alcoholic beverage was on 02/18/18. - Monitor for DTs Thrombocytopenia Fatty liver likely secondary to alcohol use Splenomegaly - Gallbladder Ultrasound (02/20/18) --> Mild probable hepatic steatosis - Spleen Ultrasound (02/22/18) --> The examination demonstrates normal echotexture with the spleen length of 12.8 cm. This is at the upper limits of normal in size. - admission Platelet count of 95,000. - platelet 69 (02/21), 73 (02/22), 85 (02/23), 92 (02/24), 98 (02/25) - appreciate input from Hematology, Dr. Alva - HIT Abs negative - Lupus anticoagulant and anticardiolipin antibody panel are pending. - PT, PTT are prolonged which is suspected to be due to her liver disease. Coags improving Progress Note: Quality VTE Deep Vein Thrombosis/Pulmonary Embolism Present on Admission: No
[2018-03-01] MEDS: Amitriptyline 10 MG Tablet PO SCH (21:19)
[2018-03-01] MEDS: Metoprolol Tartrate 25 MG Tablet PO SCH (21:19)
--- NOTE | 2018-03-02 05:55 | XR ---
EXAM DATE: 03/02/2018 5:49 AM EST AGE/SEX: 48 years / Female INDICATIONS: Chest tube removal. Rule out PTX. CLINICAL DATA: This is the patient's subsequent encounter. Patient reports that signs and symptoms h ave been present for 4 - 6 days and indicates a pain score of Nonresponsive. MEDICAL/SURGICAL HISTORY: Diabetes. Hypercholesterolemia. Hypertension. CABG. Cardiac cath. COMPARISON: [facility] – [place], CHEST 1V SINGLE AP, 02/27/2018. . FINDINGS: There is consolidation with air bronchogram formation in the left lower lobe. Sternotomy wires are id entified. Cardiomegaly is present. I do not see a pneumothorax. Mediastinal tube and left-sided chest tube has been removed. Left subclavian line has been removed. CONCLUSION: Left basilar airspace disease. Electronically signed by: Navid Hurley MD 03/02/2018 5:54 AM EST
[2018-03-02] MEDS: Amiodarone 200 MG Tablet PO SCH (06:12)
[2018-03-02] MEDS: Polyethylene Glycol 3350 17 GM Packet PO SCH (08:28)
[2018-03-02] MEDS: Gabapentin 300 MG Capsule PO SCH ×2 (08:29→12:37)
[2018-03-02] MEDS: Multivitamin/Minerals Therapeutic Tablet PO SCH (08:30)
[2018-03-02] MEDS: Metoprolol Tartrate 25 MG Tablet PO SCH (08:30)
[2018-03-02] MEDS: Docusate Sodium 100 MG Capsule PO SCH (08:31)
[2018-03-02] MEDS: Insulin NovoLOG Aspart Correctional Sugar Inj SQ SCH ×2 (09:05→12:14)
[2018-03-02 11:04] VITALS: BP 107/67; TEMP 97.8
--- NOTE | 2018-03-02 12:45 | P.DS ---
Date of admission: 02/21/18 16:51 Primary care physician: UNKNOWN Attending physician on discharge: Ashlie Velásquez Anticipated date of discharge: 03/02/18 Brief History from admission: This is a 48-year-old female with history of hypertension, diabetes, and family history of heart disease that presents to ED via private vehicle with complaint of chest discomfort. Patient states that she just has not been feeling well last approximately 3 weeks. States she has been vomiting quite often. States that it has been nonbloody and nonbilious. Out of the 3 weeks she has probably had 9 or 10 days of vomiting multiple times each of those days. When this occurs she may get but is not guaranteed to get a discomfort in the center/ right side of her chest radiating to the neck. The discomfort is described as a burning. She has not had the discomfort without episodes of emesis. Usually discomfort will last about 30 minutes. Resolves on its own. She at times becomes short of breath and diaphoretic. She has not taken any medication to help with it. Last night around 2 in the morning she was working with the same burning lasted about 2 hours which is longer than it has been lasting previously. She has found nothing in particular to bring on the emesis. She has had no diarrhea constipation. Denies blood in stools or black or tarry stools. Cannot recall prior cardiac workup. There is family history of heart disease. She states that her brother had stents at age 55. Both parents had MIs at age 52. Patient is diabetic and admits to not having her diabetes under the best control. Her primary care physician is Dr. Piedra. History of hypertension and diabetes. Denies known CAD. Denies hyperlipidemia. Was explained to her that she should be on statin therapy with her history of diabetes unless there is contraindication which she may need to discuss with her physician as she does have elevated LFTs. She also describes history of alcohol abuse. States she is drinking on average 4 triple margaritas per night 5-7 nights a week. Patient is a non-smoker. She drinks on average 4 triple margaritas on evenings 5-7 evenings a week. Denies illicit drug use. She is with a child. She is a schoolteacher. Family history include beginning: Her brother had stents at age 55. Both parents had MIs at age 52. A 48-year-old female, patient of Dr. Montez Piedra, patient of Dr. Bar, presented to the emergency room with chest pain. She apparently had not been feeling well for the last couple of weeks. She has had some nausea. On the evening that she presented, she woke up with some burning in her chest. It lasted a couple of hours. She underwent workup in the chest pain center. Troponins were negative; however, her nuclear stress test showed moderate-sized severe irreversible anterior wall apical perfusion abnormality. She underwent cardiac catheterization by Dr. Bar this morning, which showed an ejection fraction of 70%, proximal LAD 20%, mid distal LAD 90%, the diagonal 95% and the RCA 80%. We were consulted to evaluate for coronary artery bypass grafting. She was also found to have a diagnosis of thrombocytopenia, fatty liver secondary to alcohol use. Hematology has been consulted, recommendation to administer platelets as needed for platelet count less than 50,000 or acute bleeding. PMH: DM HTN Patient update on day of discharge: pt on room air needs to continue to use IS Blood sugars have stabilized, she will need to follow her blood sugars at home has been given glucose monitor and supplies no evidence of withdrawal pain controlled , will dc home today DS: Diagnosis - Discharge Diagnosis (1) S/P CABG (coronary artery bypass graft) Status: Acute (2) Chest pain, rule out acute myocardial infarction Status: Acute (3) Hypertension Status: Chronic (4) Diabetes Status: Chronic (5) Elevated LFTs Status: Acute (6) Thrombocytopenia Status: Acute (7) CAD (coronary artery disease), [place] coronary artery Status: Acute (8) Chest pain Status: Acute (9) Alcohol abuse Status: Chronic DS: Medications - Discharge Medications Prescriptions: blood-glucose meter #1 each DS: Summary Hospital Course: 02/22 HIT panel and park neg PLT improved to 73 on scheduled Librium, no signs of withdrawal await results fo CT chest aorta , eval for left subclavian stenosis if stable , will eval for surgery monday or friday 02/23 surgery scheduled for Monday CTA: chest unremarkable. Specifically no evidence of subclavian stenosis as questioned. HGB a1c 10 will need a glucometer at discharge / consult informatics educator PLT 85K 02/26 surgery Date of procedure: 02/26/18 Procedure: CABG x 3 MELO to LAD - good SVG to D2 - good SVG to PLB - good EVH extubated after surgery 2000cc crystalloid , 500cc cell saver some agitation last night / some confusion/ resolved 02/27 up in chair, on nasal cannula pain med increased pulm toileting , levemir to wean off insulin gtt await informatics educator / she will need glucometer prior to dc no current signs of withdrawal transfer to stepdown 02/28 unable to dc chest tube today 300cc/ 12 hrs very argumentative and manipulative with staff/ discussed with Dr Jain and Dr Aragon decreased pain meds due to oversedation / pt will fall asleep while talking to her , but then wakes up demanding more pain meds 03/01 less agitated today, more cooperative, but needs aggressive pulm toileting gentle diuresis, increase BB chest tubes removed without difficulty wean 02 as tolerated Diabetes mellitus, type 2 - At home pt is on Amaryl 4mg po BID and Metformin 500mg BID, which are recent increases in her doses - Her last Hgb A1C in August 2017 was 11.3% but has been as high as 13% in 2017. - HgA1C 10.1 (02/23/18) - She has been noncompliant with referrals to Endocrinology. - SSI - Levemir to 10 units BID - Amaryl 4mg BID - high dose SSi - metformin 500mg BID Peripheral neuropathy - She takes Gabapentin 600mg HS and Cymbalta 30mg daily for her neuropathy which she does not feel helps much. The source of her neuropathy is unclear. She is supposed to be having EMG studies done as an outpt which she missed her appt for that. Per Dr. French outpt notes pt will likely require doses of Gabapentin upwards of 1800mg to get effect. - suspect diabetic peripheral neuropathy. Pt has good pulses in her LEs - increase current neurontin dosing to 300mg TID - anticipate that symptoms will improve with improved glycemic control - percocet prn - laxatives prn - In review of outpt records she had been prescribed Lyrica 50mg TID in the past but she could not afford this. Alcohol abuse - [facility] protocol - Librium stopped due to sedation, pts last alcoholic beverage was on 02/18/18. - Monitor for DTs Thrombocytopenia Fatty liver likely secondary to alcohol use Splenomegaly - Gallbladder Ultrasound (02/20/18) --> Mild probable hepatic steatosis - Spleen Ultrasound (02/22/18) --> The examination demonstrates normal echotexture with the spleen length of 12.8 cm. This is at the upper limits of normal in size. - admission Platelet count of 95,000. - platelet 69 (02/21), 73 (02/22), 85 (02/23), 92 (02/24), 98 (02/25) - appreciate input from Hematology, Dr. Alva - HIT Abs negative - Lupus anticoagulant and anticardiolipin antibody panel are pending. - PT, PTT are prolonged which is suspected to be due to her liver disease. Coags improving - Time Spent with Patient Total time spent providing and/or coordinating discharge services: Greater than 30 minutes - Quality: VTE Deep Vein Thrombosis/Pulmonary Embolism Present on Admission: No Exam Vital signs: Vital Signs 03/01/18 13:10 03/01/18 14:00 03/01/18 15:07 Temperature Pulse Rate 95 H 90 87 Respiratory Rate Blood Pressure Pulse Oximetry 03/01/18 16:02 03/01/18 16:03 03/01/18 17:44 Temperature 98.2 F Pulse Rate 84 87 86 Respiratory Rate 16 Blood Pressure 126/71 Pulse Oximetry 97 03/01/18 18:11 03/01/18 19:00 03/01/18 19:53 Temperature 97.3 F L Pulse Rate 85 82 88 Respiratory Rate 20 18 Blood Pressure 104/62 Pulse Oximetry 92 L 95 03/01/18 20:00 03/01/18 21:00 03/01/18 21:21 Temperature Pulse Rate 82 82 Respiratory Rate 20 Blood Pressure Pulse Oximetry 95 03/01/18 22:00 03/01/18 23:00 03/02/18 00:00 Temperature 99 F Pulse Rate 81 82 83 Respiratory Rate 20 Blood Pressure 102/57 L Pulse Oximetry 91 L 03/02/18 01:00 03/02/18 02:00 03/02/18 03:00 Temperature 98.5 F Pulse Rate 81 82 81 Respiratory Rate 18 20 Blood Pressure 95/59 L Pulse Oximetry 90 L 03/02/18 04:00 03/02/18 05:00 03/02/18 06:00 Temperature Pulse Rate 79 80 83 Respiratory Rate Blood Pressure Pulse Oximetry 03/02/18 07:00 03/02/18 07:36 03/02/18 08:00 Temperature 97.4 F L Pulse Rate 78 84 84 Respiratory Rate 20 18 Blood Pressure 98/60 L Pulse Oximetry 96 93 L 03/02/18 09:00 03/02/18 10:00 03/02/18 11:00 Temperature 97.8 F Pulse Rate 83 77 77 Respiratory Rate 20 Blood Pressure 107/67 Pulse Oximetry 92 L 03/02/18 12:00 Temperature Pulse Rate 80 Respiratory Rate Blood Pressure Pulse Oximetry Intake & Output 03/01/18 03/02/18 03/02/18 18:59 06:59 18:59 Intake Total 1200 / 1200 Output Total 1700 / 1700 Balance -500 / -500 Weight 77 kg Intake: Oral 1200 / 1200 Output: Urine 1700 / 1700 Other: # Voids 3 Date of Last Bowel Movement 02/27/18 02/27/18 02/28/18 - Constitutional no acute distress - Routine HEENT Exam Head: Present: normocephalic, atraumatic Eye: Present: EOMI, PERRL, normal accommodation - Routine Neck Exam Present: supple, full ROM - Routine Chest/Breast/Axilla Exam Chest wall: Present: tenderness - Routine Respiratory Exam Present: CTA bilaterally Comments: slightly diminished left lower lobe with few crackles - Routine Cardiovascular Exam Present: RRR, S1, S2 - Routine Abdominal Exam Present: soft, normoactive bowel sounds - Routine Extremities Exam Present: pulses intact, normal capillary refill - Routine Skin Exam Present: intact, wounds Comments: prevena dressing to chest , incision intact to left leg - Routine Neurological Exam Present: alert, oriented X3, CN II-XII intact Results Procedures completed during hospitalization: - Preoperative Diagnosis (1) Unstable angina (2) CAD (coronary artery disease), [place] coronary artery Postoperative Diagnosis: same Date of procedure: 02/26/18 Procedure: CABG x 3 MELO to LAD - good SVG to D2 - good SVG to PLB - good EVH Labs on day of discharge: Labs from last 24 hours 03/02/18 03/02/18 03/01/18 11:13 07:49 21:17 POC Glucose 139 H 142 H 133 H 03/01/18 16:53 POC Glucose 133 H - Impressions ITS Impressions Gallbladder Ultrasound 02/20/18 11:54 CONCLUSION: Mild probable hepatic steatosis. Myocardial Perfusion Scan Nuc Med 02/20/18 14:59 CONCLUSION: Moderate sized moderate severity reversible anterior wall and apical perfusion abnormality. Carotid Doppler Study 02/21/18 13:57 CONCLUSION: 1. Right Internal Carotid Artery: Mild plaquing with no evidence of stenosis. 2. Left Internal Carotid Artery: Mild plaquing with no evidence of stenosis. Lower Extremity Ultrasound 02/21/18 13:57 CONCLUSION: 1. Venous mapping study as described. Venous Doppler Study 02/21/18 13:57 CONCLUSION: The study is negative for bilateral lower extremity deep venous thrombosis. Thoracic Aorta CT 02/22/18 00:00 CONCLUSION: Unremarkable CTA evaluation. Specifically no evidence of subclavian stenosis as questioned. Spleen Ultrasound 02/22/18 08:00 CONCLUSION: 1. The examination demonstrates normal echotexture with the spleen length of 12.8 cm. This is at the upper limits of normal in size. Chest X-Ray 03/02/18 06:00 CONCLUSION: Left basilar airspace disease. Discharge Plan - Discharge Disposition Patient Disposition: /Home Health Service - Discharge Condition Condition: Stable - Discharge Order Discharge Orders: Discharge Order (Routine); Ordered 03/02/18 Ordered By: Judy Meraz ED Use Only Admit Order (Routine); Ordered 02/20/18 Ordered By: Roshan Watson - Discharge Details Anticipated Discharge Date: 03/02/18 - Physicians Team Primary Care Provider: UNKNOWN, Attending Provider: Ashlie Velásquez Other Providers: Zay Bar MD ; Ashlie Velásquez MD ; Umm Alva MD ; Rogelio Jain MD ; Dhaval Perea MD ; Sam Aragon DO
[2018-03-02 14:32] VITALS: PULSE 79
[2018-03-02 14:39] VITALS: RESP 18; O2SAT 94
[2018-03-02] MEDS ORDERED: Amiodarone 200 MG Tablet PO SCH (21:00)
== END 2018-03-02 17:15 | disposition home health service (06) ==
LOC: NEPC 07:12 → NEDH 07:12 → NEPHCDU 14:10 → HCIS 02-21 10:19 → HCPC 02-23 18:41 → HCVI 02-26 11:39 → HCPC 02-27 19:44
PROVIDERS: ADMIT Thoracic Surgery (Cardiothoracic Vascular Surgery); ATTEND Thoracic Surgery (Cardiothoracic Vascular Surgery)
DX: F32.9 Major depressive disorder, single episode, unspecified; E11.65 Type 2 diabetes mellitus with hyperglycemia; Z91.19 Patient's noncompliance with other medical treatment and regimen; E11.3519 Type 2 diabetes mellitus with proliferative diabetic retinopathy with macular edema, unspecified eye; D62 Acute posthemorrhagic anemia; I70.8 Atherosclerosis of other arteries; E78.00 Pure hypercholesterolemia, unspecified; Z79.899 Other long term (current) drug therapy; N18.9 Chronic kidney disease, unspecified; R07.9 Chest pain, unspecified; R51 Headache; F10.20 Alcohol dependence, uncomplicated; E11.22 Type 2 diabetes mellitus with diabetic chronic kidney disease; D73.1 Hypersplenism; D69.59 Other secondary thrombocytopenia; Z79.4 Long term (current) use of insulin; Z79.82 Long term (current) use of aspirin; E11.40 Type 2 diabetes mellitus with diabetic neuropathy, unspecified; R94.5 Abnormal results of liver function studies; Z82.49 Family history of ischemic heart disease and other diseases of the circulatory system; I12.9 Hypertensive chronic kidney disease with stage 1 through stage 4 chronic kidney disease, or unspecified chronic kidney disease; I25.110 Atherosclerotic heart disease of native coronary artery with unstable angina pectoris; F41.9 Anxiety disorder, unspecified; K76.0 Fatty (change of) liver, not elsewhere classified